=== PATIENT | male | born 1950 | race Caucasian/White ===

== ENCOUNTER 2016-12-11 10:20 | Emergency (ER) | payer OTHER ==
[~2016-12-11 10:20] MED LIST: CYMB30CA PO; HYDR-2768 PO; LORTA5 PO; NEUR100C PO; SIMV5TAB32 PO; WAL-10TA2 PO
[2016-12-11 10:32] VITALS: BP 146/88; PULSE 75; RESP 18; TEMP 97.4; O2SAT 97
[2016-12-11] MEDS ORDERED: PROPARACAINE HCL 0.5% OPHT SOLN 15 ML BTL EACH EYE ONE (11:30)
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
[2016-12-11] MEDS ORDERED: ERYTOIN10 RIGHT EYE (11:37)
== END 2016-12-11 12:14 | disposition home or self-care (01) ==
LOC: PHEFT 10:20
DX: H10.31 Unspecified acute conjunctivitis, right eye (principal); I10 Essential (primary) hypertension; E78.00 Pure hypercholesterolemia, unspecified; Z87.09 Personal history of other diseases of the respiratory system; Z85.6 Personal history of leukemia; Z86.79 Personal history of other diseases of the circulatory system; Z86.2 Personal history of diseases of the blood and blood-forming organs and certain disorders involving the immune mechanism
CPT/HCPCS: 99283

== ENCOUNTER 2017-09-25 09:59 | Inpatient (IN) ==
--- NOTE | 2017-09-25 10:39 | ED ---
HPI General Chief complaint: Back Pain/Injury Stated complaint: Rt Side Cramping/Headache x 4 Days Time Seen by Provider: 09/25/17 10:17 History of Present Illness HPI narrative: 67-year-old male history of CLL here for evaluation of headache and numbness/tingling on his right side. Patient states that the headache started 4 days ago, was in the left side, rated 7 out of 10, comes and goes, he thought it is going to get better on its own but this morning patient woke up with numbness and tingling on his right side that started about 5 hours ago and it subsided on its own 2 hours prior to arrival to the ER. Patient states that the numbness and tingling on his right side was associated with gait instability /slow gait. The numbness/tingling went away but the slow gait is still there, he has no blurred vision, no slurred speech, no weakness or sensory loss. Patient has a history of CLL and takes oral Ibrutinib 140 mg 2 PILLS a day, he says that it usually gives him bruises, he denies any black stool, no fever or chills, no cough or congestion. No chest pain or abdominal pain. His hematology oncology is Dr. Pink at [place] Related Data Home Medications Medication Instructions Recorded Confirmed allopurinol 300 mg PO DAILY 09/25/17 09/25/17 hydrochlorothiazide 25 mg PO DAILY 09/25/17 09/25/17 loratadine 10 mg PO DAILY 09/25/17 09/25/17 simvastatin 40 mg PO QPM 09/25/17 09/25/17 sodium chloride [Nasal [place] 1 spray INTRANASAL Q4H PRN 09/25/17 09/25/17 (sodium chloride)] Allergies Allergy/AdvReac Type Severity Reaction Status Date / Time IgA less than or equal to 50 Allergy Severe Anaphylaxis Verified 09/25/17 10:01 mcg/mL immune globulin,alpha (IgA) Allergy Severe Anaphylaxis Verified 09/25/17 10:01 greater than 50 mcg/mL immune globulin,gamma (IgG) Allergy Severe Anaphylaxis Verified 09/25/17 10:01 human Review of Systems Except as stated in HPI: all other systems reviewed are negative PMFSH Medical History Medical History Leukemia, lymphocytic (Acute) Surgical History Surgical History H/O cataract removal with insertion of prosthetic lens (Acute) H/O sinus surgery (Acute) Social History Social History Substance History: No History of Abuse Second Hand Smoke Exposure: No Smoking Status: Former smoker Packs Per Day: 2 Cigarettes Per Day: 40.0 Years Smoked: 20 Pack-Years: 40.00 Smoking End Date: 40 years ago How Often Do You Have a Drink Containing Alcohol: 4 or more times a week Recent Travel in [facility] within the Last 8 Weeks: No Recent Out of Country Travel within the Last 8 Weeks: No Immunization History Tetanus Immunization: <5 Years Hx Influenza Vaccine This Season: Yes Exam Narrative Exam Narrative: GENERAL: Alert oriented x3 no acute distress. SKIN: Focused skin assessment warm/dry. HEAD: Atraumatic. Normocephalic. EYES: Pupils equal and round. No scleral icterus. No injection or drainage. ENT: No nasal bleeding or discharge. Mucous membranes pink and moist. NECK: Trachea midline. No JVD. CARDIOVASCULAR: Regular rate and rhythm. No murmur appreciated. RESPIRATORY: No accessory muscle use. Clear to auscultation. Breath sounds equal bilaterally. GASTROINTESTINAL: Abdomen soft, non-tender, nondistended. Hepatic and splenic margins not palpable. MUSCULOSKELETAL: No obvious deformities. No clubbing. No cyanosis. No edema. NEUROLOGICAL: Awake and alert. No obvious cranial nerve deficits. Motor grossly within normal limits. Normal speech. PSYCHIATRIC: Appropriate mood and affect; insight and judgment normal. [place] Coma Scale 15 Course Initial Documented Vital Signs Temperature 97.4 F L 09/25/17 10:02 Pulse Rate 78 09/25/17 10:02 Respiratory Rate 18 09/25/17 10:02 Blood Pressure 157/75 H 09/25/17 10:02 Pulse Oximetry 96 09/25/17 10:02 Last Documented Vital Signs Temperature 99 F 09/28/17 06:00 Pulse Rate 58 L 09/28/17 06:00 Respiratory Rate 18 09/28/17 09:54 Blood Pressure 138/67 09/28/17 06:00 Pulse Oximetry 98 09/28/17 06:00 Medical Decision Making MDM Narrative Medical decision making narrative: 67-year-old male here for evaluation of headache since 5 days ago has been getting worse and associated with right- sided numbness and tingling and gait imbalance. Physical examination shows no neurological findings, labs consistent with CLL including leukocytosis, patient usually has leukocytosis and the last CBC showed WBCs of 188,000. CAT scan of the head shows subdural hematoma on the left was 9 mm midline shift, vitals are stable. [place] Coma Scale 15, pupillary reflexes intact, I spoke with , neurosurgeon who accepted the patient. Reexamination of the patient prior to transfer shows no change in the clinical picture or the physical exam findings. [place] Coma Scale prior to transfer is still 15. Lab Data Result diagrams: 09/26/17 04:10 09/26/17 04:10 Lab Results 09/25/17 09/25/17 09/25/17 Range/Units 10:43 10:43 10:43 CBC w Diff Slide review pending WBC 170.3 H (4.0-11.0) th/mm3 RBC 3.78 L (4.50-5.90) mil/mm3 Hgb 12.0 L (13.0-17.0) gm/dL Hct 35.7 L (39.0-51.0) % MCV 94.6 (80.0-100.0) fL MCH 31.7 (27.0-34.0) pg MCHC 33.5 (32.0-36.0) % RDW 16.3 (11.6-17.2) % Plt Count 163 (150-450) th/mm3 MPV 9.3 (7.0-11.0) fL Neut % (Auto) 8.6 L (16.0-70.0) % Lymph % (Auto) 89.6 H (9.0-44.0) % [place] % (Auto) 1.5 (0.0-8.0) % Eos % (Auto) 0.1 (0.0-4.0) % Baso % (Auto) 0.2 (0.0-2.0) % Neut # (Auto) 14.6 H (1.8-7.7) th/mm3 Lymph # (Auto) 152.6 H (1.0-4.8) th/mm3 [place] # (Auto) 2.6 H (0.0-0.9) th/mm3 Eos # (Auto) 0.2 (0.0-0.4) th/mm3 Baso # (Auto) 0.3 H (0.0-0.2) th/mm3 WBC Differential Manual diff final Seg Neuts % (Manual) 8 L (16-70) % Lymphocytes % (Manual) 92 H (9-44) % Abs Neuts (Manual) 13.6 H (1.8-7.7) th/mm3 Smudge Cells Present H (None) Platelet Estimate Normal (Normal) Platelet Morphology Normal (Normal) PT 9.5 L (9.8-11.6) sec INR 0.9 Ratio APTT 28.4 (24.3-30.1) sec Sodium 132 L (136-145) meq/L Potassium 3.4 L (3.5-5.1) meq/L Chloride 96 L (98-107) meq/L Carbon Dioxide 26.8 (21.0-32.0) meq/L Anion Gap 9 (5-15) meq/L BUN 12 (7-18) mg/dL Creatinine 1.00 (0.60-1.30) mg/dL Estimated GFR 74 L (>89) mL/min Random Glucose 115 H (74-106) mg/dL Lactic Acid (0.4-2.0) mmol/L Calcium 9.1 (8.5-10.1) mg/dL Total Bilirubin 0.6 (0.2-1.0) mg/dL AST 119 H (15-37) U/L ALT 249 H (12-78) U/L Alkaline Phosphatase 286 H (45-117) U/L Ammonia (11-32) mcmol/L Troponin I Less than 0.02 L (0.02-0.05) ng/mL Total Protein 7.0 (6.4-8.2) g/dL Albumin 3.2 L (3.4-5.0) g/dL TSH (0.358-3.740) uIU/mL Blood Type Blood Type Recheck Antibody Screen Bld Prod Order Comment 09/25/17 09/25/17 09/25/17 Range/Units 10:43 10:43 18:24 CBC w Diff WBC (4.0-11.0) th/mm3 RBC (4.50-5.90) mil/mm3 Hgb (13.0-17.0) gm/dL Hct (39.0-51.0) % MCV (80.0-100.0) fL MCH (27.0-34.0) pg MCHC (32.0-36.0) % RDW (11.6-17.2) % Plt Count (150-450) th/mm3 MPV (7.0-11.0) fL Neut % (Auto) (16.0-70.0) % Lymph % (Auto) (9.0-44.0) % [place] % (Auto) (0.0-8.0) % Eos % (Auto) (0.0-4.0) % Baso % (Auto) (0.0-2.0) % Neut # (Auto) (1.8-7.7) th/mm3 Lymph # (Auto) (1.0-4.8) th/mm3 [place] # (Auto) (0.0-0.9) th/mm3 Eos # (Auto) (0.0-0.4) th/mm3 Baso # (Auto) (0.0-0.2) th/mm3 WBC Differential Seg Neuts % (Manual) (16-70) % Lymphocytes % (Manual) (9-44) % Abs Neuts (Manual) (1.8-7.7) th/mm3 Smudge Cells (None) Platelet Estimate (Normal) Platelet Morphology (Normal) PT (9.8-11.6) sec INR Ratio APTT (24.3-30.1) sec Sodium (136-145) meq/L Potassium (3.5-5.1) meq/L Chloride (98-107) meq/L Carbon Dioxide (21.0-32.0) meq/L Anion Gap (5-15) meq/L BUN (7-18) mg/dL Creatinine (0.60-1.30) mg/dL Estimated GFR (>89) mL/min Random Glucose (74-106) mg/dL Lactic Acid 0.7 (0.4-2.0) mmol/L Calcium (8.5-10.1) mg/dL Total Bilirubin (0.2-1.0) mg/dL AST (15-37) U/L ALT (12-78) U/L Alkaline Phosphatase (45-117) U/L Ammonia 13 (11-32) mcmol/L Troponin I (0.02-0.05) ng/mL Total Protein (6.4-8.2) g/dL Albumin (3.4-5.0) g/dL TSH (0.358-3.740) uIU/mL Blood Type O Positive Blood Type Recheck Required Antibody Screen Negative Bld Prod Order Comment 09/26/17 09/26/17 09/26/17 Range/Units 04:10 04:10 06:00 CBC w Diff WBC 153.7 H (4.0-11.0) th/mm3 RBC 3.37 L (4.50-5.90) mil/mm3 Hgb 10.1 L (13.0-17.0) gm/dL Hct 31.1 L (39.0-51.0) % MCV 92.4 (80.0-100.0) fL MCH 30.1 (27.0-34.0) pg MCHC 32.6 (32.0-36.0) % RDW 16.4 (11.6-17.2) % Plt Count 163 (150-450) th/mm3 MPV 10.7 (7.0-11.0) fL Neut % (Auto) (16.0-70.0) % Lymph % (Auto) (9.0-44.0) % [place] % (Auto) (0.0-8.0) % Eos % (Auto) (0.0-4.0) % Baso % (Auto) (0.0-2.0) % Neut # (Auto) (1.8-7.7) th/mm3 Lymph # (Auto) (1.0-4.8) th/mm3 [place] # (Auto) (0.0-0.9) th/mm3 Eos # (Auto) (0.0-0.4) th/mm3 Baso # (Auto) (0.0-0.2) th/mm3 WBC Differential Seg Neuts % (Manual) (16-70) % Lymphocytes % (Manual) (9-44) % Abs Neuts (Manual) (1.8-7.7) th/mm3 Smudge Cells (None) Platelet Estimate (Normal) Platelet Morphology (Normal) PT (9.8-11.6) sec INR Ratio APTT (24.3-30.1) sec Sodium 136 (136-145) meq/L Potassium 3.5 (3.5-5.1) meq/L Chloride 100 (98-107) meq/L Carbon Dioxide 24.5 (21.0-32.0) meq/L Anion Gap 12 (5-15) meq/L BUN 13 (7-18) mg/dL Creatinine 0.99 (0.60-1.30) mg/dL Estimated GFR 75 L (>89) mL/min Random Glucose 94 (74-106) mg/dL Lactic Acid (0.4-2.0) mmol/L Calcium 8.5 (8.5-10.1) mg/dL Total Bilirubin 0.5 (0.2-1.0) mg/dL AST 51 H (15-37) U/L ALT 158 H (12-78) U/L Alkaline Phosphatase 269 H (45-117) U/L Ammonia (11-32) mcmol/L Troponin I (0.02-0.05) ng/mL Total Protein 6.0 L D (6.4-8.2) g/dL Albumin 2.8 L (3.4-5.0) g/dL TSH 1.840 Cancelled (0.358-3.740) uIU/mL Blood Type Blood Type Recheck Antibody Screen Bld Prod Order Comment 09/26/17 09/26/17 Range/Units 08:28 08:28 CBC w Diff WBC (4.0-11.0) th/mm3 RBC (4.50-5.90) mil/mm3 Hgb (13.0-17.0) gm/dL Hct (39.0-51.0) % MCV (80.0-100.0) fL MCH (27.0-34.0) pg MCHC (32.0-36.0) % RDW (11.6-17.2) % Plt Count (150-450) th/mm3 MPV (7.0-11.0) fL Neut % (Auto) (16.0-70.0) % Lymph % (Auto) (9.0-44.0) % [place] % (Auto) (0.0-8.0) % Eos % (Auto) (0.0-4.0) % Baso % (Auto) (0.0-2.0) % Neut # (Auto) (1.8-7.7) th/mm3 Lymph # (Auto) (1.0-4.8) th/mm3 [place] # (Auto) (0.0-0.9) th/mm3 Eos # (Auto) (0.0-0.4) th/mm3 Baso # (Auto) (0.0-0.2) th/mm3 WBC Differential Seg Neuts % (Manual) (16-70) % Lymphocytes % (Manual) (9-44) % Abs Neuts (Manual) (1.8-7.7) th/mm3 Smudge Cells (None) Platelet Estimate (Normal) Platelet Morphology (Normal) PT (9.8-11.6) sec INR Ratio APTT (24.3-30.1) sec Sodium (136-145) meq/L Potassium (3.5-5.1) meq/L Chloride (98-107) meq/L Carbon Dioxide (21.0-32.0) meq/L Anion Gap (5-15) meq/L BUN (7-18) mg/dL Creatinine (0.60-1.30) mg/dL Estimated GFR (>89) mL/min Random Glucose (74-106) mg/dL Lactic Acid (0.4-2.0) mmol/L Calcium (8.5-10.1) mg/dL Total Bilirubin (0.2-1.0) mg/dL AST (15-37) U/L ALT (12-78) U/L Alkaline Phosphatase (45-117) U/L Ammonia (11-32) mcmol/L Troponin I (0.02-0.05) ng/mL Total Protein (6.4-8.2) g/dL Albumin (3.4-5.0) g/dL TSH (0.358-3.740) uIU/mL Blood Type O Positive Blood Type Recheck Not needed Antibody Screen Bld Prod Order Comment Cancelled Imaging Data Radiologist's impression: ITS Impressions Chest X-Ray 09/25/17 00:00 CONCLUSION: Mild basilar opacity, probably atelectasis. Small right pleural effusion. Head CT 09/25/17 10:29 CONCLUSION: 1. Acute left-sided subdural hematoma with [id number] midline shift of 9 mm. Liver Ultrasound 09/26/17 00:00 CONCLUSION: 1. Hepatosplenomegaly with mild increase in hepatic echogenicity. Differential considerations include hepatitis, hepatic steatosis or medical liver disease. 2. Diffuse gallbladder wall thickening. This finding is typically seen with chronic liver disease/hypoalbuminemia. Discharge Plan Discharge Disposition Patient Disposition: 02 [place] [facility] [place] Condition: Stable Physicians Team ED Provider: Yamil Randle Attending Provider: See Rich Other Providers: Maria Isabel Hernandez ; Willie Gallagher Discharge Interventions Interventions: ED Discharge Assessment Last Done: 09/25/17 12:35 Vital Signs Last Done: 09/25/17 12:11 Status ED Status: Left Department Discharge Information Discharge Date/Time: 09/25/17 12:35
[2017-09-25 10:55] LABS: Baso # (Auto) 0.3 th/mm3 (0.0-0.2); Baso % (Auto) 0.2 % (0.0-2.0); Eos # (Auto) 0.2 th/mm3 (0.0-0.4); Eos % (Auto) 0.1 % (0.0-4.0); Hematocrit 35.7 % (39.0-51.0); Lymph # (Auto) 152.6 th/mm3 (1.0-4.8); Lymph % (Auto) 89.6 % (9.0-44.0); Mean Corpuscular HGB Conc 33.5 % (32.0-36.0); Mean Corpuscular Hemoglobin 31.7 pg (27.0-34.0); Mean Corpuscular Volume 94.6 fL (80.0-100.0); Mean Platelet Volume 9.3 fL (7.0-11.0); Mono # (Auto) 2.6 th/mm3 (0.0-0.9); Mono % (Auto) 1.5 % (0.0-8.0); Neut # (Auto) 14.6 th/mm3 (1.8-7.7); Neut % (Auto) 8.6 % (16.0-70.0); Platelet Count 163 th/mm3 (150-450); Red Blood Count 3.78 mil/mm3 (4.50-5.90); Red Cell Distribution Width 16.3 % (11.6-17.2); White Blood Count 170.3 th/mm3 (4.0-11.0)
[2017-09-25 11:02] LABS: Chloride 96 meq/L (98-107); Potassium 3.4 meq/L (3.5-5.1); Sodium 132 meq/L (136-145)
[2017-09-25 11:05] LABS: Calcium 9.1 mg/dL (8.5-10.1)
[2017-09-25 11:06] LABS: Albumin 3.2 g/dL (3.4-5.0); Anion Gap 9 meq/L (5-15); Blood Urea Nitrogen 12 mg/dL (7-18); Carbon Dioxide 26.8 meq/L (21.0-32.0); Glucose,Random 115 mg/dL (74-106)
[2017-09-25 11:08] LABS: Activated Partial Thrombo Time 28.4 sec (24.3-30.1); INR 0.9 Ratio; Prothrombin Time 9.5 sec (9.8-11.6)
[2017-09-25 11:09] LABS: Alanine Aminotransferase 249 U/L (12-78); Aspartate Aminotransferase 119 U/L (15-37); Glomerular Filtration Rate 74 mL/min (>89)
[2017-09-25 11:12] LABS: Alkaline Phosphatase 286 U/L (45-117)
[2017-09-25 11:22] LABS: Lymphocytes 92 % (9-44); Platelet Estimate Normal (Normal); Platelet Morphology Normal (Normal); Smudge Cells Present
[2017-09-25] MEDS ORDERED: Morphine Sulfate Inj 2 MG/ML Vial IV.PUSH ONE (12:07)
[2017-09-25] MEDS ORDERED: Thrombin Topical Soln 5,000 UNIT Vial TOPICAL ONE (13:19)
[2017-09-25] MEDS ORDERED: Bupivacaine/Epinephrine 0.5% Inj 50 ML Vial ONE (13:19)
[2017-09-25] MEDS ORDERED: Gelatin Size 100 Topical Foam ONE (13:19)
[2017-09-25] MEDS ORDERED: Sodium Chlor 0.9% Inj 250 ML ONE (13:24)
[2017-09-25] MEDS ORDERED: Sugammadex Inj 200 MG/2 ML Vial IV.PUSH ONE (13:28)
--- NOTE | 2017-09-25 14:13 | P.CONCC ---
History of Present Illness Consult date: 09/25/17 Requesting Physician: See Rich Reason for Consult: SDH Primary Care Provider: [facility] Family Provider: [facility] History of Present Illness: 67 yo WM with PMH of CLL (diagnosed 2007), HTN, HLD, gout who presented with 4 day history of headache. Today he had numbness and tingling on his right side and unsteady gait. CT brain demonstrates acute/subacute L subdural, 2.3 cm with 9 mm midline shift. He denies known trauma. He is not on anticoagulant however he has been treated for his CLL with ibrutinib. He states this was causing bruising so he held it for 30 days and resumed 09/12/17 at a lower dose. His last dose was the morning of 09/24. Review of medical literature indicates this drug is associated with spontaneous SDH and would place patient at risk for operative bleeding. Discussed with Dr. Gallagher and Dr. Rich regarding implications for operative timing. His oncologist is Dr. Minor at [facility] in [place]. Review of Systems All other systems reviewed negative except as stated in HPI PMFSH - History History Provided By: Patient - Medical History Medical History: Medical History (Last Updated 09/25/17 @ 10:24 by Keisha Clemente) Leukemia, lymphocytic - Surgical History Surgical History: Surgical History (Last Updated 09/25/17 @ 10:26 by Keisha Clemente) H/O cataract removal with insertion of prosthetic lens H/O sinus surgery - Tobacco History Second Hand Smoke Exposure: No Tobacco Use In Past 30 Days: No Smoking Status: Former smoker Packs Per Day: 2 Years Smoked: 20 Smoking End Date: 40 years ago - Alcohol History How Often Do You Have a Drink Containing Alcohol: 4 or more times a week - Substance Use History Substance History: No History of Abuse - Travel History Recent Travel in the [place] Within the Last 8 Weeks: No Recent Travel Out of the Country Within the Last 8 Weeks: No - Immunization History Tetanus Immunization: <5 Years Hx Influenza Vaccine This Season: Yes Medications and Allergies Allergies Allergy/AdvReac Type Severity Reaction Status Date / Time IgA less than or equal to 50 Allergy Severe Anaphylaxis Verified 09/25/17 10:01 mcg/mL immune globulin,alpha (IgA) Allergy Severe Anaphylaxis Verified 09/25/17 10:01 greater than 50 mcg/mL immune globulin,gamma (IgG) Allergy Severe Anaphylaxis Verified 09/25/17 10:01 human Home Medications Medication Instructions Recorded Confirmed Type allopurinol 300 mg PO DAILY 09/25/17 09/25/17 History hydrochlorothiazide 25 mg PO DAILY 09/25/17 09/25/17 History loratadine 10 mg PO DAILY 09/25/17 09/25/17 History simvastatin 40 mg PO QPM 09/25/17 09/25/17 History sodium chloride [Nasal [place] 1 spray INTRANASAL Q4H PRN 09/25/17 09/25/17 History (sodium chloride)] Physical Exam Vital signs: Vital Signs 09/25/17 10:02 09/25/17 11:22 09/25/17 12:11 Temperature 97.4 F L Pulse Rate 78 75 71 Respiratory Rate 18 20 16 Blood Pressure 157/75 H 148/89 H 153/86 H Pulse Oximetry 96 96 96 Intake & Output 09/24/17 09/25/17 09/25/17 18:59 06:59 18:59 Weight 91.1 kg Narrative: GENERAL: Well-nourished, well-developed patient who is alert and conversant SKIN: Warm and dry. No petechiae HEAD: Atraumatic. Normocephalic. EYES: Pupils equal and round. No scleral icterus. No injection or drainage. ENT: No nasal bleeding or discharge. Mucous membranes pink and moist. NECK: Trachea midline. No JVD. CARDIOVASCULAR: Regular rate and rhythm. No murmurs rubs or gallops. RESPIRATORY: No accessory muscle use. Clear to auscultation. Breath sounds equal bilaterally. On room air. GASTROINTESTINAL: Abdomen soft, non-tender, nondistended. Bowel sounds present. MUSCULOSKELETAL: Extremities without clubbing, cyanosis, or edema. No obvious deformities. NEUROLOGICAL: Awake and alert. Oriented 3. At times having difficulty recalling certain details of his medical history. No obvious cranial nerve deficits, no facial droop, normal tongue protrusion. Motor grossly within normal limits. Five out of 5 muscle strength in the arms and legs. Some fine motor deficits of right hand Normal speech. No pronator drift. Assessment and Plan - Problem List (1) Subdural hematoma Code(s): S06.5X9A - Traumatic subdural hemorrhage with loss of consciousness of unspecified duration, initial encounter Status: Acute (2) CLL (chronic lymphocytic leukemia) Code(s): C91.90 - Lymphoid leukemia, unspecified not having achieved remission Status: Chronic (3) Bleeding in brain due to blood coagulation disorder Code(s): I60.9 - Nontraumatic subarachnoid hemorrhage, unspecified; D68.9 - Coagulation defect, unspecified Status: Acute (4) HTN (hypertension) Code(s): I10 - Essential (primary) hypertension Status: Chronic (5) HLD (hyperlipidemia) Code(s): E78.5 - Hyperlipidemia, unspecified Status: Chronic (6) Transaminitis Code(s): R74.0 - Nonspecific elevation of levels of transaminase and lactic acid dehydrogenase [LDH] Status: Chronic (7) Hypokalemia Code(s): E87.6 - Hypokalemia Status: Acute (8) Hyponatremia Code(s): E87.1 - Hypo-osmolality and hyponatremia Status: Chronic - Assessment and Plan Plan: NEURO: Acute on subacute left subdural hematoma, 2.3 cm with 9 mm midline shift. Admission to [facility] with neuro monitoring Hold ibrutinib. Will not be a candidate for resuming this, will need alternate therapy for CLL as this likely contributed to SDH. Keppra 500 mg po bid. Plan for eventual SDH evacuation, though discussing operative timing in view of antiplatelet effect of ibrutinib. Neurosurgery admitted, Dr. Rich RESP: On room air He is currently protecting his airway. Will intubate if loss of airway protection. CV: Hypertension Hyperlipidemia Hold statin for now, LFTs elevated. Labetalol prn for SBP >170 per NSG. GI: Transaminitis. Passed swallow screen. Regular diet Elevated LFT ?2ry CLL. Trend LFTs. Right upper quadrant ultrasound. FEN/RENAL: Mild Hyponatremia Hypokalemia Trend sodium daily. Hold HCTZ which may contribute to hyponatremia. 0.9 NaCL with 20 MEq KCL/L @ 100/hr. Voiding Replace electrolytes per electrolyte protocol. ID: Monitor for signs and symptoms of infection HEME: CLL - WBC 170k (per Dr. Gallagher this is expected effect of reinitiation of ibrutinib on 09/12) Coags and platelet count normal. Ibrutinib causes bleeding, T1/2 4-6 hours.. Causes platelet dysfunction (which may be irreversible for life of platelets) but appears mechanism of bleeding risk is not entirely clear and no reversal agent. Discussed with Dr. Gallagher who would recommend holding off on surgery if possible. I contacted Dr. Rich and will hold off on OR today unless declines neurologically and it becomes unavoidable. Will transfuse with platelets preoperatively. Dr. Gallagher also indicates that alternate agent must be chosen in the future for CLL management. ENDO: Check TSH PROPH: SCDs for DVT prophylaxis. Pharmacology DVT prophylaxis contraindicated due to subdural. ACCESS: Peripheral IV providing adequate access at this time. Patient is critically ill with acute on subacute subdural hematoma which will require eventual operative evacuation. Requires close monitoring in ICU due to risk of loss of airway protection. Required literature review, urgent consultation with Dr. Gallagher and discussion with Dr. Rich due to implications of chemotherapeutic agent on bleeding risk and operative timing. CCT 60 minutes exclusive of separately billable procedures.
--- NOTE | 2017-09-25 14:21 | P.HPNS ---
History of Present Illness Primary Care Physician: [facility] History of Present Illness: 67-year-old male history of chronic lymphocytic leukemia who presented to [facility] emergency room today for evaluation of headache and numbness/tingling on his right side. Patient states that the headache started 4 days ago, was in the left side, rated 7 out of 10, comes and goes associated with nausea, he thought it is going to get better on its own but this morning patient woke up with numbness and weakness on his right side that started about 5 hours ago and subsequently did improve prior to arrival to the ER. Patient states that the numbness and tingling on his right side was associated with gait instability/ slow gait. He relates that the numbness has resolved and the weakness is gotten better but not resolved and has persistent abnormal, he has no blurred vision, no slurred speech, no weakness or sensory loss. Patient has a history of CLL and takes oral Ibrutinib 140 mg 2 PILLS a day, he says that it usually gives him bruises, he denies any black stool, no fever or chills, no cough or congestion. No chest pain or abdominal pain. His hematology oncology is Dr. Pink at [place]. CT scan of the head obtained reveals a large left sided acute on chronic subdural hemorrhage with mass-effect and midline shift. He denies any history of falls or trauma to the head any time in the last several weeks. He is transferred to [facility] intensive care unit for further management. - Diagnosis (1) Subdural hematoma (2) CLL (chronic lymphocytic leukemia) (3) Bleeding in brain due to blood coagulation disorder - Inpatient Certification If this patient has been admitted as an Inpatient: I certify that the inpatient services were ordered in accordance with Medicare regulations governing the order. This includes certification that hospital inpatient services are reasonable and necessary and in the case of services not specified as inpatient-only under 42 CFR 419.22(n), that they are appropriately provided as inpatient services in accordance to with the 2-midnight benchmark under 43 CFR 412.3(e) Review of Systems Constitutional: Reports body ache(s), Reports fatigue, Reports headache(s), Reports weakness Ears, Nose, Mouth, and Throat: Reports headache(s), Reports poor balance Gastrointestinal: Reports abdominal pain, Reports vomiting Musculoskeletal: Reports muscle cramps, Reports muscle weakness, Reports numbness, Reports tingling Skin/Breast: Reports bleeding lesions, Reports unusual bruising Neurologic: Reports headache(s), Reports lack of coordination, Reports localized weakness, Reports numbness, Reports sensory deficit, Reports tingling , Reports unsteadiness, Reports weakness Hematologic/Lymphatic: Reports easy bleeding, Reports easy bruising PMFSH - History History Provided By: Patient - Medical History Medical History: Medical History (Last Updated 09/25/17 @ 10:24 by Keisha Clemente) Leukemia, lymphocytic - Surgical History Surgical History: Surgical History (Last Updated 09/25/17 @ 10:26 by Keisha Clemente) H/O cataract removal with insertion of prosthetic lens H/O sinus surgery - Tobacco History Second Hand Smoke Exposure: No Tobacco Use In Past 30 Days: No Smoking Status: Former smoker - Alcohol History How Often Do You Have a Drink Containing Alcohol: 4 or more times a week ( Drinks of 5 beers a day) - Substance Use History Substance History: No History of Abuse - Travel History Recent Travel in the [facility] Within the Last 8 Weeks: No Recent Travel Out of the Country Within the Last 8 Weeks: No - Immunization History Tetanus Immunization: <5 Years Hx Influenza Vaccine This Season: Yes Medications and Allergies Allergies Allergy/AdvReac Type Severity Reaction Status Date / Time IgA less than or equal to 50 Allergy Severe Anaphylaxis Verified 09/25/17 10:01 mcg/mL immune globulin,alpha (IgA) Allergy Severe Anaphylaxis Verified 09/25/17 10:01 greater than 50 mcg/mL immune globulin,gamma (IgG) Allergy Severe Anaphylaxis Verified 09/25/17 10:01 human Home Medications Medication Instructions Recorded Confirmed Type allopurinol 300 mg PO DAILY 09/25/17 09/25/17 History hydrochlorothiazide 25 mg PO DAILY 09/25/17 09/25/17 History ibrutinib 280 mg PO DAILY 09/25/17 09/25/17 History loratadine 10 mg PO DAILY 09/25/17 09/25/17 History simvastatin 40 mg PO QPM 09/25/17 09/25/17 History sodium chloride [Nasal [place] 1 spray INTRANASAL Q4H PRN 09/25/17 09/25/17 History (sodium chloride)] Exam Vital signs: Vital Signs 09/25/17 10:02 09/25/17 11:22 09/25/17 12:11 Temperature 97.4 F L Pulse Rate 78 75 71 Respiratory Rate 18 20 16 Blood Pressure 157/75 H 148/89 H 153/86 H Pulse Oximetry 96 96 96 Intake & Output 09/24/17 09/25/17 09/25/17 18:59 06:59 18:59 Weight 91.1 kg - Constitutional no acute distress, obese - Routine HEENT Exam Head: Present: normocephalic, atraumatic Eye: Present: EOMI, PERRL ENT: Present: mucous membranes moist, oropharynx clear, dentition normal (Wears partial dentures), external ear normal - Routine Neck Exam Present: supple, full ROM, trachea midline - Routine Respiratory Exam Present: CTA bilaterally - Routine Cardiovascular Exam Present: RRR, S1 - Routine Abdominal Exam Present: soft, normoactive bowel sounds, tenderness (Right upper quadrant) - Routine Extremities Exam Present: full ROM, normal capillary refill - Routine Skin Exam Present: intact, petechiae - Routine Neurological Exam Present: alert, oriented X3, CN II-XII intact, motor deficit (Mild right-sided weakness especially the right leg 4/5), plantar reflex, abnormal gait, moving all extremities, normal speech Results - Laboratory Findings CBC and BMP: 09/25/17 10:43 09/25/17 10:43 Abnormal lab findings: Abnormal Labs 09/25/17 09/25/17 09/25/17 10:43 10:43 10:43 WBC 170.3 H RBC 3.78 L Hgb 12.0 L Hct 35.7 L Neut % (Auto) 8.6 L Lymph % (Auto) 89.6 H Neut # (Auto) 14.6 H Lymph # (Auto) 152.6 H Payne # (Auto) 2.6 H Baso # (Auto) 0.3 H Seg Neuts % (Manual) 8 L Lymphocytes % (Manual) 92 H Abs Neuts (Manual) 13.6 H Smudge Cells Present H PT 9.5 L Sodium 132 L Potassium 3.4 L Chloride 96 L Estimated GFR 74 L Random Glucose 115 H AST 119 H ALT 249 H Alkaline Phosphatase 286 H Troponin I Less than 0.02 L Albumin 3.2 L - Diagnostic Findings Additional findings: CT scan of the head shows large left frontotemporoparietal 2.3 cm thick subdural hemorrhage acute on chronic components with mass-effect and midline shift about 10 mm left to right Caprini VTE Risk Assessment Caprini VTE Risk Assessment: Moderate/High Risk (score >= 2) VTE Pharmacological Exception Reason: Hemorrhage Caprini Risk Assessment Model: Point Value = 1 Point Value = 2 Point Value = 3 Point Value = 5 Age 41-60 Minor surgery BMI > 25 kg/m2 Swollen legs Varicose veins or History of unexplained or recurrent spontaneous Oral contraceptives or hormone replacement Sepsis (< 1 month) Serious lung disease, including pneumonia (< 1 month) Abnormal pulmonary function Acute myocardial infarction Congestive heart failure (< 1 month) History of inflammatory bowel disease Medical patient at bed rest Age 61-74 Arthroscopic surgery Major open surgery (> 45 min) Laparoscopic surgery (> 45 min) Malignancy Confined to bed (> 72 hours) Immobilizing plaster cast Central venous access Age >= 75 History of VTE Family history of VTE Factor V Leiden Prothrombin [id number] Lupus anticoagulant Anticardiolipin antibodies Elevated serum homocysteine Heparin-induced thrombocytopenia Other congenital or acquired thrombophilia Stroke (< 1 month) Elective arthroplasty Hip, pelvis, or leg fracture Acute spinal cord injury (< 1 month) Prophylaxis Regimen: Total Risk Factor Score Risk Level Prophylaxis Regimen 0-1 Low Early ambulation 2 Moderate Order ONE of the following: *Sequential Compression Device (SCD) *Heparin 5000 units SQ BID 3-4 Higher Order ONE of the following medications: *Heparin 5000 units SQ TID *Enoxaparin/Lovenox 40 mg SQ daily (WT < 150 kg, CrCl > 30 mL/min) *Enoxaparin/Lovenox 30 mg SQ daily (WT < 150 kg, CrCl > 10-29 mL/min) *Enoxaparin/Lovenox 30 mg SQ BID (WT < 150 kg, CrCl > 30 mL/min) AND/OR *Sequential Compression Device (SCD) 5 or more Highest Order ONE of the following medications: *Heparin 5000 units SQ TID (Preferred with Epidurals) *Enoxaparin/Lovenox 40 mg SQ daily (WT < 150 kg, CrCl > 30 mL/min) *Enoxaparin/Lovenox 30 mg SQ daily (WT < 150 kg, CrCl > 10-29 mL/min) *Enoxaparin/Lovenox 30 mg SQ BID (WT < 150 kg, CrCl > 30 mL/min) AND *Sequential Compression Device (SCD) Assessment and Plan - Assessment (1) Subdural hematoma Code(s): S06.5X9A - Traumatic subdural hemorrhage with loss of consciousness of unspecified duration, initial encounter Status: Acute (2) CLL (chronic lymphocytic leukemia) Code(s): C91.90 - Lymphoid leukemia, unspecified not having achieved remission Status: Acute (3) Bleeding in brain due to blood coagulation disorder Code(s): I60.9 - Nontraumatic subarachnoid hemorrhage, unspecified; D68.9 - Coagulation defect, unspecified Status: Acute - Plan The plan was for an emergent left craniotomy for subdural hemorrhage evacuation. Dr. Hernandez the merchandise execution leader discussed the side effects of the chemotherapy medication Ibrutinib with proj mgr Dr. Gallagher and was informed that this can affect platelet function and he would prefer that we will hold off on surgery until 48 hours from the last dose which will be tomorrow and also transfuse him with platelets prior to surgery to decrease risk of further bleeding complications. Accordingly at this point he will be admitted to the intensive care unit for close observation and monitoring. We will keep his head of bed elevated at 30, Keppra for seizure prophylaxis and mechanical DVT prophylaxis. Craniotomy will be scheduled for tomorrow with platelet transfusion prior to surgery unless his neurologic condition deteriorates overnight.
[2017-09-25] MEDS ORDERED: Sodium Chloride 0.65% Nasal Spray 45 ML Bottle EACH NARE PRN (14:26)
[2017-09-25] MEDS ORDERED: Calcium Gluconate Inj 1 GM in Sodium Chlor 0.9% Inj 100 ML IV.SIG PRN (14:27)
[2017-09-25] MEDS ORDERED: Bisacodyl 10 MG Supp RECTAL PRN (14:27)
[2017-09-25] MEDS ORDERED: Acetaminophen 325 MG Tablet PO PRN (14:27)
[2017-09-25] MEDS ORDERED: Magnesium Sulfate Inj 2 GM in Sodium Chlor 0.9% Inj 96 ML IV.SIG PRN (14:27)
[2017-09-25] MEDS ORDERED: Potassium Chlor 20 mEq Premix 20 MEQ/100 ML PIGGYBACK IV.SIG PRN (14:27)
[2017-09-25] MEDS ORDERED: Menthol 5.8 MG Lozenge BUCCAL PRN (14:27)
[2017-09-25] MEDS ORDERED: Aluminum/Magnesium/Simethacone Susp 30 ML UDC PO PRN (14:27)
[2017-09-25] MEDS ORDERED: levETIRAcetam 1000mg/100mL Inj 100 ML IV.SIG ONE (14:30)
--- NOTE | 2017-09-25 16:18 | XR ---
EXAM DATE: 09/25/2017 3:46 PM EDT AGE/SEX: 67 years / Male INDICATIONS: Shortness of breath. CLINICAL DATA: This is the patient's initial encounter. Patient reports that signs and symptoms have been present for 1 day and indicates a pain score of 0/10. MEDICAL/SURGICAL HISTORY: Asthma. None. COMPARISON: [facility], CHEST SINGLE AP, 11/30/2014. . FINDINGS: Mild basilar airspace disease. Probable trace right pleural fluid. Heart size within normal limits. T ortuous aorta. No pneumothorax. CONCLUSION: Mild basilar opacity, probably atelectasis. Small right pleural effusion. Electronically signed by: Stan Zayas MD 09/25/2017 4:17 PM EDT
[2017-09-25] MEDS: Morphine Inj 4 MG/ML Vial IV.PUSH PRN (18:32)
[2017-09-25] MEDS: levETIRAcetam 500 MG Tablet PO SCH (20:02)
[2017-09-25] MEDS: Senna/Docusate Sodium 8.6/50 MG Tablet PO SCH (20:02)
--- NOTE | 2017-09-25 21:23 | MB ---
cc: Willie Gallagher MD, Richard MD DATE: 09/25/2017 REASON FOR CONSULTATION: patient with chronic lymphocytic leukemia on ibrutinib with a subdural hematoma, which will require surgical evacuation. PATIENT PROFILE: The patient is a 67-year-old white male. He has been twice. He has 2 children, both sons. He was born in [place], [place]. He is retired and was a richards. He stopped smoking 40 years ago and had smoked less than a pack of cigarettes per day for 20 years. He has exposure to Agent [place] when he was in [place]. He has 5-6 beers per day. HISTORY OF PRESENT ILLNESS: The patient is a 67-year-old male who was diagnosed with chronic lymphocytic leukemia in 2007. He has had multiple treatments. His medical oncologist is Dr. Minor in [place], [place]. In 04/2017 the patient had a white count of 400,000 and had significant enlargement of lymph nodes. He was started on ibrutinib 3 tablets a day in 04/2017. The ibrutinib was successful with a marked decrease in the adenopathy, although, as expected the white count has remained elevated. He had significant ecchymoses and the ibrutinib was stopped for about a month. The ecchymoses resolved within about a week of stopping the ibrutinib. Approximately 6 weeks ago, the ibrutinib was started again at a dose of 2 pills per day. Four or 5 days ago, he developed headache and then clumsiness of gait. He also had some vague numbness or tingling on the right side. He denies any weakness involving either right or left side. He had a CT scan of the head on 09/25/2017. I have reviewed the images. He has an acute left subdural hematoma measuring 2-3 cm. There is mass effect and a left to right midline shift of 9 mm. Since his hospitalization, he indicates that there has been no deterioration. The last time he took ibrutinib was 09/24 at 2 p.m. Current CBC and platelet count from 09/25/2017: Hemoglobin 12, white count 170,000, platelets 163,000 with 89% lymphocytes and 8% neutrophils. PT is 9.5, PTT is 28. Electrolytes, BUN and creatinine notable for a bilirubin of 0.6, AST 119, ALT 249 and alkaline phosphatase is 286. Chest x-ray dated 09/25/2017 shows mild basilar opacity, probably atelectasis with a small right pleural effusion. PAST SURGICAL HISTORY: 1. Sinus surgery on 3 occasions. 2. Cataract surgery. PAST MEDICAL HISTORY: 1. Chronic lymphocytic leukemia, dating back to 2007. 2. Obesity. 3. Alcohol abuse. 4. Elevated cholesterol. 5. History of high blood pressure. MEDICATIONS PRIOR TO ADMISSION: 1. Ibrutinib 2 tablets a day, last tablet 2 p.m. 09/24. 2. Simvastatin 40 mg a day. 3. Hydrochlorothiazide 25 mg a day. 4. Allopurinol 300 mg a day. ALLERGIES: THE PATIENT MAY HAVE HAD A REACTION TO RITUXAN. FAMILY HISTORY: Noncontributory. REVIEW OF SYSTEMS: No change in vision or hearing. No chest pain, palpitations. No shortness of breath, cough. No abdominal or pelvic pain. No skin problems. No psychiatric problems. The only complaint is recent headaches, gait problem and slight numbness. PHYSICAL EXAMINATION: GENERAL: Reveals a well-appearing male. He is obese. VITAL SIGNS: Blood pressure 120/70, respiratory rate 18, pulse 80, afebrile, O2 saturation 93%. HEENT: Head is normocephalic. Sclerae and conjunctivae are normal. Oropharynx unremarkable. NECK: There is no cervical, supraclavicular, axillary or inguinal adenopathy. HEART: Regular rhythm. LUNGS: Clear. ABDOMEN: Mildly obese. No hepatosplenomegaly or masses. EXTREMITIES: Trace edema. MUSCULOSKELETAL: No bone pain. NEUROLOGIC: Some mild generalized weakness, but no lateralizing weakness on examination. ASSESSMENT AND PLAN: 1. The patient has a subdural hematoma. I suspect this is due to the ibrutinib. He had significant ecchymoses in the past and ibrutinib can cause bleeding. The mechanism is poorly understood, but it appears to be due to platelet function. The half life of ibrutinib is approximately 4-6 hours. Current recommendations are that an operation, especially a serious one should be avoided for at least 3 days and optimally 7 days. This gentleman may have a life threatening condition and therefore, under the present circumstances, I would try to wait at least 72 hours before operating. If he does require an operation before this time, I would recommend giving him platelets as ibrutinib appears to interfere with platelet function. I cannot state that administering platelets will resolve the bleeding risk. What is interesting is when this man had bruising before it resolved within 7 days of stopping the ibrutinib. 2. Chronic lymphocytic leukemia. The ibrutinib is certainly successful and, if he continues to take it, I believe it will effectively treat his cll, but the risks of further bleeding make the medication unacceptable. There are numerous other medications that he can avail himself of in the future. One of these medications is ventaclax. He has an oncologist in [place] whose name is Dr. Minor. He will followup with Dr. Minor unless he desires and can receive care locally. I have spoken with his critical care physician, Dr. Hernandez, and reviewed the case. I spoke with Dr. Rich and asked him to make every effort to wait 72 hours before,doing surgery and if he did have to do surgery before this to give him a platelet transfusion before the procedure. MD NICO Wilks/ , 08:50 PM , 09:21 PM MTDOpal
[2017-09-26 05:15] LABS: Hematocrit 31.1 % (39.0-51.0); Hemoglobin 10.1 gm/dL (13.0-17.0); Mean Corpuscular HGB Conc 32.6 % (32.0-36.0); Mean Corpuscular Hemoglobin 30.1 pg (27.0-34.0); Mean Corpuscular Volume 92.4 fL (80.0-100.0); Mean Platelet Volume 10.7 fL (7.0-11.0); Platelet Count 163 th/mm3 (150-450); Red Blood Count 3.37 mil/mm3 (4.50-5.90); Red Cell Distribution Width 16.4 % (11.6-17.2); White Blood Count 153.7 th/mm3 (4.0-11.0)
[2017-09-26 05:22] LABS: Alanine Aminotransferase 158 U/L (12-78); Albumin 2.8 g/dL (3.4-5.0); Anion Gap 12 meq/L (5-15); Aspartate Aminotransferase 51 U/L (15-37); Blood Urea Nitrogen 13 mg/dL (7-18); Calcium 8.5 mg/dL (8.5-10.1); Carbon Dioxide 24.5 meq/L (21.0-32.0); Chloride 100 meq/L (98-107); Glomerular Filtration Rate 75 mL/min (>89); Glucose,Random 94 mg/dL (74-106); Potassium 3.5 meq/L (3.5-5.1); Sodium 136 meq/L (136-145)
[2017-09-26 05:32] LABS: Alkaline Phosphatase 269 U/L (45-117)
[2017-09-26] MEDS ORDERED: Gelatin Size 100 Topical Foam ONE (07:12)
[2017-09-26] MEDS ORDERED: Bupivacaine/Epinephrine 0.5% Inj 50 ML Vial ONE (07:12)
--- NOTE | 2017-09-26 08:19 | P.PNCC ---
Subjective Subjective Remarks/Hospital Course: 09/25: 67 yo WM with PMH of CLL (diagnosed 2007), HTN, HLD, gout who presented with 4 day history of headache. Today he had numbness and tingling on his right side and unsteady gait. CT brain demonstrates acute/subacute L subdural, 2.3 cm with 9 mm midline shift. He denies known trauma. He is not on anticoagulant however he has been treated for his CLL with ibrutinib. He states this was causing bruising so he held it for 30 days and resumed 09/12/17 at a lower dose. His last dose was the morning of 09/24. Review of medical literature indicates this drug is associated with spontaneous SDH and would place patient at risk for operative bleeding. Discussed with Dr. Gallagher and Dr. Rich regarding implications for operative timing. His oncologist is Dr. Minor at [facility] in [place]. 09/26: Awake, disoriented. Not in any acute distress. Having some headache. Following commands. Objective Vital Signs / I&O: Vital Signs 09/25/17 10:02 09/25/17 11:22 09/25/17 12:11 Temperature 97.4 F L Pulse Rate 78 75 71 Respiratory Rate 18 20 16 Blood Pressure 157/75 H 148/89 H 153/86 H Pulse Oximetry 96 96 96 09/25/17 19:27 09/25/17 20:00 09/25/17 21:00 Temperature 98.4 F 98.4 F Pulse Rate 89 87 71 Respiratory Rate 18 18 21 Blood Pressure 128/69 128/69 135/70 Pulse Oximetry 93 L 93 L 93 L 09/25/17 22:00 09/25/17 23:00 09/26/17 00:00 Temperature 98.9 F Pulse Rate 72 Respiratory Rate 18 17 20 Blood Pressure 141/80 H 130/71 137/76 Pulse Oximetry 94 L 96 96 09/26/17 01:00 09/26/17 02:00 09/26/17 03:00 Temperature Pulse Rate 68 69 66 Respiratory Rate 17 16 17 Blood Pressure 137/69 135/63 133/71 Pulse Oximetry 92 L 95 91 L 09/26/17 04:00 09/26/17 06:00 Temperature 98.4 F Pulse Rate 67 79 Respiratory Rate 21 21 Blood Pressure 129/70 149/83 H Pulse Oximetry 95 Intake & Output 09/25/17 09/26/17 09/26/17 18:59 06:59 18:59 Intake Total 1475 / 1475 Output Total 520 / 520 Balance 955 / 955 Weight 91.1 kg 91.3 kg Intake: IV 995 / 995 NS + KCl 20 mEq Inj 1,000 ML @ 995 / 995 100 mls/hr IV.CONT .Q10H [facility] Rx #:[id number] Oral 480 / 480 Output: Urine 520 / 520 Other: Date of Last Bowel Movement 09/24/17 Weight On Admission 90.9 kg Result Diagrams: 09/26/17 04:10 09/26/17 04:10 Other Results: Laboratory Results - last 24 hr 09/25/17 09/25/17 09/25/17 10:43 10:43 10:43 CBC w Diff Slide review pending WBC 170.3 H RBC 3.78 L Hgb 12.0 L Hct 35.7 L MCV 94.6 MCH 31.7 MCHC 33.5 RDW 16.3 Plt Count 163 MPV 9.3 Neut % (Auto) 8.6 L Lymph % (Auto) 89.6 H [place] % (Auto) 1.5 Eos % (Auto) 0.1 Baso % (Auto) 0.2 Neut # (Auto) 14.6 H Lymph # (Auto) 152.6 H [place] # (Auto) 2.6 H Eos # (Auto) 0.2 Baso # (Auto) 0.3 H WBC Differential Manual diff final Seg Neuts % (Manual) 8 L Lymphocytes % (Manual) 92 H Abs Neuts (Manual) 13.6 H Smudge Cells Present H Platelet Estimate Normal Platelet Morphology Normal PT 9.5 L INR 0.9 APTT 28.4 Sodium 132 L Potassium 3.4 L Chloride 96 L Carbon Dioxide 26.8 Anion Gap 9 BUN 12 Creatinine 1.00 Estimated GFR 74 L Random Glucose 115 H Lactic Acid Calcium 9.1 Total Bilirubin 0.6 AST 119 H ALT 249 H Alkaline Phosphatase 286 H Ammonia Troponin I Less than 0.02 L Total Protein 7.0 Albumin 3.2 L TSH Blood Type Blood Type Recheck Antibody Screen 09/25/17 09/25/17 09/25/17 10:43 10:43 18:24 CBC w Diff WBC RBC Hgb Hct MCV MCH MCHC RDW Plt Count MPV Neut % (Auto) Lymph % (Auto) [place] % (Auto) Eos % (Auto) Baso % (Auto) Neut # (Auto) Lymph # (Auto) [place] # (Auto) Eos # (Auto) Baso # (Auto) WBC Differential Seg Neuts % (Manual) Lymphocytes % (Manual) Abs Neuts (Manual) Smudge Cells Platelet Estimate Platelet Morphology PT INR APTT Sodium Potassium Chloride Carbon Dioxide Anion Gap BUN Creatinine Estimated GFR Random Glucose Lactic Acid 0.7 Calcium Total Bilirubin AST ALT Alkaline Phosphatase Ammonia 13 Troponin I Total Protein Albumin TSH Blood Type O Positive Blood Type Recheck Required Antibody Screen Negative 09/26/17 09/26/17 09/26/17 04:10 04:10 06:00 CBC w Diff WBC 153.7 H RBC 3.37 L Hgb 10.1 L Hct 31.1 L MCV 92.4 MCH 30.1 MCHC 32.6 RDW 16.4 Plt Count 163 MPV 10.7 Neut % (Auto) Lymph % (Auto) [place] % (Auto) Eos % (Auto) Baso % (Auto) Neut # (Auto) Lymph # (Auto) [place] # (Auto) Eos # (Auto) Baso # (Auto) WBC Differential Seg Neuts % (Manual) Lymphocytes % (Manual) Abs Neuts (Manual) Smudge Cells Platelet Estimate Platelet Morphology PT INR APTT Sodium 136 Potassium 3.5 Chloride 100 Carbon Dioxide 24.5 Anion Gap 12 BUN 13 Creatinine 0.99 Estimated GFR 75 L Random Glucose 94 Lactic Acid Calcium 8.5 Total Bilirubin 0.5 AST 51 H ALT 158 H Alkaline Phosphatase 269 H Ammonia Troponin I Total Protein 6.0 L D Albumin 2.8 L TSH 1.840 Cancelled Blood Type Blood Type Recheck Antibody Screen Imaging: ITS Impressions Chest X-Ray 09/25/17 00:00 CONCLUSION: Mild basilar opacity, probably atelectasis. Small right pleural effusion. Head CT 09/25/17 10:29 CONCLUSION: 1. Acute left-sided subdural hematoma with [id number] midline shift of 9 mm. Objective Remarks: GENERAL: Well-nourished, well-developed patient who is alert and conversant SKIN: Warm and dry. No petechiae HEAD: Atraumatic. Normocephalic. EYES: Pupils equal and round. No scleral icterus. No injection or drainage. ENT: No nasal bleeding or discharge. Mucous membranes pink and moist. NECK: Trachea midline. No JVD. CARDIOVASCULAR: Regular rate and rhythm. No murmurs rubs or gallops. RESPIRATORY: No accessory muscle use. Clear to auscultation. Breath sounds equal bilaterally. On room air. GASTROINTESTINAL: Abdomen soft, non-tender, nondistended. Bowel sounds present. MUSCULOSKELETAL: Extremities without clubbing, cyanosis, or edema. No obvious deformities. NEUROLOGICAL: Awake and alert. Knows he lives in [place]. Knows it is 2017 however could not give me the correct month and date. At times having difficulty recalling certain details of his medical history. No obvious cranial nerve deficits, no facial droop, normal tongue protrusion. Motor grossly within normal limits. Five out of 5 muscle strength in the arms and legs. Some fine motor deficits of right hand Normal speech. No pronator drift. Assessment and Plan - Assessment and Plan Plan: NEURO: Acute on subacute left subdural hematoma, 2.3 cm with 9 mm midline shift. Admission to [facility] with neuro monitoring Hold ibrutinib. Will not be a candidate for resuming this, will need alternate therapy for CLL as this likely contributed to SDH. Keppra 500 mg po bid. Plan for eventual SDH evacuation, though discussing operative timing in view of antiplatelet effect of ibrutinib. Oncology recommends platelet transfusion prior to surgery and to hold off surgery for possible for at least 72 hours after last dose of ibrutinib. Neurosurgery admitted, Dr. Rich RESP: On room air He is currently protecting his airway. Will intubate if loss of airway protection. CV: Hypertension Hyperlipidemia Hold statin for now, LFTs elevated. Labetalol prn for SBP >170 per NSG. GI: Transaminitis. Passed swallow screen. Regular diet Elevated LFT ?2ry CLL. Trend LFTs. Right upper quadrant ultrasound. FEN/RENAL: Mild Hyponatremia Hypokalemia Trend sodium daily. Hold HCTZ which may contribute to hyponatremia. 0.9 NaCL with 20 MEq KCL/L @ 100/hr. Voiding Replace electrolytes per electrolyte protocol. ID: Monitor for signs and symptoms of infection HEME: CLL - WBC 170k (per Dr. Gallagher this is expected effect of reinitiation of ibrutinib on 09/12) Coags and platelet count normal. Ibrutinib causes bleeding, T1/2 4-6 hours.. Causes platelet dysfunction (which may be irreversible for life of platelets) but appears mechanism of bleeding risk is not entirely clear and no reversal agent. Discussed with Dr. Gallagher who would recommend holding off on surgery if possible. I contacted Dr. Rich and will hold off on OR unless declines neurologically and it becomes unavoidable. Will transfuse with platelets preoperatively. Dr. Gallagher also indicates that alternate agent must be chosen in the future for CLL management. ENDO: Check TSH PROPH: SCDs for DVT prophylaxis. Pharmacology DVT prophylaxis contraindicated due to subdural. ACCESS: Peripheral IV providing adequate access at this time. Patient is critically ill with acute on subacute subdural hematoma which will require eventual operative evacuation. Requires close monitoring in ICU due to risk of loss of airway protection. CCT 30 minutes exclusive of separately billable procedures.
[2017-09-26] MEDS ORDERED: hydroCHLOROthiazide 25 MG Tablet PO SCH (09:00)
[2017-09-26] MEDS: Loratadine 10 MG Tablet PO SCH (09:33)
[2017-09-26] MEDS: levETIRAcetam 500 MG Tablet PO SCH ×2 (09:33→20:29)
[2017-09-26] MEDS: Allopurinol 300 MG Tablet PO SCH (09:34)
[2017-09-26] MEDS: Morphine Inj 4 MG/ML Vial IV.PUSH PRN ×2 (09:56→15:08)
--- NOTE | 2017-09-26 10:42 | US ---
EXAM DATE: 09/26/2017 10:08 AM EDT AGE/SEX: 67 years / Male INDICATIONS: Elevated lab values. CLINICAL DATA: This is the patient's initial encounter. Patient reports that signs and symptoms have been present for 2 days and indicates a pain score of 10/10. MEDICAL/SURGICAL HISTORY: Hypertension. Hypercholesterolemia. Leukemia. Gout. . Sinus surge ry. Cataract removal with prosthetic lens insertion. COMPARISON: No prior exams available for comparison. MEASUREMENTS: Liver:__ 22.5 cm. Common Bile Duct:__ 4mm. Right Kidney:__ cm. FINDINGS: Liver: Liver is enlarged with mild diffuse increase in echogenicity. Portal Vein: Hepatopedal flow seen in portal vein. Common Duct: No intraluminal mass or stone visualized. Gallbladder: There is bilateral thickening without gallstones or pericholecystic fluid. Pancreas: Not well visualized. Right Kidney: Normal echotexture and cortical thickness. No mass or hydronephrosis. Other: Spleen is enlarged measuring up to 17 cm. CONCLUSION: 1. Hepatosplenomegaly with mild increase in hepatic echogenicity. Differential considerations includ e hepatitis, hepatic steatosis or medical liver disease. 2. Diffuse gallbladder wall thickening. This finding is typically seen with chronic liver disease/hy poalbuminemia. Electronically signed by: Vasyl Griffiths MD 09/26/2017 10:41 AM EDT
[2017-09-26] MEDS: Senna/Docusate Sodium 8.6/50 MG Tablet PO SCH ×2 (12:10→20:29)
--- NOTE | 2017-09-26 12:40 | P.PNNS ---
Subjective Interval history: 09/26/17: Surgery placed on hold given his recent chemotherapy use that may affect platelet function. Pt has received platelet transfusion today. He complains of intermittent headaches. Had nausea earlier today. <Ibrahima Porras - Last Filed: 09/26/17 12:41> Physical Exam Vital signs: Vital Signs 09/25/17 19:27 09/25/17 20:00 09/25/17 21:00 Temperature 98.4 F 98.4 F Pulse Rate 89 87 71 Respiratory Rate 18 18 21 Blood Pressure 128/69 128/69 135/70 Pulse Oximetry 93 L 93 L 93 L 09/25/17 22:00 09/25/17 23:00 09/26/17 00:00 Temperature 98.9 F Pulse Rate 72 Respiratory Rate 18 17 20 Blood Pressure 141/80 H 130/71 137/76 Pulse Oximetry 94 L 96 96 09/26/17 01:00 09/26/17 02:00 09/26/17 03:00 Temperature Pulse Rate 68 69 66 Respiratory Rate 17 16 17 Blood Pressure 137/69 135/63 133/71 Pulse Oximetry 92 L 95 91 L 09/26/17 04:00 09/26/17 06:00 09/26/17 07:00 Temperature 98.4 F 98 F Pulse Rate 67 79 Respiratory Rate 21 21 20 Blood Pressure 129/70 149/83 H 134/76 Pulse Oximetry 95 09/26/17 08:00 09/26/17 09:00 09/26/17 09:26 Temperature 98 F Pulse Rate 72 Respiratory Rate 18 18 20 Blood Pressure 136/76 147/71 H 147/71 H Pulse Oximetry 09/26/17 09:29 Temperature 98 F Pulse Rate 71 Respiratory Rate 20 Blood Pressure 145/82 H Pulse Oximetry 98 Intake & Output 09/25/17 09/26/17 09/26/17 18:59 06:59 18:59 Intake Total 1480 / 1480 0 / 0 Output Total 520 / 520 520 / 520 Balance 960 / 960 -520 / -520 Weight 91.1 kg 91.3 kg Intake: IV 1000 / 1000 NS + KCl 20 mEq Inj 1,000 ML @ 1000 / 1000 100 mls/hr IV.CONT .Q10H [facility] Rx #:[id number] Oral 480 / 480 0 / 0 Intake (Blood Product) Amt 0 / 0 Plt Pheresis B Leukoreduced 0 / 0 Unit [id number] Plt Pheresis B Leukoreduced 0 / 0 Unit [id number] Output: Urine 520 / 520 520 / 520 Other: Date of Last Bowel Movement 09/24/17 09/24/17 Weight On Admission 90.9 kg - Constitutional no acute distress, cooperative, agitated (at times mild agitation.) - Routine HEENT Exam Head: Present: normocephalic Eye: Present: PERRL (pupils 3mm bilaterally reactive bilaterally.). Absent: conjunctival icterus - Routine Respiratory Exam Present: CTA bilaterally. Absent: respiratory distress, rhonchi, wheezes - Routine Cardiovascular Exam Present: RRR, S1, S2. Absent: murmur - Routine Abdominal Exam Present: soft, normoactive bowel sounds. Absent: tenderness, distended - Routine Extremities Exam Absent: cyanosis - Routine Skin Exam Present: intact, dry. Absent: cyanosis, erythema - Routine Neurological Exam Present: alert, oriented X3, motor deficit (mild right sided weakness.), moving all extremities, normal speech (mild expressive aphasia as well as some confusion.) - Detailed Neurological Exam: Coma Scale Eye Opening: Spontaneous Verbal Response: Oriented Motor Response: Obey commands Herb Coma Scale Total: 15 - Routine Psychiatric Exam Present: cooperative, agitated (at times mildly agitated.) <Ibrahima Porras - Last Filed: 09/26/17 12:41> Vital signs: Vital Signs 09/25/17 19:27 09/25/17 20:00 09/25/17 21:00 Temperature 98.4 F 98.4 F Pulse Rate 89 87 71 Respiratory Rate 18 18 21 Blood Pressure 128/69 128/69 135/70 Pulse Oximetry 93 L 93 L 93 L 09/25/17 22:00 09/25/17 23:00 09/26/17 00:00 Temperature 98.9 F Pulse Rate 72 Respiratory Rate 18 17 20 Blood Pressure 141/80 H 130/71 137/76 Pulse Oximetry 94 L 96 96 09/26/17 01:00 09/26/17 02:00 09/26/17 03:00 Temperature Pulse Rate 68 69 66 Respiratory Rate 17 16 17 Blood Pressure 137/69 135/63 133/71 Pulse Oximetry 92 L 95 91 L 09/26/17 04:00 09/26/17 06:00 09/26/17 07:00 Temperature 98.4 F 98 F Pulse Rate 67 79 Respiratory Rate 21 21 20 Blood Pressure 129/70 149/83 H 134/76 Pulse Oximetry 95 09/26/17 08:00 09/26/17 09:00 09/26/17 09:26 Temperature 98 F Pulse Rate 72 Respiratory Rate 18 18 20 Blood Pressure 136/76 147/71 H 147/71 H Pulse Oximetry 09/26/17 09:29 Temperature 98 F Pulse Rate 71 Respiratory Rate 20 Blood Pressure 145/82 H Pulse Oximetry 98 Intake & Output 09/25/17 09/26/17 09/26/17 18:59 06:59 18:59 Intake Total 1480 / 1480 0 / 0 Output Total 520 / 520 520 / 520 Balance 960 / 960 -520 / -520 Weight 91.1 kg 91.3 kg Intake: IV 1000 / 1000 NS + KCl 20 mEq Inj 1,000 ML @ 1000 / 1000 100 mls/hr IV.CONT .Q10H [facility] Rx #:[id number] Oral 480 / 480 0 / 0 Intake (Blood Product) Amt 0 / 0 Plt Pheresis B Leukoreduced 0 / 0 Unit [id number] Plt Pheresis B Leukoreduced 0 / 0 Unit [id number] Output: Urine 520 / 520 520 / 520 Other: Date of Last Bowel Movement 09/24/17 09/24/17 Weight On Admission 90.9 kg <See Rich - Last Filed: 09/26/17 13:37> Assessment and Plan - Assessment (1) Subdural hematoma Code(s): S06.5X9A - Traumatic subdural hemorrhage with loss of consciousness of unspecified duration, initial encounter Status: Acute (2) CLL (chronic lymphocytic leukemia) Code(s): C91.90 - Lymphoid leukemia, unspecified not having achieved remission Status: Acute (3) Bleeding in brain due to blood coagulation disorder Code(s): I60.9 - Nontraumatic subarachnoid hemorrhage, unspecified; D68.9 - Coagulation defect, unspecified Status: Acute - Plan The plan was for an emergent left craniotomy for subdural hemorrhage evacuation. Dr. Hernandez the telecasting engineer discussed the side effects of the chemotherapy medication Ibrutinib with rerecording mixer Dr. Gallagher and was informed that this can affect platelet function and he would prefer that we will hold off on surgery for now and his surgery was placed on hold. He got platelet transfusion this morning. We will continue to monitor his neurologic condition closely. Continue with current medical care. SCDs for DVT prophylaxis. GI prophylaxis. <Ibrahima Porras - Last Filed: 09/26/17 12:41> - Assessment (1) Subdural hematoma Code(s): S06.5X9A - Traumatic subdural hemorrhage with loss of consciousness of unspecified duration, initial encounter Status: Acute (2) CLL (chronic lymphocytic leukemia) Code(s): C91.90 - Lymphoid leukemia, unspecified not having achieved remission Status: Acute (3) Bleeding in brain due to blood coagulation disorder Code(s): I60.9 - Nontraumatic subarachnoid hemorrhage, unspecified; D68.9 - Coagulation defect, unspecified Status: Acute - Attending Attestation The exam, history, and the medical decision-making described in the above note were completed with the assistance of the mid-level provider. I reviewed and agree with the findings presented. I attest that I had a [id number] encounter with the patient on the same day, and personally performed and documented my assessment and findings in the medical record. <See Rich - Last Filed: 09/26/17 13:37>
--- NOTE | 2017-09-26 17:46 | ECG ---
Date Performed: 09/25/2017 Time Performed: 16:17:51 PTAGE: 67 years EKG: Sinus rhythm NONSPECIFIC ST & T-WAVE ABNORMALITY BORDERLINE ECG PREVIOUS TRACING : 06/27/2013 11.11 Since the previous tracing, no significant change noted DOCTOR: Nguyen Ly Interpretating Date/Time 09/26/2017 17:45:21
[2017-09-27] MEDS: Allopurinol 300 MG Tablet PO SCH (08:06)
[2017-09-27] MEDS: levETIRAcetam 500 MG Tablet PO SCH ×2 (08:06→20:12)
[2017-09-27] MEDS: Loratadine 10 MG Tablet PO SCH (08:06)
[2017-09-27] MEDS: Morphine Inj 4 MG/ML Vial IV.PUSH PRN ×2 (08:07→12:23)
[2017-09-27] MEDS: Senna/Docusate Sodium 8.6/50 MG Tablet PO SCH ×2 (08:12→20:12)
--- NOTE | 2017-09-27 09:59 | P.PNCC ---
Subjective Subjective Remarks/Hospital Course: 09/25: 67 yo WM with PMH of CLL (diagnosed 2007), HTN, HLD, gout who presented with 4 day history of headache. Today he had numbness and tingling on his right side and unsteady gait. CT brain demonstrates acute/subacute L subdural, 2.3 cm with 9 mm midline shift. He denies known trauma. He is not on anticoagulant however he has been treated for his CLL with ibrutinib. He states this was causing bruising so he held it for 30 days and resumed 09/12/17 at a lower dose. His last dose was the morning of 09/24. Review of medical literature indicates this drug is associated with spontaneous SDH and would place patient at risk for operative bleeding. Discussed with Dr. Gallagher and Dr. Rich regarding implications for operative timing. His oncologist is Dr. Minor at [facility] in [place]. 09/26: Awake, disoriented. Not in any acute distress. Having some headache. Following commands. Objective Vital Signs / I&O: Vital Signs 09/26/17 09:26 09/26/17 09:29 09/26/17 10:00 Temperature 98 F 98 F Pulse Rate 72 71 67 Respiratory Rate 20 20 18 Blood Pressure 147/71 H 145/82 H 144/71 H Pulse Oximetry 98 98 09/26/17 11:00 09/26/17 12:00 09/26/17 13:00 Temperature Pulse Rate 67 68 67 Respiratory Rate 20 18 20 Blood Pressure 151/70 H 162/74 H 159/77 H Pulse Oximetry 99 99 09/26/17 14:00 09/26/17 15:00 09/26/17 16:00 Temperature Pulse Rate 65 65 61 Respiratory Rate 18 20 18 Blood Pressure 149/80 H 163/80 H 149/73 H Pulse Oximetry 98 99 98 09/26/17 18:00 09/26/17 19:00 09/26/17 20:00 Temperature 98.5 F 98.6 F Pulse Rate 63 70 70 Respiratory Rate 20 17 17 Blood Pressure 151/84 H 151/74 H 142/74 H Pulse Oximetry 99 96 96 09/26/17 21:00 09/26/17 22:00 09/26/17 23:00 Temperature Pulse Rate 59 L 62 62 Respiratory Rate 15 16 19 Blood Pressure 141/73 H 149/80 H 138/65 Pulse Oximetry 100 98 97 09/27/17 00:00 09/27/17 00:01 09/27/17 01:00 Temperature 98.1 F Pulse Rate 62 67 Respiratory Rate 18 17 23 Blood Pressure 176/81 H 154/74 H Pulse Oximetry 99 97 09/27/17 02:00 09/27/17 03:00 09/27/17 04:00 Temperature 99.0 F Pulse Rate 56 L 58 L 61 Respiratory Rate 21 16 16 Blood Pressure 141/69 H 135/70 129/66 Pulse Oximetry 98 96 90 L 09/27/17 05:00 09/27/17 06:00 09/27/17 07:00 Temperature Pulse Rate 56 L 61 57 L Respiratory Rate 19 17 20 Blood Pressure 146/69 H 145/71 H 138/71 Pulse Oximetry 94 L 98 98 09/27/17 08:00 09/27/17 08:22 Temperature Pulse Rate 65 Respiratory Rate 20 21 Blood Pressure 143/73 H Pulse Oximetry 100 Intake & Output 09/26/17 09/27/17 09/27/17 18:59 06:59 18:59 Intake Total 0 / 0 2235 / 2235 1240 / 1240 Output Total 520 / 520 450 / 450 Balance -520 / -520 1785 / 1785 1240 / 1240 Weight 91.3 kg Intake: IV 1994 1000 / 1000 NS + KCl 20 mEq Inj 1,000 ML @ 1994 1000 / 1000 100 mls/hr IV.CONT .Q10H [facility] Rx #:[id number] Oral 0 / 0 240 / 240 240 / 240 Intake (Blood Product) Amt 0 / 0 Plt Pheresis B Leukoreduced 0 / 0 Unit [id number] Plt Pheresis B Leukoreduced 0 / 0 Unit [id number] Output: Urine 520 / 520 450 / 450 Other: Date of Last Bowel Movement 09/24/17 09/24/17 09/24/17 Result Diagrams: 09/26/17 04:10 09/26/17 04:10 Objective Remarks: GENERAL: Well-nourished, well-developed patient who is alert and conversant SKIN: Warm and dry. No petechiae HEAD: Atraumatic. Normocephalic. EYES: Pupils equal and round. No scleral icterus. No injection or drainage. ENT: No nasal bleeding or discharge. Mucous membranes pink and moist. NECK: Trachea midline. No JVD. CARDIOVASCULAR: Regular rate and rhythm. No murmurs rubs or gallops. RESPIRATORY: No accessory muscle use. Clear to auscultation. Breath sounds equal bilaterally. On room air. GASTROINTESTINAL: Abdomen soft, non-tender, nondistended. Bowel sounds present. MUSCULOSKELETAL: Extremities without clubbing, cyanosis, or edema. No obvious deformities. NEUROLOGICAL: Awake and alert. Knows he lives in [place]. Knows it is 2017 however could not give me the correct month and date. At times having difficulty recalling certain details of his medical history. No obvious cranial nerve deficits, no facial droop, normal tongue protrusion. Motor grossly within normal limits. Five out of 5 muscle strength in the arms and legs. Some fine motor deficits of right hand Normal speech. No pronator drift. Assessment and Plan - Assessment and Plan Plan: NEURO: Acute on subacute left subdural hematoma, 2.3 cm with 9 mm midline shift. Admission to [facility] with neuro monitoring Hold ibrutinib. Will not be a candidate for resuming this, will need alternate therapy for CLL as this likely contributed to SDH. Keppra 500 mg po bid. Plan for eventual SDH evacuation, though discussing operative timing in view of antiplatelet effect of ibrutinib. Oncology recommends platelet transfusion prior to surgery and to hold off surgery for possible for at least 72 hours after last dose of ibrutinib. Neurosurgery admitted, Dr. Rich RESP: On room air He is currently protecting his airway. Will intubate if loss of airway protection. CV: Hypertension Hyperlipidemia Hold statin for now, LFTs elevated. Labetalol prn for SBP >170 per NSG. GI: Transaminitis. Passed swallow screen. Regular diet Elevated LFT ?2ry CLL. Trend LFTs. Right upper quadrant ultrasound. FEN/RENAL: Mild Hyponatremia Hypokalemia Trend sodium daily. Hold HCTZ which may contribute to hyponatremia. 0.9 NaCL with 20 MEq KCL/L @ 100/hr. Voiding Replace electrolytes per electrolyte protocol. ID: Monitor for signs and symptoms of infection HEME: CLL - WBC 170k (per Dr. Gallagher this is expected effect of reinitiation of ibrutinib on 09/12) Coags and platelet count normal. Ibrutinib causes bleeding, T1/2 4-6 hours.. Causes platelet dysfunction (which may be irreversible for life of platelets) but appears mechanism of bleeding risk is not entirely clear and no reversal agent. Discussed with Dr. Gallagher who would recommend holding off on surgery if possible. I contacted Dr. Rich and will hold off on OR unless declines neurologically and it becomes unavoidable. Will transfuse with platelets preoperatively. Dr. Gallagher also indicates that alternate agent must be chosen in the future for CLL management. ENDO: Check TSH PROPH: SCDs for DVT prophylaxis. Pharmacology DVT prophylaxis contraindicated due to subdural. ACCESS: Peripheral IV providing adequate access at this time. Patient is critically ill with acute on subacute subdural hematoma which will require eventual operative evacuation. Requires close monitoring in ICU due to risk of loss of airway protection. CCT 30 minutes exclusive of separately billable procedures.
--- NOTE | 2017-09-27 10:55 | P.PNCC ---
Subjective Subjective Remarks/Hospital Course: 09/25: 67 yo WM with PMH of CLL (diagnosed 2007), HTN, HLD, gout who presented with 4 day history of headache. Today he had numbness and tingling on his right side and unsteady gait. CT brain demonstrates acute/subacute L subdural, 2.3 cm with 9 mm midline shift. He denies known trauma. He is not on anticoagulant however he has been treated for his CLL with ibrutinib. He states this was causing bruising so he held it for 30 days and resumed 09/12/17 at a lower dose. His last dose was the morning of 09/24. Review of medical literature indicates this drug is associated with spontaneous SDH and would place patient at risk for operative bleeding. Discussed with Dr. Gallagher and Dr. Rich regarding implications for operative timing. His oncologist is Dr. Minor at [facility] in [place]. 09/26: Awake, disoriented. Not in any acute distress. Having some headache. Following commands. 09/27: Awake and alert. Does not know month and date. Otherwise following commands. Not in any acute distress Objective Vital Signs / I&O: Vital Signs 09/26/17 11:00 09/26/17 12:00 09/26/17 13:00 Temperature Pulse Rate 67 68 67 Respiratory Rate 20 18 20 Blood Pressure 151/70 H 162/74 H 159/77 H Pulse Oximetry 99 99 09/26/17 14:00 09/26/17 15:00 09/26/17 16:00 Temperature Pulse Rate 65 65 61 Respiratory Rate 18 20 18 Blood Pressure 149/80 H 163/80 H 149/73 H Pulse Oximetry 98 99 98 09/26/17 18:00 09/26/17 19:00 09/26/17 20:00 Temperature 98.5 F 98.6 F Pulse Rate 63 70 70 Respiratory Rate 20 17 17 Blood Pressure 151/84 H 151/74 H 142/74 H Pulse Oximetry 99 96 96 09/26/17 21:00 09/26/17 22:00 09/26/17 23:00 Temperature Pulse Rate 59 L 62 62 Respiratory Rate 15 16 19 Blood Pressure 141/73 H 149/80 H 138/65 Pulse Oximetry 100 98 97 09/27/17 00:00 09/27/17 00:01 09/27/17 01:00 Temperature 98.1 F Pulse Rate 62 67 Respiratory Rate 18 17 23 Blood Pressure 176/81 H 154/74 H Pulse Oximetry 99 97 09/27/17 02:00 09/27/17 03:00 09/27/17 04:00 Temperature 99.0 F Pulse Rate 56 L 58 L 61 Respiratory Rate 21 16 16 Blood Pressure 141/69 H 135/70 129/66 Pulse Oximetry 98 96 90 L 09/27/17 05:00 09/27/17 06:00 09/27/17 07:00 Temperature Pulse Rate 56 L 61 57 L Respiratory Rate 19 17 20 Blood Pressure 146/69 H 145/71 H 138/71 Pulse Oximetry 94 L 98 98 09/27/17 08:00 09/27/17 08:22 09/27/17 10:13 Temperature Pulse Rate 65 Respiratory Rate 20 21 20 Blood Pressure 143/73 H Pulse Oximetry 100 Intake & Output 09/26/17 09/27/17 09/27/17 18:59 06:59 18:59 Intake Total 0 / 0 2235 / 2235 1240 / 1240 Output Total 520 / 520 450 / 450 Balance -520 / -520 1785 / 1785 1240 / 1240 Weight 91.3 kg Intake: IV 1994 1000 / 1000 NS + KCl 20 mEq Inj 1,000 ML @ 1994 1000 / 1000 100 mls/hr IV.CONT .Q10H [facility] Rx #:[id number] Oral 0 / 0 240 / 240 240 / 240 Intake (Blood Product) Amt 0 / 0 Plt Pheresis B Leukoreduced 0 / 0 Unit [id number] Plt Pheresis B Leukoreduced 0 / 0 Unit [id number] Output: Urine 520 / 520 450 / 450 Other: Date of Last Bowel Movement 09/24/17 09/24/17 09/24/17 Result Diagrams: 09/26/17 04:10 09/26/17 04:10 Objective Remarks: GENERAL: Well-nourished, well-developed patient who is alert and conversant SKIN: Warm and dry. No petechiae HEAD: Atraumatic. Normocephalic. EYES: Pupils equal and round. No scleral icterus. No injection or drainage. ENT: No nasal bleeding or discharge. Mucous membranes pink and moist. NECK: Trachea midline. No JVD. CARDIOVASCULAR: Regular rate and rhythm. No murmurs rubs or gallops. RESPIRATORY: No accessory muscle use. Clear to auscultation. Breath sounds equal bilaterally. On room air. GASTROINTESTINAL: Abdomen soft, non-tender, nondistended. Bowel sounds present. MUSCULOSKELETAL: Extremities without clubbing, cyanosis, or edema. No obvious deformities. NEUROLOGICAL: Awake and alert. Knows he lives in [place]. Knows it is 2018 however could not give me the correct month and date. At times having difficulty recalling certain details of his medical history. No obvious cranial nerve deficits, no facial droop, normal tongue protrusion. Motor grossly within normal limits. Five out of 5 muscle strength in the arms and legs. Some fine motor deficits of right hand Normal speech. No pronator drift. Assessment and Plan - Assessment and Plan Plan: NEURO: Acute on subacute left subdural hematoma, 2.3 cm with 9 mm midline shift. Admission to [facility] with neuro monitoring Hold ibrutinib. Will not be a candidate for resuming this, will need alternate therapy for CLL as this likely contributed to SDH. Keppra 500 mg po bid. Plan for eventual SDH evacuation, though discussing operative timing in view of antiplatelet effect of ibrutinib. Oncology recommends platelet transfusion prior to surgery and to hold off surgery for possible for at least 72 hours after last dose of ibrutinib. Neurosurgery admitted, Dr. Rich RESP: On room air He is currently protecting his airway. Will intubate if loss of airway protection. CV: Hypertension Hyperlipidemia Hold statin for now, LFTs elevated. Labetalol prn for SBP >170 per NSG. GI: Transaminitis. Passed swallow screen. Regular diet Elevated LFT ?2ry CLL. Trend LFTs. Right upper quadrant ultrasound. FEN/RENAL: Mild Hyponatremia Hypokalemia Trend sodium daily. Hold HCTZ which may contribute to hyponatremia. 0.9 NaCL with 20 MEq KCL/L @ 100/hr. Voiding Replace electrolytes per electrolyte protocol. ID: Monitor for signs and symptoms of infection HEME: CLL - WBC 170k (per Dr. Gallagher this is expected effect of reinitiation of ibrutinib on 09/12) Coags and platelet count normal. Ibrutinib causes bleeding, T1/2 4-6 hours.. Causes platelet dysfunction (which may be irreversible for life of platelets) but appears mechanism of bleeding risk is not entirely clear and no reversal agent. Discussed with Dr. Gallagher who would recommend holding off on surgery if possible. I contacted Dr. Rich and will hold off on OR unless declines neurologically and it becomes unavoidable. Will transfuse with platelets preoperatively. Dr. Gallagher also indicates that alternate agent must be chosen in the future for CLL management. ENDO: Check TSH PROPH: SCDs for DVT prophylaxis. Pharmacology DVT prophylaxis contraindicated due to subdural. ACCESS: Peripheral IV providing adequate access at this time. Patient is critically ill with acute on subacute subdural hematoma which will require eventual operative evacuation. Requires close monitoring in ICU due to risk of loss of airway protection.
--- NOTE | 2017-09-27 11:07 | P.PNNS ---
Subjective Interval history: Patient reports mild headache. Denies any other problems Physical Exam Vital signs: Vital Signs 09/26/17 12:00 09/26/17 13:00 09/26/17 14:00 Temperature Pulse Rate 68 67 65 Respiratory Rate 18 20 18 Blood Pressure 162/74 H 159/77 H 149/80 H Pulse Oximetry 99 99 98 09/26/17 15:00 09/26/17 16:00 09/26/17 18:00 Temperature Pulse Rate 65 61 63 Respiratory Rate 20 18 20 Blood Pressure 163/80 H 149/73 H 151/84 H Pulse Oximetry 99 98 99 09/26/17 19:00 09/26/17 20:00 09/26/17 21:00 Temperature 98.5 F 98.6 F Pulse Rate 70 70 59 L Respiratory Rate 17 17 15 Blood Pressure 151/74 H 142/74 H 141/73 H Pulse Oximetry 96 96 100 09/26/17 22:00 09/26/17 23:00 09/27/17 00:00 Temperature 98.1 F Pulse Rate 62 62 62 Respiratory Rate 16 19 18 Blood Pressure 149/80 H 138/65 176/81 H Pulse Oximetry 98 97 99 09/27/17 00:01 09/27/17 01:00 09/27/17 02:00 Temperature Pulse Rate 67 56 L Respiratory Rate 17 23 21 Blood Pressure 154/74 H 141/69 H Pulse Oximetry 97 98 09/27/17 03:00 09/27/17 04:00 09/27/17 05:00 Temperature 99.0 F Pulse Rate 58 L 61 56 L Respiratory Rate 16 16 19 Blood Pressure 135/70 129/66 146/69 H Pulse Oximetry 96 90 L 94 L 09/27/17 06:00 09/27/17 07:00 09/27/17 08:00 Temperature Pulse Rate 61 57 L 65 Respiratory Rate 17 20 20 Blood Pressure 145/71 H 138/71 143/73 H Pulse Oximetry 98 98 100 09/27/17 08:22 09/27/17 09:00 09/27/17 10:00 Temperature Pulse Rate 60 68 Respiratory Rate 21 20 18 Blood Pressure 124/60 120/57 L Pulse Oximetry 96 97 09/27/17 10:13 Temperature Pulse Rate Respiratory Rate 20 Blood Pressure Pulse Oximetry Intake & Output 09/26/17 09/27/17 09/27/17 18:59 06:59 18:59 Intake Total 0 / 0 2235 / 2235 1240 / 1240 Output Total 520 / 520 450 / 450 Balance -520 / -520 1785 / 1785 1240 / 1240 Weight 91.3 kg Intake: IV 1994 1000 / 1000 NS + KCl 20 mEq Inj 1,000 ML @ 1994 1000 / 1000 100 mls/hr IV.CONT .Q10H [facility] Rx #:[id number] Oral 0 / 0 240 / 240 240 / 240 Intake (Blood Product) Amt 0 / 0 Plt Pheresis B Leukoreduced 0 / 0 Unit [id number] Plt Pheresis B Leukoreduced 0 / 0 Unit [id number] Output: Urine 520 / 520 450 / 450 Other: Date of Last Bowel Movement 09/24/17 09/24/17 09/24/17 Narrative: Patient alert and awake. Follows commands well. Moves all extremities well. Previous CT reviewed Assessment and Plan - Assessment (1) Subdural hematoma Code(s): S06.5X9A - Traumatic subdural hemorrhage with loss of consciousness of unspecified duration, initial encounter Status: Acute (2) CLL (chronic lymphocytic leukemia) Code(s): C91.90 - Lymphoid leukemia, unspecified not having achieved remission Status: Acute (3) Bleeding in brain due to blood coagulation disorder Code(s): I60.9 - Nontraumatic subarachnoid hemorrhage, unspecified; D68.9 - Coagulation defect, unspecified Status: Acute - Plan Patient appears stable clinically. Is on neurological observation in intensive care unit due to acute and chronic subdural hematoma. Surgery not possible at the present time due to possible surgical bleeding due to chemotherapeutic agent. We will continue to observe the patient in intensive care unit and make decision concerning surgery in the next few days.
[2017-09-28] MEDS: Allopurinol 300 MG Tablet PO SCH (08:32)
[2017-09-28] MEDS: Senna/Docusate Sodium 8.6/50 MG Tablet PO SCH ×2 (08:32→21:38)
[2017-09-28] MEDS: levETIRAcetam 500 MG Tablet PO SCH ×2 (08:32→21:38)
[2017-09-28] MEDS: Loratadine 10 MG Tablet PO SCH (08:32)
--- NOTE | 2017-09-28 12:28 | P.PNNS ---
Subjective Interval history: No new complaints other than mild headache Physical Exam Vital signs: Vital Signs 09/27/17 14:00 09/27/17 15:00 09/27/17 16:00 Temperature Pulse Rate 70 63 66 Respiratory Rate 20 18 20 Blood Pressure 119/70 120/88 127/89 Pulse Oximetry 98 99 98 09/27/17 17:20 09/27/17 18:00 09/27/17 19:00 Temperature 98.1 F Pulse Rate 67 59 L 70 Respiratory Rate 20 23 Blood Pressure 155/74 H 142/79 H 163/77 H Pulse Oximetry 99 99 97 09/27/17 20:00 09/27/17 21:00 09/27/17 22:00 Temperature 98.1 F Pulse Rate 70 65 63 Respiratory Rate 23 20 18 Blood Pressure 163/77 H 156/74 H 175/78 H Pulse Oximetry 98 94 L 09/27/17 23:00 09/28/17 00:00 09/28/17 01:00 Temperature 98.4 F Pulse Rate 71 55 L Respiratory Rate 17 15 Blood Pressure 157/76 H 134/64 130/75 Pulse Oximetry 98 96 97 09/28/17 02:00 09/28/17 03:00 09/28/17 04:00 Temperature 98.5 F Pulse Rate 62 66 60 Respiratory Rate 24 19 20 Blood Pressure 147/74 H 168/74 H 154/71 H Pulse Oximetry 96 98 09/28/17 05:00 09/28/17 06:00 09/28/17 09:54 Temperature 99 F Pulse Rate 66 58 L Respiratory Rate 23 20 18 Blood Pressure 165/76 H 138/67 Pulse Oximetry 96 98 Intake & Output 09/27/17 09/28/17 09/28/17 18:59 06:59 18:59 Intake Total 2240 / 2240 1240 / 1240 Output Total 220 / 220 Balance 2240 / 2240 1020 / 1020 Weight 91.3 kg Intake: IV 1999 1000 / 1000 NS + KCl 20 mEq Inj 1,000 ML @ 1999 1000 / 1000 100 mls/hr IV.CONT .Q10H [facility] Rx #:[id number] Oral 240 / 240 240 / 240 Output: Urine 220 / 220 Other: Date of Last Bowel Movement 09/24/17 09/24/17 Narrative: Alert and awake follows commands Moves all extremities well Wound is clean Assessment and Plan - Assessment (1) Subdural hematoma Code(s): S06.5X9A - Traumatic subdural hemorrhage with loss of consciousness of unspecified duration, initial encounter Status: Acute (2) CLL (chronic lymphocytic leukemia) Code(s): C91.90 - Lymphoid leukemia, unspecified not having achieved remission Status: Acute (3) Bleeding in brain due to blood coagulation disorder Code(s): I60.9 - Nontraumatic subarachnoid hemorrhage, unspecified; D68.9 - Coagulation defect, unspecified Status: Acute - Plan Patient appears stable clinically. Is on neurological observation in intensive care unit due to acute and chronic subdural hematoma. Surgery not possible at the present time due to possible surgical bleeding due to chemotherapeutic agent. We will continue to observe the patient in intensive care unit and make decision concerning surgery in the next few days.
--- NOTE | 2017-09-28 15:20 | P.PNCC ---
Subjective Subjective Remarks/Hospital Course: 67 yo WM with PMH of CLL (diagnosed 2007), HTN, HLD, gout who presented with 4 day history of headache. Today he had numbness and tingling on his right side and unsteady gait. CT brain demonstrates acute/subacute L subdural, 2.3 cm with 9 mm midline shift. He denies known trauma. He is not on anticoagulant however he has been treated for his CLL with ibrutinib. He states this was causing bruising so he held it for 30 days and resumed 09/12/17 at a lower dose. His last dose was the morning of 09/24. Review of medical literature indicates this drug is associated with spontaneous SDH and would place patient at risk for operative bleeding. Discussed with Dr. Gallagher and Dr. Rich regarding implications for operative timing. His oncologist is Dr. Minor at [facility] in [place]. 09/26: Awake, disoriented. Not in any acute distress. Having some headache. Following commands. 09/27: Awake and alert. Does not know month and date. Otherwise following commands. Not in any acute distress SUBJECTIVE: 09/28: Afebrile. Complaining of mild headache. No focal neurological deficits. Remains somewhat confused but follows general commands. Objective Vital Signs / I&O: Vital Signs 09/27/17 16:00 09/27/17 17:20 09/27/17 18:00 Temperature Pulse Rate 66 67 59 L Respiratory Rate 20 20 Blood Pressure 127/89 155/74 H 142/79 H Pulse Oximetry 98 99 99 09/27/17 19:00 09/27/17 20:00 09/27/17 21:00 Temperature 98.1 F 98.1 F Pulse Rate 70 70 65 Respiratory Rate 23 23 20 Blood Pressure 163/77 H 163/77 H 156/74 H Pulse Oximetry 97 98 09/27/17 22:00 09/27/17 23:00 09/28/17 00:00 Temperature 98.4 F Pulse Rate 63 71 55 L Respiratory Rate 18 17 Blood Pressure 175/78 H 157/76 H 134/64 Pulse Oximetry 94 L 98 96 09/28/17 01:00 09/28/17 02:00 09/28/17 03:00 Temperature Pulse Rate 62 66 Respiratory Rate 15 24 19 Blood Pressure 130/75 147/74 H 168/74 H Pulse Oximetry 97 96 98 09/28/17 04:00 09/28/17 05:00 09/28/17 06:00 Temperature 98.5 F 99 F Pulse Rate 60 66 58 L Respiratory Rate 20 23 20 Blood Pressure 154/71 H 165/76 H 138/67 Pulse Oximetry 96 98 09/28/17 09:54 Temperature Pulse Rate Respiratory Rate 18 Blood Pressure Pulse Oximetry Intake & Output 09/27/17 09/28/17 09/28/17 18:59 06:59 18:59 Intake Total 2240 / 2240 1240 / 1240 Output Total 220 / 220 Balance 2240 / 2240 1020 / 1020 Weight 91.3 kg Intake: IV 1999 / 1999 1000 / 1000 NS + KCl 20 mEq Inj 1,000 ML @ 1999 / 1999 1000 / 1000 100 mls/hr IV.CONT .Q10H [facility] Rx #:[id number] Oral 240 / 240 240 / 240 Output: Urine 220 / 220 Other: Date of Last Bowel Movement 09/24/17 09/24/17 Result Diagrams: 09/26/17 04:10 09/26/17 04:10 Imaging: ITS Impressions Chest X-Ray 09/25/17 00:00 CONCLUSION: Mild basilar opacity, probably atelectasis. Small right pleural effusion. Head CT 09/25/17 10:29 CONCLUSION: 1. Acute left-sided subdural hematoma with [id number] midline shift of 9 mm. Liver Ultrasound 09/26/17 00:00 CONCLUSION: 1. Hepatosplenomegaly with mild increase in hepatic echogenicity. Differential considerations include hepatitis, hepatic steatosis or medical liver disease. 2. Diffuse gallbladder wall thickening. This finding is typically seen with chronic liver disease/hypoalbuminemia. Objective Remarks: GENERAL: 67-year-old well-developed patient who is alert and conversant and in no acute distress SKIN: Warm and dry. No petechiae HEAD: Atraumatic. Normocephalic. EYES: Pupils equal and round about 3 mm bilaterally. No scleral icterus. No injection or drainage. ENT: No nasal bleeding or discharge. Mucous membranes pink and moist. NECK: Trachea midline. No JVD. CARDIOVASCULAR: Regular rate and rhythm. S1, S2 predose for without murmur RESPIRATORY: No accessory muscle use. Clear to auscultation. Breath sounds equal bilaterally. On room air. GASTROINTESTINAL: Abdomen soft, non-tender, nondistended. Bowel sounds present. MUSCULOSKELETAL: Extremities without significant peripheral edema. No obvious deformities. NEUROLOGICAL: Awake and alert. Weaned to person place and year. At times having difficulty recalling certain details of his medical history. No obvious cranial nerve deficits, no facial droop, normal tongue protrusion. Motor grossly within normal limits. Five out of 5 muscle strength in the arms and legs. Normal speech. No pronator drift. Assessment and Plan - Assessment and Plan Plan: NEURO/PSYCH: Acute on subacute left subdural hematoma, 2.3 cm with 9 mm midline shift. Allergic rhinitis Admission to [facility] with neuro monitoring Hold ibrutinib. Will not be a candidate for resuming this, will need alternate therapy for CLL as this likely contributed to SDH. Levetiracetam 500 mg po bid. Acetaminophen 650 mg every 4 hours. Fever Hydrocodone/acetaminophen 12/25 5 with acute flares. Pain 1 through 5 Morphine sulfate 2 milligrams every 2 hours as needed pain 6 - 10 Neurosurgery admitted, Dr. Rich Continue loratadine 10 mg daily for rhinitis Plan CT brain in a.m. 09/29 RESP: On room air Nasal cannula to maintain saturations greater or equal to 92% Incentive spirometry while awake Portable chest x-ray in a.m. CV: Hypertension Hyperlipidemia Hold simvastatin 40 mg daily for now, LFTs elevated. Labetalol prn for SBP >170 per NSG. Currently normal saline with 20 mEq KCl 100 cc an hour Check EKG GI: Elevated transaminases Hepatomegaly Splenomegaly Hypoalbuminemia Decreased total protein Regular diet Elevated LFT ?2ry CLL. Trend LFTs. Right upper quadrant ultrasound revealed gallbladder wall thickening. Hepatosplenic megaly. Hepatitis panel and CPK ordered. Docusate sodium/senna 1 tablet twice daily for bowel regimen Pantoprazole 40 mg daily for bowel regimen FEN/RENAL: Mild Hyponatremia Hypokalemia Trend sodium daily. Hold hydrochlorothiazide which may contribute to hyponatremia. Normal saline with 20 mEq KCL/Litre @ 100cc/hr. Replace electrolytes as clinically indicated. ID: Monitor for signs and symptoms of infection HEME: CLL - WBC 170k (per Dr. Gallagher this is expected effect of reinitiation of ibrutinib on 09/12) Normocytic anemia Coags and platelet count normal. Dr. Gallagher also indicates that alternate agent must be chosen in the future for CLL management. Holding ibrutinib Continue allopurinol 300 mg daily for TLS ENDO: Sliding scale insulin to maintain euglycemia if indicated TSH - 1.84 PROPH: SCDs for DVT prophylaxis. Pharmacology DVT prophylaxis contraindicated due to subdural. ACCESS: Peripheral IV providing adequate access at this time. Level 2 follow-up
[2017-09-29] MEDS: Labetalol HCl Inj 100 MG/20 ML Vial IV.PUSH PRN (02:58)
--- NOTE | 2017-09-29 05:12 | CT ---
EXAM DATE: 09/29/2017 4:48 AM EDT AGE/SEX: 67 years / Male INDICATIONS: Follow up subdural. CLINICAL DATA: This is the patient's subsequent encounter. Patient reports that signs and symptoms h ave been present for 3 days and indicates a pain score of 5/10. MEDICAL/SURGICAL HISTORY: None. None. RADIATION DOSE: 66.34 CTDI (mGy) COMPARISON: [facility], CT HEAD W/O CONTRAST, 09/25/2017. . TECHNIQUE: CT of the head without contrast. Using automated exposure control and adjustment of the mA and/or kV according to patient size, radiation dose was kept as low as reasonably achievable to ob tain optimal diagnostic quality images. DICOM format image data is available electronically for revi ew and comparison. FINDINGS: Left-sided subdural hematoma with mixed density is again identified. It measures 2.5 cm in thickness on image #26 compared to 2.3 cm on a similar image on the prior study. Left to right midline shift me asures 11 mm compared to 9 mm on the prior study. No new hemorrhage identified. Partial opacification of the ethmoid and maxillary sinuses again seen. CONCLUSION: Left-sided mixed density subdural hematoma measures slightly larger than on the comparison study. Lef t to right midline shift also measures slightly greater than on the comparison study. Electronically signed by: Armin Simmons MD 09/29/2017 5:10 AM EDT
[2017-09-29 06:04] LABS: Baso # (Auto) 0.1 th/mm3 (0.0-0.2); Baso % (Auto) 0.3 % (0.0-2.0); Eos # (Auto) 0.2 th/mm3 (0.0-0.4); Eos % (Auto) 0.4 % (0.0-4.0); Hematocrit 31.9 % (39.0-51.0); Hemoglobin 10.4 gm/dL (13.0-17.0); Lymph % (Auto) 86.8 % (9.0-44.0); Mean Corpuscular HGB Conc 32.6 % (32.0-36.0); Mean Corpuscular Hemoglobin 30.3 pg (27.0-34.0); Mean Corpuscular Volume 92.8 fL (80.0-100.0); Mean Platelet Volume 9.5 fL (7.0-11.0); Mono # (Auto) 1.3 th/mm3 (0.0-0.9); Mono % (Auto) 2.4 % (0.0-8.0); Neut # (Auto) 5.7 th/mm3 (1.8-7.7); Neut % (Auto) 10.1 % (16.0-70.0); Platelet Count 189 th/mm3 (150-450); Red Blood Count 3.44 mil/mm3 (4.50-5.90); Red Cell Distribution Width 16.1 % (11.6-17.2); White Blood Count 56.4 th/mm3 (4.0-11.0)
[2017-09-29 06:20] LABS: Activated Partial Thrombo Time 29.6 sec (24.3-30.1); Prothrombin Time 10.6 sec (9.8-11.6)
[2017-09-29 06:22] LABS: Alanine Aminotransferase 57 U/L (12-78); Albumin 2.8 g/dL (3.4-5.0); Anion Gap 11 meq/L (5-15); Aspartate Aminotransferase 11 U/L (15-37); Blood Urea Nitrogen 14 mg/dL (7-18); Calcium 8.8 mg/dL (8.5-10.1); Carbon Dioxide 22.3 meq/L (21.0-32.0); Chloride 105 meq/L (98-107); Glomerular Filtration Rate 69 mL/min (>89); Glucose,Random 78 mg/dL (74-106); Magnesium 1.7 mg/dL (1.5-2.5); Potassium 3.7 meq/L (3.5-5.1); Sodium 138 meq/L (136-145); Uric Acid 4.1 mg/dl (2.6-7.2)
[2017-09-29 06:24] LABS: Phosphorus 3.4 mg/dL (2.5-4.9)
[2017-09-29 06:26] LABS: Alkaline Phosphatase 261 U/L (45-117); Lactate Dehydrogenase 120 U/L (87-241)
[2017-09-29 06:33] LABS: Creatine Kinase 20 U/L (39-308)
[2017-09-29 07:11] LABS: Hepatitis A IgM Antibody Nonreactive (Nonreactive); Hepatitits B Surface Antigen Nonreactive (Nonreactive)
[2017-09-29 09:07] LABS: Monocytes 1 % (0-8)
[2017-09-29 09:08] LABS: Lymphocytes 84 % (9-44)
[2017-09-29 09:09] LABS: Platelet Estimate Normal (Normal); Platelet Morphology Normal (Normal); Smudge Cells Present
--- NOTE | 2017-09-29 09:49 | P.PNCC ---
Subjective Subjective Remarks/Hospital Course: 67 yo WM with PMH of CLL (diagnosed 2007), HTN, HLD, gout who presented with 4 day history of headache. Today he had numbness and tingling on his right side and unsteady gait. CT brain demonstrates acute/subacute L subdural, 2.3 cm with 9 mm midline shift. He denies known trauma. He is not on anticoagulant however he has been treated for his CLL with ibrutinib. He states this was causing bruising so he held it for 30 days and resumed 09/12/17 at a lower dose. His last dose was the morning of 09/24. Review of medical literature indicates this drug is associated with spontaneous SDH and would place patient at risk for operative bleeding. Discussed with Dr. Gallagher and Dr. Rich regarding implications for operative timing. His oncologist is Dr. Minor at [facility] in [place]. 09/26: Awake, disoriented. Not in any acute distress. Having some headache. Following commands. 09/27: Awake and alert. Does not know month and date. Otherwise following commands. Not in any acute distress 09/28: Afebrile. Complaining of mild headache. No focal neurological deficits. Remains somewhat confused but follows general commands. SUBJECTIVE: 09/29: Afebrile. Complains of mild headache and requesting for pain medication. Remains somewhat confused but follows all commands. CT brain is slightly worse today, however patient's appears stable from a neurological standpoint. Objective Vital Signs / I&O: Vital Signs 09/28/17 09:54 09/28/17 10:00 09/28/17 12:00 Temperature 98.6 F 98.4 F Pulse Rate 66 59 L Respiratory Rate 18 20 19 Blood Pressure 168/79 H 151/73 H Pulse Oximetry 99 97 09/28/17 14:00 09/28/17 16:00 09/28/17 18:00 Temperature 98.4 F 98.4 F 98.4 F Pulse Rate 71 59 L 74 Respiratory Rate 21 19 27 H Blood Pressure 151/73 H 151/73 H 158/74 H Pulse Oximetry 98 97 99 09/28/17 20:00 09/28/17 22:00 09/28/17 22:48 Temperature 98.5 F Pulse Rate 59 L 61 Respiratory Rate 20 24 18 Blood Pressure 157/86 H 146/68 H Pulse Oximetry 99 95 09/29/17 00:00 09/29/17 01:23 09/29/17 02:00 Temperature 98.4 F Pulse Rate 59 L 58 L Respiratory Rate 17 18 Blood Pressure 158/79 H 180/81 H Pulse Oximetry 97 98 98 09/29/17 04:00 09/29/17 06:00 Temperature 98.3 F 98.5 F Pulse Rate 61 62 Respiratory Rate 16 21 Blood Pressure 156/78 H 177/79 H Pulse Oximetry 97 Intake & Output 09/28/17 09/29/17 09/29/17 18:59 06:59 18:59 Intake Total 1000 / 1000 1240 / 1240 Output Total 350 / 350 Balance 1000 / 1000 890 / 890 Weight 93 kg Intake: IV 1000 / 1000 1000 / 1000 NS + KCl 20 mEq Inj 1,000 ML @ 1000 / 1000 1000 / 1000 100 mls/hr IV.CONT .Q10H Y[facility]O Rx #:[id number] Oral 240 / 240 Output: Urine 350 / 350 Other: Date of Last Bowel Movement 09/24/17 09/24/17 Result Diagrams: 09/29/17 05:05 09/29/17 05:05 Imaging: ITS Impressions Chest X-Ray 09/25/17 00:00 CONCLUSION: Mild basilar opacity, probably atelectasis. Small right pleural effusion. Head CT 09/25/17 10:29 CONCLUSION: 1. Acute left-sided subdural hematoma with [id number] midline shift of 9 mm. Liver Ultrasound 09/26/17 00:00 CONCLUSION: 1. Hepatosplenomegaly with mild increase in hepatic echogenicity. Differential considerations include hepatitis, hepatic steatosis or medical liver disease. 2. Diffuse gallbladder wall thickening. This finding is typically seen with chronic liver disease/hypoalbuminemia. Head CT 09/29/17 00:01 CONCLUSION: Left-sided mixed density subdural hematoma measures slightly larger than on the comparison study. Left to right midline shift also measures slightly greater than on the comparison study. Objective Remarks: GENERAL: 67-year-old well-developed patient who is alert and conversant and in no acute distress SKIN: Warm and dry. No petechiae HEAD: Atraumatic. Normocephalic. EYES: Pupils equal and round about 3 mm bilaterally. No scleral icterus. No injection or drainage. ENT: No nasal bleeding or discharge. Mucous membranes pink and moist. NECK: Trachea midline. No JVD. CARDIOVASCULAR: Regular rate and rhythm. S1, S2 predose for without murmur RESPIRATORY: No accessory muscle use. Clear to auscultation. Breath sounds equal bilaterally. On room air. GASTROINTESTINAL: Abdomen soft, non-tender, nondistended. Bowel sounds present. MUSCULOSKELETAL: Extremities without significant peripheral edema. No obvious deformities. NEUROLOGICAL: Awake and alert. Weaned to person place and year. At times having difficulty recalling certain details of his medical history. No obvious cranial nerve deficits, no facial droop, normal tongue protrusion. Motor grossly within normal limits. Five out of 5 muscle strength in the arms and legs. Normal speech. No pronator drift. Assessment and Plan - Assessment and Plan Plan: NEURO/PSYCH: Acute on subacute left subdural hematoma, 2.5 cm with 11 mm midline shift. Allergic rhinitis Continue with neurochecks Hold ibrutinib. Will not be a candidate for resuming this, will need alternate therapy for CLL as this likely contributed to acute left subdural hematoma. Levetiracetam 500 mg po bid seizure prophylaxis. Acetaminophen 650 mg every 4 hours. Fever Hydrocodone/acetaminophen 10/ 5 with acute flares. Pain 1 through 5 Morphine sulfate 2 milligrams every 2 hours as needed pain 6 - 10 Neurosurgery admitted, Dr. Rich Continue loratadine 10 mg daily for rhinitis CT brain in a.m. 09/29 revealed increase of left subdural hematoma 2.3-2.5 cm. Increase 9-11 mm midline shift. RESP: On room air Albuterol/ipratropium aerosols every 6 hours while awake with albuterol aerosols every 2 hours as needed for dyspnea Nasal cannula to maintain saturations greater or equal to 92% Incentive spirometry while awake Portable chest x-ray in a.m. 09/30 CV: Hypertension Hyperlipidemia Hold simvastatin 40 mg daily for now, LFTs elevated. Labetalol prn for SBP >170 per NSG. Currently normal saline with 20 mEq KCl 100 cc an hour discontinued due to wheezing and will give 1 dose of furosemide 20 mg IV 1 GI: Elevated transaminases -resolving Hepatomegaly Splenomegaly Hypoalbuminemia Decreased total protein Regular diet Elevated LFT ? CLL. Trend LFTs. Right upper quadrant ultrasound revealed gallbladder wall thickening. Hepatosplenic megaly. Hepatitis panel pending. CPK 20 Docusate sodium/senna 1 tablet twice daily for bowel regimen Pantoprazole 40 mg daily for bowel regimen FEN/RENAL: Mild Hyponatremia Hypokalemia Trend sodium daily. Hold hydrochlorothiazide which may contribute to hyponatremia. Normal saline with 20 mEq KCL/Litre @ 100cc/hr will be discontinued today. Replace electrolytes as clinically indicated. ID: Monitor for signs and symptoms of infection HEME: CLL - WBC 56k (per Dr. Gallagher this is expected effect of reinitiation of ibrutinib on 09/12). Leukocyte predominant Normocytic anemia Coags and platelet count normal. Epinephrine platelet function within normal limits. Dr. Gallagher also indicates that alternate agent must be chosen in the future for CLL management. Holding ibrutinib Continue allopurinol 300 mg daily for TLS Uric acid pending. LDH normal. Peripheral smear ordered with results pending ENDO: Sliding scale insulin to maintain euglycemia if indicated TSH - 1.84 PROPH: SCDs for DVT prophylaxis. Pharmacology DVT prophylaxis contraindicated due to subdural. ACCESS: Peripheral IV providing adequate access at this time. Level 2 follow-up
[2017-09-29] MEDS ORDERED: Magnesium Sulfate Inj 2 GM in Sodium Chlor 0.9% Inj 96 ML IV.SIG ONE (09:50)
[2017-09-29] MEDS: Loratadine 10 MG Tablet PO SCH (10:20)
[2017-09-29] MEDS: levETIRAcetam 500 MG Tablet PO SCH ×2 (10:20→20:40)
[2017-09-29] MEDS: Senna/Docusate Sodium 8.6/50 MG Tablet PO SCH ×2 (10:21→20:40)
[2017-09-29] MEDS: Allopurinol 300 MG Tablet PO SCH (10:21)
[2017-09-29] MEDS: Mag Sulf 1 gm/100 ml Premix 100 ML IV.SIG SCH ×2 (10:21→12:59)
--- NOTE | 2017-09-29 17:04 | P.PNNS ---
Subjective Interval history: Offers no new complaints Physical Exam Vital signs: Vital Signs 09/28/17 18:00 09/28/17 20:00 09/28/17 22:00 Temperature 98.4 F 98.5 F Pulse Rate 74 59 L 61 Respiratory Rate 27 H 20 24 Blood Pressure 158/74 H 157/86 H 146/68 H Pulse Oximetry 99 99 95 09/28/17 22:48 09/29/17 00:00 09/29/17 01:23 Temperature 98.4 F Pulse Rate 59 L Respiratory Rate 18 17 Blood Pressure 158/79 H Pulse Oximetry 97 98 09/29/17 02:00 09/29/17 04:00 09/29/17 06:00 Temperature 98.3 F 98.5 F Pulse Rate 58 L 61 62 Respiratory Rate 18 16 21 Blood Pressure 180/81 H 156/78 H 177/79 H Pulse Oximetry 98 97 09/29/17 08:00 09/29/17 12:00 09/29/17 12:27 Temperature 98.4 F 98.4 F Pulse Rate 64 72 Respiratory Rate 26 H 21 Blood Pressure 159/74 H 138/71 Pulse Oximetry 64 L 95 09/29/17 12:28 Temperature Pulse Rate 71 Respiratory Rate 20 Blood Pressure Pulse Oximetry Intake & Output 09/28/17 09/29/17 09/29/17 18:59 06:59 18:59 Intake Total 1000 / 1000 1240 / 1240 100 / 100 Output Total 350 / 350 Balance 1000 / 1000 890 / 890 100 / 100 Weight 93 kg Intake: IV 1000 / 1000 1000 / 1000 100 / 100 NS + KCl 20 mEq Inj 1,000 ML @ 1000 / 1000 1000 / 1000 100 mls/hr IV.CONT .Q10H [facility] Rx #:[id number] Magnesium Sulfate 1 gm/D5W 100 100 / 100 ml Premix 100 ML @ 100 mls/hr IV.SIG Q1H YAYO Rx#:[id number] Oral 240 / 240 Output: Urine 350 / 350 Other: Date of Last Bowel Movement 09/24/17 09/24/17 09/29/17 Narrative: Alert and awake follows commands Moves all extremities Assessment and Plan - Assessment (1) Subdural hematoma Code(s): S06.5X9A - Traumatic subdural hemorrhage with loss of consciousness of unspecified duration, initial encounter Status: Acute (2) CLL (chronic lymphocytic leukemia) Code(s): C91.90 - Lymphoid leukemia, unspecified not having achieved remission Status: Acute (3) Bleeding in brain due to blood coagulation disorder Code(s): I60.9 - Nontraumatic subarachnoid hemorrhage, unspecified; D68.9 - Coagulation defect, unspecified Status: Acute - Plan Patient appears stable clinically. Is on neurological observation in intensive care unit due to acute and chronic subdural hematoma. Surgery not possible at the present time due to possible surgical bleeding due to chemotherapeutic agent. We will continue to observe the patient in intensive care unit and make decision concerning surgery in the next few days.
[2017-09-30 04:18] LABS: Hematocrit 32.1 % (39.0-51.0); Hemoglobin 10.6 gm/dL (13.0-17.0); Mean Corpuscular Hemoglobin 30.4 pg (27.0-34.0); Mean Corpuscular Volume 92.1 fL (80.0-100.0); Platelet Count 216 th/mm3 (150-450); Red Blood Count 3.48 mil/mm3 (4.50-5.90); Red Cell Distribution Width 16.5 % (11.6-17.2); White Blood Count 61.6 th/mm3 (4.0-11.0)
[2017-09-30 04:35] LABS: Calcium 8.5 mg/dL (8.5-10.1); Carbon Dioxide 23.1 meq/L (21.0-32.0); Magnesium 1.9 mg/dL (1.5-2.5); Phosphorus 4.3 mg/dL (2.5-4.9); Potassium 3.6 meq/L (3.5-5.1); Uric Acid 4.6 mg/dl (2.6-7.2)
--- NOTE | 2017-09-30 04:47 | XR ---
EXAM DATE: 09/30/2017 4:18 AM EDT AGE/SEX: 67 years / Male INDICATIONS: Shortness of breath. CLINICAL DATA: This is the patient's subsequent encounter. Patient reports that signs and symptoms h ave been present for 4 - 6 days and indicates a pain score of Nonresponsive. MEDICAL/SURGICAL HISTORY: None. None. COMPARISON: C, CHEST 1V SINGLE AP, 09/25/2017. . FINDINGS: Improved aeration at the lung bases. Cardiomediastinal contours are within normal limits. Bony thorax is intact. CONCLUSION: 1. Improved aeration at the lung bases. Electronically signed by: Vasyl Griffiths MD 09/30/2017 4:46 AM EDT
[2017-09-30 05:28] LABS: Blast Cells 10 % (0-0); Lymphocytes 81 % (9-44)
[2017-09-30 05:34] LABS: Smudge Cells Present
--- NOTE | 2017-09-30 08:40 | P.PNCC ---
Subjective Subjective Remarks/Hospital Course: 67 yo WM with PMH of CLL (diagnosed 2007), HTN, HLD, gout who presented with 4 day history of headache. Today he had numbness and tingling on his right side and unsteady gait. CT brain demonstrates acute/subacute L subdural, 2.3 cm with 9 mm midline shift. He denies known trauma. He is not on anticoagulant however he has been treated for his CLL with ibrutinib. He states this was causing bruising so he held it for 30 days and resumed 09/12/17 at a lower dose. His last dose was the morning of 09/24. Review of medical literature indicates this drug is associated with spontaneous SDH and would place patient at risk for operative bleeding. Discussed with Dr. Gallagher and Dr. Rich regarding implications for operative timing. His oncologist is Dr. Minor at [facility] in [place]. 09/26: Awake, disoriented. Not in any acute distress. Having some headache. Following commands. 09/27: Awake and alert. Does not know month and date. Otherwise following commands. Not in any acute distress 09/28: Afebrile. Complaining of mild headache. No focal neurological deficits. Remains somewhat confused but follows general commands. SUBJECTIVE: 09/29: Afebrile. Complains of mild headache and requesting for pain medication. Remains somewhat confused but follows all commands. CT brain is slightly worse today, however patient's appears stable from a neurological standpoint. 09/30: Chronic lymphocytic leukemia and predictable underline coagulopathy. Large left subdural hematoma of varying age. Remains symptomatic by headache and confusion. Increased risk of reaccumulation if surgically drained. Objective Vital Signs / I&O: Vital Signs 09/29/17 12:00 09/29/17 12:27 09/29/17 12:28 Temperature 98.4 F Pulse Rate 72 71 Respiratory Rate 21 20 Blood Pressure 138/71 Pulse Oximetry 95 09/29/17 16:00 09/29/17 18:09 09/29/17 20:00 Temperature 98.2 F 98.2 F Pulse Rate 78 78 Respiratory Rate 21 20 24 Blood Pressure 168/80 H 134/63 Pulse Oximetry 98 99 09/29/17 20:17 09/29/17 22:00 09/30/17 00:00 Temperature 98.4 F Pulse Rate 72 75 74 Respiratory Rate 16 21 24 Blood Pressure 150/72 H 149/70 H Pulse Oximetry 96 97 09/30/17 02:00 09/30/17 04:00 09/30/17 06:00 Temperature 98.7 F Pulse Rate 64 73 66 Respiratory Rate 28 H 22 17 Blood Pressure 139/67 155/94 H 151/72 H Pulse Oximetry 97 98 98 Intake & Output 09/29/17 09/30/17 09/30/17 18:59 06:59 18:59 Intake Total 1979 / 1979 340 / 340 Output Total 1200 / 1200 Balance 780 / 780 340 / 340 Weight 91 kg Intake: IV 1100 / 1100 100 / 100 NS + KCl 20 mEq Inj 1,000 ML @ 1000 / 1000 100 mls/hr IV.CONT .Q10H [facility]O Rx #:[id number] Magnesium Sulfate 1 gm/D5W 100 100 / 100 100 / 100 ml Premix 100 ML @ 100 mls/hr IV.SIG Q1H YAYO Rx#:[id number] Oral 880 / 880 240 / 240 Output: Urine 1200 / 1200 Other: Date of Last Bowel Movement 09/29/17 09/29/17 Result Diagrams: 09/30/17 03:20 09/30/17 03:20 Objective Remarks: GENERAL: 67-year-old well-developed patient who is alert and confused. SKIN: Warm and dry. No petechiae or rash. HEAD: Atraumatic. Normocephalic. EYES: Pupils equal and round about 2 mm bilaterally, reactive to light.. No scleral icterus. No injection or drainage. ENT: No nasal bleeding or discharge. Mucous membranes pink and moist. NECK: Trachea midline. Airway widely patent and no obstructive noises. CARDIOVASCULAR: Regular rate and rhythm. S1, S2 predose for without murmur. No JVD. RESPIRATORY: No accessory muscle use. Clear to auscultation. Breath sounds equal bilaterally. Comfortable respiratory pattern. GASTROINTESTINAL: Abdomen soft, non-tender, nondistended. Bowel sounds present. No guarding. MUSCULOSKELETAL: Extremities without significant peripheral edema. No obvious deformities. Warm, well-perfused. NEUROLOGICAL: Awake and alert, intermittently confused. Oriented to person place and year. At times having difficulty recalling certain details of his medical history. No obvious cranial nerve deficits, no facial droop, normal tongue protrusion. Motor grossly within normal limits. Five out of 5 muscle strength in the arms and legs. Normal speech. No pronator drift. Assessment and Plan - Problem List (1) Subdural hematoma Code(s): S06.5X9A - Traumatic subdural hemorrhage with loss of consciousness of unspecified duration, initial encounter Status: Acute (2) CLL (chronic lymphocytic leukemia) Code(s): C91.90 - Lymphoid leukemia, unspecified not having achieved remission Status: Chronic (3) Bleeding in brain due to blood coagulation disorder Code(s): I60.9 - Nontraumatic subarachnoid hemorrhage, unspecified; D68.9 - Coagulation defect, unspecified Status: Acute (4) HTN (hypertension) Code(s): I10 - Essential (primary) hypertension Status: Chronic (5) HLD (hyperlipidemia) Code(s): E78.5 - Hyperlipidemia, unspecified Status: Chronic (6) Transaminitis Code(s): R74.0 - Nonspecific elevation of levels of transaminase and lactic acid dehydrogenase [LDH] Status: Chronic (7) Hypokalemia Code(s): E87.6 - Hypokalemia Status: Acute (8) Hyponatremia Code(s): E87.1 - Hypo-osmolality and hyponatremia Status: Chronic - Assessment and Plan Plan: NEURO: Acute on subacute left subdural hematoma, 2.3 cm with 9 mm midline shift. Admission to [facility] with neuro monitoring Hold ibrutinib. Will not be a candidate for resuming this, will need alternate therapy for CLL as this likely contributed to SDH. Keppra 500 mg po bid. Plan for eventual SDH evacuation, though discussing operative timing in view of antiplatelet effect of ibrutinib. Neurosurgery admitted, Dr. Rich Midline shift is increased by about 2 mm. RESP: On room air He is currently protecting his airway. Will intubate if loss of airway protection. CV: Hypertension Hyperlipidemia Hold statin for now, LFTs elevated. Labetalol prn for SBP >170 per NSG. GI: Transaminitis. Passed swallow screen. Regular diet Elevated LFT ?2ry CLL. Trend LFTs. Right upper quadrant ultrasound. FEN/RENAL: Mild Hyponatremia Hypokalemia Trend sodium daily. Hold HCTZ which may contribute to hyponatremia. 0.9 NaCL with 20 MEq KCL/L @ 100/hr. Voiding Replace electrolytes per electrolyte protocol. ID: Monitor for signs and symptoms of infection HEME: CLL - WBC 170k (per Dr. Gallagher this is expected effect of reinitiation of ibrutinib on 09/12) Coags and platelet count normal. Ibrutinib causes bleeding, T1/2 4-6 hours.. Causes platelet dysfunction (which may be irreversible for life of platelets) but appears mechanism of bleeding risk is not entirely clear and no reversal agent. Discussed with Dr. Gallagher who would recommend holding off on surgery if possible. I contacted Dr. Rich and will hold off on OR today unless declines neurologically and it becomes unavoidable. Will transfuse with platelets preoperatively. Dr. Gallagher also indicates that alternate agent must be chosen in the future for CLL management. ENDO: Check TSH PROPH: SCDs for DVT prophylaxis. Pharmacology DVT prophylaxis contraindicated due to subdural. ACCESS: Peripheral IV providing adequate access at this time. Overall impression: Patient is critically ill with symptomatic acute on subacute subdural hematoma which will require eventual operative evacuation. Requires close monitoring in ICU due to risk of loss of airway protection. He remains at increased risk for problematic intraoperative bleeding and reaccumulation after surgery.
[2017-09-30] MEDS: Senna/Docusate Sodium 8.6/50 MG Tablet PO SCH ×2 (08:56→20:35)
[2017-09-30] MEDS: Loratadine 10 MG Tablet PO SCH (08:56)
[2017-09-30] MEDS: Allopurinol 300 MG Tablet PO SCH (08:56)
[2017-09-30] MEDS: levETIRAcetam 500 MG Tablet PO SCH ×2 (08:56→20:36)
--- NOTE | 2017-09-30 16:07 | P.PNNS ---
Subjective Interval history: 09/30: patient seen this morning during rounds. Sitting up in chair, awake, following, appearing mildly confused but oriented to name, place, and year. <Carlee Freeman - Last Filed: 09/30/17 16:39> Physical Exam Vital signs: Vital Signs 09/29/17 18:09 09/29/17 20:00 09/29/17 20:17 Temperature 98.2 F Pulse Rate 78 72 Respiratory Rate 20 24 16 Blood Pressure 134/63 Pulse Oximetry 99 96 09/29/17 22:00 09/30/17 00:00 09/30/17 02:00 Temperature 98.4 F Pulse Rate 75 74 64 Respiratory Rate 21 24 28 H Blood Pressure 150/72 H 149/70 H 139/67 Pulse Oximetry 97 97 09/30/17 04:00 09/30/17 06:00 09/30/17 08:00 Temperature 98.7 F 98 F Pulse Rate 73 66 58 L Respiratory Rate 22 17 19 Blood Pressure 155/94 H 151/72 H 142/65 H Pulse Oximetry 98 98 98 09/30/17 08:46 09/30/17 11:15 09/30/17 12:00 Temperature 97.6 F 97.6 F Pulse Rate 58 L 72 72 Respiratory Rate 17 19 19 Blood Pressure 143/67 H 143/67 H Pulse Oximetry 98 96 09/30/17 12:38 Temperature Pulse Rate 77 Respiratory Rate 21 Blood Pressure Pulse Oximetry Intake & Output 09/29/17 09/30/17 09/30/17 18:59 06:59 18:59 Intake Total 1979 / 1979 340 / 340 Output Total 1200 / 1200 Balance 780 / 780 340 / 340 Weight 91 kg Intake: IV 1100 / 1100 100 / 100 NS + KCl 20 mEq Inj 1,000 ML @ 1000 / 1000 100 mls/hr IV.CONT .Q10H [facility] Rx #:[id number] Magnesium Sulfate 1 gm/D5W 100 100 / 100 100 / 100 ml Premix 100 ML @ 100 mls/hr IV.SIG Q1H [facility] Rx#:[id number] Oral 880 / 880 240 / 240 Output: Urine 1200 / 1200 Other: Date of Last Bowel Movement 09/29/17 09/29/17 Narrative: General: Mr. Horn appearing comfortable sitting up in chair, in no obvious distress during examination. Neuro: Awake, alert and oriented to person, place, and time. Followed simple commands. Cranial nerve examination: pupils to be equal, round, and reactive to light. Extra-ocular movements are intact with normal convergence. Facial motor are normal and symmetrical. HEENT: Normocephalic, atraumatic. Gross hearing intact bilaterally. Nonicteric sclera. Neck: No massess, no JVD. Trachea midline. Soft, supple, no meningismus or nuchal rigidity. Musculoskeletal: No peripheral edema. No obvious deformities to extremities. No clubbing. Moves all four extremities with right side weakness. Lungs: clear to auscultate bilaterally, nonlabored breathing on room air, no wheezing, no accessory muscle use. Heart: regular rate and rhythm Skin: warm and dry, no cyanosis or erythema. <Darshan Koo - Last Filed: 09/30/17 16:17> Vital signs: Vital Signs 09/29/17 18:09 09/29/17 20:00 09/29/17 20:17 Temperature 98.2 F Pulse Rate 78 72 Respiratory Rate 20 24 16 Blood Pressure 134/63 Pulse Oximetry 99 96 09/29/17 22:00 09/30/17 00:00 09/30/17 02:00 Temperature 98.4 F Pulse Rate 75 74 64 Respiratory Rate 21 24 28 H Blood Pressure 150/72 H 149/70 H 139/67 Pulse Oximetry 97 97 09/30/17 04:00 09/30/17 06:00 09/30/17 08:00 Temperature 98.7 F 98 F Pulse Rate 73 66 58 L Respiratory Rate 22 17 19 Blood Pressure 155/94 H 151/72 H 142/65 H Pulse Oximetry 98 98 98 09/30/17 08:46 09/30/17 11:15 09/30/17 12:00 Temperature 97.6 F 97.6 F Pulse Rate 58 L 72 72 Respiratory Rate 17 19 19 Blood Pressure 143/67 H 143/67 H Pulse Oximetry 98 96 09/30/17 12:38 Temperature Pulse Rate 77 Respiratory Rate 21 Blood Pressure Pulse Oximetry Intake & Output 09/29/17 09/30/17 09/30/17 18:59 06:59 18:59 Intake Total 1979 / 1979 340 / 340 Output Total 1200 / 1200 Balance 780 / 780 340 / 340 Weight 91 kg Intake: IV 1100 / 1100 100 / 100 NS + KCl 20 mEq Inj 1,000 ML @ 1000 / 1000 100 mls/hr IV.CONT .Q10H Y[facility]O Rx #:[id number] Magnesium Sulfate 1 gm/D5W 100 100 / 100 100 / 100 ml Premix 100 ML @ 100 mls/hr IV.SIG Q1H Y[facility]O Rx#:[id number] Oral 880 / 880 240 / 240 Output: Urine 1200 / 1200 Other: Date of Last Bowel Movement 09/29/17 09/29/17 Narrative: General: Mr. Horn appearing comfortable sitting up in chair, in no obvious distress during examination. Neuro: Awake, alert and oriented to person, place, and time. Followed simple commands. Cranial nerve examination: pupils to be equal, round, and reactive to light. Extra-ocular movements are intact with normal convergence. Facial motor are normal and symmetrical. HEENT: Normocephalic, atraumatic. Gross hearing intact bilaterally. Nonicteric sclera. Neck: No massess, no JVD. Trachea midline. Soft, supple, no meningismus or nuchal rigidity. Musculoskeletal: No peripheral edema. No obvious deformities to extremities. No clubbing. Moves all four extremities with right side weakness. Lungs: clear to auscultate bilaterally, nonlabored breathing on room air, no wheezing, no accessory muscle use. Heart: regular rate and rhythm Skin: warm and dry, no cyanosis or erythema. <Carlee Freeman - Last Filed: 09/30/17 16:39> Assessment and Plan - Assessment (1) Subdural hematoma Code(s): S06.5X9A - Traumatic subdural hemorrhage with loss of consciousness of unspecified duration, initial encounter Status: Acute (2) CLL (chronic lymphocytic leukemia) Code(s): C91.90 - Lymphoid leukemia, unspecified not having achieved remission Status: Chronic (3) Bleeding in brain due to blood coagulation disorder Code(s): I60.9 - Nontraumatic subarachnoid hemorrhage, unspecified; D68.9 - Coagulation defect, unspecified Status: Acute - Attending Attestation The exam, history, and the medical decision-making described in the above note were completed with the assistance of the mid-level provider. I reviewed and agree with the findings presented. I attest that I had a [id number] encounter with the patient on the same day, and personally performed and documented my assessment and findings in the medical record. <Darshan Koo - Last Filed: 09/30/17 16:17> - Plan cont neuro checks in ISC awaiting surgical clearance from med oncology critical care following SCDs and TEDs for dvt prophylaxis, chem proph CI due to ICH Protonix for stress ulcer prophylaxis discussed with family <Carlee Freeman - Last Filed: 09/30/17 16:39>
--- NOTE | 2017-09-30 20:54 | P.PNONC ---
Subjective Interval history: Resting in bed. Objective Vital Signs/Intake & Output: Vital Signs 09/29/17 22:00 09/30/17 00:00 09/30/17 02:00 Temperature 98.4 F Pulse Rate 75 74 64 Respiratory Rate 21 24 28 H Blood Pressure 150/72 H 149/70 H 139/67 Pulse Oximetry 97 97 09/30/17 04:00 09/30/17 06:00 09/30/17 08:00 Temperature 98.7 F 98 F Pulse Rate 73 66 58 L Respiratory Rate 22 17 19 Blood Pressure 155/94 H 151/72 H 142/65 H Pulse Oximetry 98 98 98 09/30/17 08:46 09/30/17 11:15 09/30/17 12:00 Temperature 97.6 F 97.6 F Pulse Rate 58 L 72 72 Respiratory Rate 17 19 19 Blood Pressure 143/67 H 143/67 H Pulse Oximetry 98 96 09/30/17 12:38 09/30/17 14:00 09/30/17 16:00 Temperature 97.6 F 97.6 F Pulse Rate 77 76 72 Respiratory Rate 21 23 19 Blood Pressure 143/67 H 143/67 H Pulse Oximetry 94 L Intake & Output 09/30/17 09/30/17 10/01/17 06:59 18:59 06:59 Intake Total 340 / 340 Balance 340 / 340 Weight 91 kg Intake: IV 100 / 100 Magnesium Sulfate 1 gm/D5W 100 100 / 100 ml Premix 100 ML @ 100 mls/hr IV.SIG Q1H HAL Rx#:[id number] Oral 240 / 240 Other: Date of Last Bowel Movement 09/29/17 09/29/17 Result Diagrams: 09/30/17 03:20 09/30/17 03:20 Laboratory Results: Laboratory Results - last 24 hr 09/29/17 09/30/17 09/30/17 05:05 03:20 03:20 WBC 61.6 H RBC 3.48 L Hgb 10.6 L Hct 32.1 L MCV 92.1 MCH 30.4 MCHC 33.0 RDW 16.5 Plt Count 216 MPV 9.0 Prelim Diff (Auto) Slide review pending WBC Differential Manual diff final Seg Neuts % (Manual) 9 L Lymphocytes % (Manual) 81 H Blast Cells % (Manual) 10 H Abs Neuts (Manual) 5.5 Differential Comment . Smudge Cells Present H Sodium 140 Potassium 3.6 Chloride 106 Carbon Dioxide 23.1 Anion Gap 11 BUN 13 Creatinine 1.06 Estimated GFR 69 L Random Glucose 85 Uric Acid 4.6 Calcium 8.5 Phosphorus 4.3 Magnesium 1.9 Misc Test Result Cancelled Misc Test Comment Cancelled Imaging Studies: Impressions Chest X-Ray 09/30/17 06:00 CONCLUSION: 1. Improved aeration at the lung bases. Medications: Active Medications Generic Name Dose Route Start Last Admin Trade Name Freq PRN Reason Stop Dose Admin Hydrocodone Bitart/Acetaminophen 1 tab 09/25/17 14:27 09/30/17 20:35 [place] 10/325 PO 1 tab Q4H PRN Administration Pain Scale 1 To 5 Albuterol 1 ampul 09/29/17 14:00 09/30/17 12:37 Duoneb Neb (Hal) NEB 1 ampul Q6HR WHILE AWAKE NEB HAL Administration Allopurinol 300 mg 09/26/17 09:00 09/30/17 08:56 Zyloprim PO 300 mg DAILY HAL Administration Labetalol HCl 10 mg 09/25/17 14:27 09/29/17 02:58 Trandate Inj IV.PUSH 10 mg Q1H PRN Administration SYS BP GREATER THAN 170 MMHG Levetiracetam 500 mg 09/25/17 21:00 09/30/17 20:36 Keppra PO 500 mg BID HAL Administration Loratadine 10 mg 09/26/17 09:00 09/30/17 08:56 Claritin PO 10 mg DAILY HAL Administration Morphine Sulfate 2 mg 09/25/17 14:27 09/27/17 12:23 Morphine Inj IV.PUSH 2 mg Q2H PRN Administration PAIN SCALE 6 TO 10 Pantoprazole Sodium 40 mg 09/26/17 09:00 09/30/17 08:56 Protonix PO 40 mg DAILY HAL Administration Senna/Docusate Sodium 1 tab 09/25/17 21:00 09/30/17 20:35 Kiya-Colace PO 1 tab BID HAL Administration Objective Remarks: GENERAL: Well-nourished, well-developed patient. SKIN: Warm and dry. HEAD: Normocephalic. EYES: No scleral icterus. No injection or drainage. NECK: Supple, trachea midline. No JVD or lymphadenopathy. LYMPHATIC: No adenopathy. CARDIOVASCULAR: Regular rate and rhythm without murmurs. RESPIRATORY: No accessory muscle use. GASTROINTESTINAL: Abdomen soft, non-tender, nondistended. EXTREMITIES: No cyanosis, or edema. MUSCULOSKELETAL: Adequate muscle tone. NEUROLOGICAL: No obvious focal deficit. Awake, alert Assessment/Plan - Plan 1. CLL: previously treated with ibrutinib. He follows with Dr. Minor at the [facility]. He sees Dr. Minor monthly. Per records last dose of medication taken on 09/24/2017 at 2 AM. Due to bleed he would not be a further candidate for this therapy. 2. Subdural hematoma: due to ibrutinib. On recent imaging concern for growth of subdural. NSGY team planning for surgery. per current recommendations ibrutinib should be held for 3-7 days prior to invasive procedure due to risk of periprocedural bleeding. (reference vielka, "how i treat CLL patients with ibrutinib, blood 2018, Hoda et al major bleeding with ibrutininb, blood 2016.) If NSGY team feels that he would need to have surgical evacuation of hematoma he would be cleared from oncology standpoint to proceed.
[2017-10-01] MEDS: Morphine Inj 4 MG/ML Vial IV.PUSH PRN (00:16)
[2017-10-01] MEDS ORDERED: Amiodarone Inj 150 MG in Dextrose 5% in Water Inj 97 ML IV.SIG ONE ×2 (03:30)
[2017-10-01] MEDS: Potassium Chlor 10 mEq Premix 10 MEQ/100 ML PIGGYBACK IV.SIG SCH ×2 (03:43→08:11)
[2017-10-01] MEDS ORDERED: SODIUM CHLOR 0.9% IV.SIG ONE (04:00)
[2017-10-01] MEDS ORDERED: SODIUM CHLOR 0.9% IV.SIG SCH (04:00)
[2017-10-01] MEDS ORDERED: MAGNESIUM SULFATE IV.SIG SCH (04:00)
[2017-10-01] MEDS ORDERED: AMIODARONE IV.SIG ONE (04:00)
[2017-10-01] MEDS: Mag Sulf 1 gm/100 ml Premix 100 ML IV.SIG SCH ×2 (04:03→08:11)
[2017-10-01] MEDS ORDERED: Metoprolol Inj 5 MG/5 ML Vial IV.PUSH ONE (04:34)
[2017-10-01] MEDS ORDERED: Digoxin Inj 500 MCG/2 ML Ampul IV.PUSH ONE (04:52)
[2017-10-01] MEDS: Amiodarone Inj 450 MG in Sodium Chlor 0.9% Inj 241 ML IV.CONT SCH ×2 (05:37→11:59)
[2017-10-01 05:40] LABS: Baso # (Auto) 0.3 th/mm3 (0.0-0.2); Baso % (Auto) 0.4 % (0.0-2.0); Eos # (Auto) 0.3 th/mm3 (0.0-0.4); Eos % (Auto) 0.4 % (0.0-4.0); Hematocrit 36.9 % (39.0-51.0); Lymph # (Auto) 62.8 th/mm3 (1.0-4.8); Lymph % (Auto) 85.1 % (9.0-44.0); Mean Corpuscular HGB Conc 32.4 % (32.0-36.0); Mean Corpuscular Hemoglobin 30.2 pg (27.0-34.0); Mean Corpuscular Volume 93.1 fL (80.0-100.0); Mean Platelet Volume 8.8 fL (7.0-11.0); Mono # (Auto) 0.8 th/mm3 (0.0-0.9); Mono % (Auto) 1.1 % (0.0-8.0); Neut # (Auto) 9.5 th/mm3 (1.8-7.7); Platelet Count 241 th/mm3 (150-450); Red Blood Count 3.96 mil/mm3 (4.50-5.90); Red Cell Distribution Width 16.1 % (11.6-17.2); White Blood Count 73.6 th/mm3 (4.0-11.0)
[2017-10-01 06:04] LABS: Anion Gap 13 meq/L (5-15); Blood Urea Nitrogen 15 mg/dL (7-18); Calcium 9.2 mg/dL (8.5-10.1); Carbon Dioxide 20.6 meq/L (21.0-32.0); Chloride 104 meq/L (98-107); Glomerular Filtration Rate 77 mL/min (>89); Glucose,Random 83 mg/dL (74-106); Potassium 3.9 meq/L (3.5-5.1); Sodium 138 meq/L (136-145)
[2017-10-01 06:14] LABS: Creatine Kinase 27 U/L (39-308)
[2017-10-01] MEDS: Metoprolol Tartrate 25 MG Tablet PO SCH ×4 (08:30→23:30)
[2017-10-01] MEDS: Allopurinol 300 MG Tablet PO SCH (08:30)
[2017-10-01] MEDS: Loratadine 10 MG Tablet PO SCH (08:30)
[2017-10-01] MEDS: levETIRAcetam 500 MG Tablet PO SCH ×2 (08:30→22:10)
[2017-10-01] MEDS: Senna/Docusate Sodium 8.6/50 MG Tablet PO SCH ×2 (08:30→22:10)
[2017-10-01 08:50] LABS: Blast Cells 5 % (0-0); Lymphocytes 85 % (9-44); Monocytes 1 % (0-8)
[2017-10-01 08:52] LABS: Acanthocytes 1+; Platelet Morphology Normal (Normal); Smudge Cells Present
--- NOTE | 2017-10-01 10:29 | P.PNCC ---
Subjective Subjective Remarks/Hospital Course: 67 yo WM with PMH of CLL (diagnosed 2007), HTN, HLD, gout who presented with 4 day history of headache. Today he had numbness and tingling on his right side and unsteady gait. CT brain demonstrates acute/subacute L subdural, 2.3 cm with 9 mm midline shift. He denies known trauma. He is not on anticoagulant however he has been treated for his CLL with ibrutinib. He states this was causing bruising so he held it for 30 days and resumed 09/12/17 at a lower dose. His last dose was the morning of 09/24. Review of medical literature indicates this drug is associated with spontaneous SDH and would place patient at risk for operative bleeding. Discussed with Dr. Gallagher and Dr. Rich regarding implications for operative timing. His oncologist is Dr. Minor at [facility] in [place]. 09/26: Awake, disoriented. Not in any acute distress. Having some headache. Following commands. 09/27: Awake and alert. Does not know month and date. Otherwise following commands. Not in any acute distress 09/28: Afebrile. Complaining of mild headache. No focal neurological deficits. Remains somewhat confused but follows general commands. SUBJECTIVE: 09/29: Afebrile. Complains of mild headache and requesting for pain medication. Remains somewhat confused but follows all commands. CT brain is slightly worse today, however patient's appears stable from a neurological standpoint. 09/30: Chronic lymphocytic leukemia and predictable underlying coagulopathy. Large left subdural hematoma of varying age. Remains symptomatic by headache and confusion. Increased risk of reaccumulation if surgically drained. 10/01: Patient is a little more lethargic this morning. He moves 4 extremities and he responds to questions but his general alertness is reduced. Additionally he went into new onset atrial fibrillation last night with a rapid ventricular response. He is now converted on an amiodarone drip and p.o. Lopressor. Cardiac enzymes have ruled out a myocardial injury. Objective Vital Signs / I&O: Vital Signs 09/30/17 11:15 09/30/17 12:00 09/30/17 12:38 Temperature 97.6 F 97.6 F Pulse Rate 72 72 77 Respiratory Rate 19 19 21 Blood Pressure 143/67 H 143/67 H Pulse Oximetry 96 09/30/17 14:00 09/30/17 16:00 09/30/17 20:00 Temperature 97.6 F 97.6 F 98.3 F Pulse Rate 76 72 75 Respiratory Rate 23 19 12 Blood Pressure 143/67 H 143/67 H 153/74 H Pulse Oximetry 94 L 95 09/30/17 21:15 09/30/17 21:37 10/01/17 00:00 Temperature 98.3 F 98.1 F Pulse Rate 88 81 75 Respiratory Rate 21 18 22 Blood Pressure 138/65 158/79 H Pulse Oximetry 94 L 96 98 10/01/17 01:15 10/01/17 04:00 10/01/17 05:15 Temperature 98.1 F 98.1 F 98.2 F Pulse Rate 73 160 H 128 H Respiratory Rate 22 20 20 Blood Pressure 167/80 H 99/67 L 124/68 Pulse Oximetry 98 97 10/01/17 08:00 10/01/17 09:10 Temperature 97.7 F Pulse Rate 73 65 Respiratory Rate 22 17 Blood Pressure 136/73 Pulse Oximetry 96 95 Intake & Output 09/30/17 10/01/17 10/01/17 18:59 06:59 18:59 Intake Total 962 / 962 Output Total 1900 / 1900 Balance -938 / -938 Weight 88.7 kg Intake: IV 302 / 302 Cordarone Inj 150 MG In NS Inj 100 / 100 97 ML @ 100 mls/hr IV.SIG ONCE ONE Rx#:[id number] Magnesium Sulfate Inj 1 GM In 102 / 102 NS Inj 100 ML @ 100 mls/hr IV. SIG NOW YAYO Rx#:[id number] KCl 10 mEq Premix Inj 10 meq In 100 / 100 100 ml @ 100 mls/hr IV.SIG Q1H YAYO Rx#:[id number] Oral 660 / 660 Output: Urine 1900 / 1900 Other: # Voids 1 Date of Last Bowel Movement 09/29/17 09/29/17 Result Diagrams: 10/01/17 05:00 10/01/17 05:00 Objective Remarks: GENERAL: 67-year-old well-developed patient who is more confused. SKIN: Warm and dry. No petechiae or rash. HEAD: Atraumatic. Normocephalic. EYES: Pupils equal and round about 2 mm bilaterally, reactive to light. No scleral icterus. No injection or drainage. ENT: No nasal bleeding or discharge. Mucous membranes pink and moist. NECK: Trachea midline. Airway widely patent and no obstructive noises. Swallows his own secretions without difficulty. CARDIOVASCULAR: Regular rate and rhythm. S1, S2 predose for without murmur. No JVD. RESPIRATORY: No accessory muscle use. Clear to auscultation. Breath sounds equal bilaterally. Comfortable respiratory pattern. GASTROINTESTINAL: Abdomen soft, non-tender, nondistended. Bowel sounds present. No guarding. MUSCULOSKELETAL: Extremities without significant peripheral edema. No obvious deformities. Warm, well-perfused. NEUROLOGICAL: Speech is slower and he is more confused confused. No obvious cranial nerve deficits, no facial droop, normal tongue protrusion, normal extraocular movements, normal shoulder shrug.. Motor grossly within normal limits. Five out of 5 muscle strength in the arms and legs. Normal speech. Assessment and Plan - Problem List (1) Subdural hematoma Code(s): S06.5X9A - Traumatic subdural hemorrhage with loss of consciousness of unspecified duration, initial encounter Status: Acute (2) CLL (chronic lymphocytic leukemia) Code(s): C91.90 - Lymphoid leukemia, unspecified not having achieved remission Status: Chronic (3) Bleeding in brain due to blood coagulation disorder Code(s): I60.9 - Nontraumatic subarachnoid hemorrhage, unspecified; D68.9 - Coagulation defect, unspecified Status: Acute (4) HTN (hypertension) Code(s): I10 - Essential (primary) hypertension Status: Chronic (5) HLD (hyperlipidemia) Code(s): E78.5 - Hyperlipidemia, unspecified Status: Chronic (6) Transaminitis Code(s): R74.0 - Nonspecific elevation of levels of transaminase and lactic acid dehydrogenase [LDH] Status: Chronic (7) Hypokalemia Code(s): E87.6 - Hypokalemia Status: Acute (8) Hyponatremia Code(s): E87.1 - Hypo-osmolality and hyponatremia Status: Chronic - Assessment and Plan Plan: NEURO: Acute on subacute left subdural hematoma, 2.3 cm with 9 mm midline shift. Admission to [facility] with neuro monitoring Hold ibrutinib. Will not be a candidate for resuming this, will need alternate therapy for CLL as this likely contributed to SDH. Keppra 500 mg po bid. Plan for eventual SDH evacuation, though discussing operative timing in view of antiplatelet effect of ibrutinib. Neurosurgery admitted, Dr. Rich Midline shift is increased by about 2 mm. RESP: On room air He is currently protecting his airway. Will intubate if loss of airway protection. CV: Hypertension Hyperlipidemia Hold statin for now, LFTs elevated. Labetalol prn for SBP >170 per NSG. GI: Transaminitis. Passed swallow screen. Regular diet Elevated LFT ?2ry CLL. Trend LFTs. Right upper quadrant ultrasound. FEN/RENAL: Mild Hyponatremia Hypokalemia Trend sodium daily. Hold HCTZ which may contribute to hyponatremia. 0.9 NaCL with 20 MEq KCL/L @ 100/hr. Voiding Replace electrolytes per electrolyte protocol. ID: Monitor for signs and symptoms of infection HEME: CLL - WBC 170k (per Dr. Gallagher this is expected effect of reinitiation of ibrutinib on 09/12) Coags and platelet count normal. Ibrutinib causes bleeding, T1/2 4-6 hours.. Causes platelet dysfunction (which may be irreversible for life of platelets) but appears mechanism of bleeding risk is not entirely clear and no reversal agent. Discussed with Dr. Gallagher who would recommend holding off on surgery if possible. I contacted Dr. Rich and will hold off on OR unless declines neurologically and it becomes unavoidable. Will transfuse with platelets preoperatively. Dr. Gallagher also indicates that alternate agent must be chosen in the future for CLL management hereafter. ENDO: Check TSH PROPH: SCDs for DVT prophylaxis. Pharmacology DVT prophylaxis contraindicated due to subdural. ACCESS: Peripheral IV providing adequate access at this time. Overall impression: Patient is critically ill with symptomatic acute on subacute subdural hematoma which will eventually require operative evacuation. He remains at increased risk for problematic intraoperative bleeding and reaccumulation after surgery. General mental status appears to have declined slightly from yesterday.
--- NOTE | 2017-10-01 11:48 | P.PNONC ---
Subjective Interval history: Afebrile Patient sitting up in bed in no obvious distress Denies headache Complains that he feels forgetful Objective Vital Signs/Intake & Output: Vital Signs 09/30/17 12:00 09/30/17 12:38 09/30/17 14:00 Temperature 97.6 F 97.6 F Pulse Rate 72 77 76 Respiratory Rate 19 21 23 Blood Pressure 143/67 H 143/67 H Pulse Oximetry 96 94 L 09/30/17 16:00 09/30/17 20:00 09/30/17 21:15 Temperature 97.6 F 98.3 F 98.3 F Pulse Rate 72 75 88 Respiratory Rate 19 12 21 Blood Pressure 143/67 H 153/74 H 138/65 Pulse Oximetry 95 94 L 09/30/17 21:37 10/01/17 00:00 10/01/17 01:15 Temperature 98.1 F 98.1 F Pulse Rate 81 75 73 Respiratory Rate 18 22 22 Blood Pressure 158/79 H 167/80 H Pulse Oximetry 96 98 98 10/01/17 04:00 10/01/17 05:15 10/01/17 08:00 Temperature 98.1 F 98.2 F 97.7 F Pulse Rate 160 H 128 H 73 Respiratory Rate 20 20 22 Blood Pressure 99/67 L 124/68 136/73 Pulse Oximetry 97 96 10/01/17 09:10 10/01/17 09:15 10/01/17 10:50 Temperature 97.7 F Pulse Rate 65 73 Respiratory Rate 17 22 22 Blood Pressure 136/73 Pulse Oximetry 95 10/01/17 11:29 Temperature Pulse Rate Respiratory Rate 20 Blood Pressure Pulse Oximetry Intake & Output 09/30/17 10/01/17 10/01/17 18:59 06:59 18:59 Intake Total 962 / 962 Output Total 1900 / 1900 Balance -938 / -938 Weight 195 lb 8.8 oz Intake: IV 302 / 302 Cordarone Inj 150 MG In NS Inj 100 / 100 97 ML @ 100 mls/hr IV.SIG ONCE ONE Rx#:[id number] Magnesium Sulfate Inj 1 GM In 102 / 102 NS Inj 100 ML @ 100 mls/hr IV. SIG NOW HAL Rx#:[id number] KCl 10 mEq Premix Inj 10 meq In 100 / 100 100 ml @ 100 mls/hr IV.SIG Q1H HAL Rx#:[id number] Oral 660 / 660 Output: Urine 1900 / 1900 Other: # Voids 1 Date of Last Bowel Movement 09/29/17 09/29/17 Result Diagrams: 10/01/17 05:00 10/01/17 05:00 Laboratory Results: Laboratory Results - last 24 hr 10/01/17 10/01/17 05:00 05:00 WBC 73.6 H RBC 3.96 L Hgb 12.0 L Hct 36.9 L MCV 93.1 MCH 30.2 MCHC 32.4 RDW 16.1 Plt Count 241 MPV 8.8 Prelim Diff (Auto) Slide review pending Neut % (Auto) 13.0 L Lymph % (Auto) 85.1 H [place] % (Auto) 1.1 Eos % (Auto) 0.4 Baso % (Auto) 0.4 Neut # (Auto) 9.5 H Lymph # (Auto) 62.8 H [place] # (Auto) 0.8 Eos # (Auto) 0.3 Baso # (Auto) 0.3 H WBC Differential Manual diff final Seg Neuts % (Manual) 8 L Lymphocytes % (Manual) 85 H Monocytes % (Manual) 1 Basophils % (Manual) 1 Blast Cells % (Manual) 5 H Abs Neuts (Manual) 5.9 Differential Comment . Smudge Cells Present H Platelet Estimate Low L Platelet Morphology Normal Acanthocytes (Spur) 1+ H Sodium 138 Potassium 3.9 Chloride 104 Carbon Dioxide 20.6 L Anion Gap 13 BUN 15 Creatinine 0.97 Estimated GFR 77 L Random Glucose 83 Calcium 9.2 Total Creatine Kinase 27 L Troponin I Less than 0.02 L Medications: Active Medications Generic Name Dose Route Start Last Admin Trade Name Freq PRN Reason Stop Dose Admin Hydrocodone Bitart/Acetaminophen 1 tab 09/25/17 14:27 10/01/17 10:50 [place] 10/325 PO 1 tab Q4H PRN Administration Pain Scale 1 To 5 Albuterol 1 ampul 09/29/17 14:00 10/01/17 09:09 Duoneb Neb (Hal) NEB 1 ampul Q6HR WHILE AWAKE NEB HAL Administration Allopurinol 300 mg 09/26/17 09:00 10/01/17 08:30 Zyloprim PO 300 mg DAILY HAL Administration Amiodarone HCl 450 mg/ Sodium 250 mls @ 33.33 mls/hr 10/01/17 04:00 10/01/17 05:37 Chloride IV.CONT 1 mg/min .Q7H31M HAL 33.33 mls/hr Administration Protocol 1 MG/MIN Labetalol HCl 10 mg 09/25/17 14:27 09/29/17 02:58 Trandate Inj IV.PUSH 10 mg Q1H PRN Administration SYS BP GREATER THAN 170 MMHG Levetiracetam 500 mg 09/25/17 21:00 10/01/17 08:30 Keppra PO 500 mg BID HAL Administration Loratadine 10 mg 09/26/17 09:00 10/01/17 08:30 Claritin PO 10 mg DAILY HAL Administration Metoprolol Tartrate 12.5 mg 10/01/17 06:30 10/01/17 08:30 Lopressor PO 12.5 mg Q6H HAL Administration Morphine Sulfate 2 mg 09/25/17 14:27 10/01/17 00:16 Morphine Inj IV.PUSH 2 mg Q2H PRN Administration PAIN SCALE 6 TO 10 Pantoprazole Sodium 40 mg 09/26/17 09:00 10/01/17 08:30 Protonix PO 40 mg DAILY HAL Administration Senna/Docusate Sodium 1 tab 09/25/17 21:00 10/01/17 08:30 Kiya-Colace PO 1 tab BID HAL Administration Sodium Chloride 2 ml 10/01/17 09:00 10/01/17 08:30 Ns Flush IV.FLUSH 2 ml BID HAL Administration Objective Remarks: GENERAL: Elderly male resting in bed in no obvious distress SKIN: Warm and dry. HEAD: Normocephalic. EYES: No scleral icterus. No injection or drainage. NECK: Supple, trachea midline. No JVD or lymphadenopathy. CARDIOVASCULAR: Irregular rhythm. On amiodarone drip. RESPIRATORY: Breath sounds equal bilaterally. No accessory muscle use. GASTROINTESTINAL: Abdomen soft, non-tender, nondistended. EXTREMITIES: No cyanosis, or edema. MUSCULOSKELETAL: Generalized weakness. NEUROLOGICAL: Follows commands. Has expressive aphasia. Overall weak. Assessment/Plan - Plan 1. The patient was previously on treatment with ibrutinib for his CLL. As he has had a intracranial bleed he will no longer be a candidate for this medication as there is a very low risk of this happening on ibrutinib. No current therapy necessary while inpatient. 2. Subdural hematoma: due to ibrutinib. On recent imaging concern for growth of subdural. NSGY team planning for surgery. per current recommendations ibrutinib should be held for 3-7 days prior to invasive procedure due to risk of periprocedural bleeding. (reference vielka, "how i treat CLL patients with ibrutinib, blood 2018, Hoda et al major bleeding with ibrutininb, blood 2016.) If NSGY team feels that he would need to have surgical evacuation of hematoma he would be cleared from oncology standpoint to proceed. - Attending Statement The exam, history, and the medical decision-making described in the above note were completed with the assistance of the mid-level provider. I reviewed and agree with the findings presented. I attest that I had a [id number] encounter with the patient on the same day, and personally performed and documented my assessment and findings in the medical record. 67 yoM with CLL on ibrutinib admitted with subdural hematoma. Called to discuss with . Last dose was 09/24/2017. Should he need operation for drainage, he would be cleared from oncology standpoint to proceed with surgery. --current recommendations to hold ibrutinib 3-7 days prior to procedure to reduce the risk of periprocedural bleeding.
--- NOTE | 2017-10-01 19:09 | ECG ---
Date Performed: 10/01/2017 Time Performed: 03:16:46 PTAGE: 67 years EKG: Atrial fibrillation with rapid ventricular response Extensive ST-T changes may be due to my ocardial ischemia Abnormal ECG PREVIOUS TRACING :09/25/2017 @ 16.17 When compared to prior ekg,patient is now in atrial fibrilla tion with a rapid ventricular response. DOCTOR: Alex Bartholomew Interpretating Date/Time 10/01/2017 19:08:31
[2017-10-02] MEDS: Amiodarone Inj 450 MG in Sodium Chlor 0.9% Inj 241 ML IV.CONT SCH ×2 (04:18)
[2017-10-02] MEDS: Metoprolol Tartrate 25 MG Tablet PO SCH ×3 (06:13→22:05)
[2017-10-02 07:28] LABS: Baso # (Auto) 0.2 th/mm3 (0.0-0.2); Baso % (Auto) 0.3 % (0.0-2.0); Eos # (Auto) 0.2 th/mm3 (0.0-0.4); Eos % (Auto) 0.4 % (0.0-4.0); Hematocrit 32.3 % (39.0-51.0); Hemoglobin 10.5 gm/dL (13.0-17.0); Lymph # (Auto) 57.5 th/mm3 (1.0-4.8); Lymph % (Auto) 87.3 % (9.0-44.0); Mean Corpuscular HGB Conc 32.6 % (32.0-36.0); Mean Corpuscular Hemoglobin 30.1 pg (27.0-34.0); Mean Corpuscular Volume 92.5 fL (80.0-100.0); Mean Platelet Volume 8.8 fL (7.0-11.0); Mono # (Auto) 1.1 th/mm3 (0.0-0.9); Mono % (Auto) 1.6 % (0.0-8.0); Neut # (Auto) 6.9 th/mm3 (1.8-7.7); Neut % (Auto) 10.4 % (16.0-70.0); Platelet Count 235 th/mm3 (150-450); Red Cell Distribution Width 16.6 % (11.6-17.2); White Blood Count 65.8 th/mm3 (4.0-11.0)
[2017-10-02 07:49] LABS: Calcium 8.7 mg/dL (8.5-10.1); Carbon Dioxide 22.2 meq/L (21.0-32.0); Potassium 3.6 meq/L (3.5-5.1)
[2017-10-02 08:36] LABS: Monocytes 4 % (0-8)
[2017-10-02 08:37] LABS: Lymphocytes 81 % (9-44)
[2017-10-02 08:38] LABS: Ovalocytes 1+; Platelet Estimate Normal (Normal); Platelet Morphology Normal (Normal); Smudge Cells Present
--- NOTE | 2017-10-02 09:35 | P.PNCC ---
Subjective Subjective Remarks/Hospital Course: 67 yo WM with PMH of CLL (diagnosed 2007), HTN, HLD, gout who presented with 4 day history of headache. Today he had numbness and tingling on his right side and unsteady gait. CT brain demonstrates acute/subacute L subdural, 2.3 cm with 9 mm midline shift. He denies known trauma. He is not on anticoagulant however he has been treated for his CLL with ibrutinib. He states this was causing bruising so he held it for 30 days and resumed 09/12/17 at a lower dose. His last dose was the morning of 09/24. Review of medical literature indicates this drug is associated with spontaneous SDH and would place patient at risk for operative bleeding. Discussed with Dr. Gallagher and Dr. Rich regarding implications for operative timing. His oncologist is Dr. Minor at [facility] in [place]. 09/26: Awake, disoriented. Not in any acute distress. Having some headache. Following commands. 09/27: Awake and alert. Does not know month and date. Otherwise following commands. Not in any acute distress 09/28: Afebrile. Complaining of mild headache. No focal neurological deficits. Remains somewhat confused but follows general commands. SUBJECTIVE: 09/29: Afebrile. Complains of mild headache and requesting for pain medication. Remains somewhat confused but follows all commands. CT brain is slightly worse today, however patient's appears stable from a neurological standpoint. 09/30: Chronic lymphocytic leukemia and predictable underlying coagulopathy. Large left subdural hematoma of varying age. Remains symptomatic by headache and confusion. Increased risk of reaccumulation if surgically drained. 10/01: Patient is a little more lethargic this morning. He moves 4 extremities and he responds to questions but his general alertness is reduced. Additionally he went into new onset atrial fibrillation last night with a rapid ventricular response. He is now converted on an amiodarone drip and p.o. Lopressor. Cardiac enzymes have ruled out a myocardial injury. 10/02: Remains tachycardic but NSR now. We will convert Lopressor dose to 75 mg twice daily. He is much more alert today than yesterday. Repeat head CT ordered for today to assess mass-effect of subdural hematoma. Objective Vital Signs / I&O: Vital Signs 10/01/17 10:50 10/01/17 11:29 10/01/17 12:00 Temperature 97.8 F Pulse Rate 65 Respiratory Rate 22 20 22 Blood Pressure 117/63 Pulse Oximetry 94 L 10/01/17 13:15 10/01/17 14:43 10/01/17 16:00 Temperature 97.8 F 98.0 F Pulse Rate 65 65 63 Respiratory Rate 22 17 20 Blood Pressure 117/63 125/63 Pulse Oximetry 94 L 10/01/17 17:15 10/01/17 20:00 10/01/17 20:50 Temperature 98.0 F 97.7 F Pulse Rate 79 64 71 Respiratory Rate 24 21 20 Blood Pressure 154/70 H 128/62 Pulse Oximetry 98 98 10/01/17 20:53 10/02/17 00:00 10/02/17 04:00 Temperature 98.5 F 97.9 F Pulse Rate 60 66 Respiratory Rate 18 20 Blood Pressure 137/66 140/71 Pulse Oximetry 98 10/02/17 09:12 Temperature Pulse Rate 73 Respiratory Rate 17 Blood Pressure Pulse Oximetry 100 Intake & Output 10/01/17 10/02/17 10/02/17 18:59 06:59 18:59 Intake Total 250 / 250 250 / 250 Output Total 675 / 675 350 / 350 Balance -425 / -425 -100 / -100 Intake: IV 250 / 250 250 / 250 Cordarone Inj 450 MG In NS Inj 250 / 250 250 / 250 241 ML @ 1 MG/MIN 33.33 mls/hr IV.CONT .Q7H31M [facility] Rx#: [id number] Output: Urine 675 / 675 350 / 350 Other: # Bowel Movements 0 Result Diagrams: 10/02/17 05:48 10/02/17 05:48 Objective Remarks: GENERAL: 67-year-old well-developed patient who is more confused. SKIN: Warm and dry. No petechiae or rash. HEAD: Atraumatic. Normocephalic. EYES: Pupils equal and round about 2 mm bilaterally, reactive to light. No scleral icterus. No injection or drainage. ENT: No nasal bleeding or discharge. Mucous membranes pink and moist. NECK: Trachea midline. Airway widely patent and no obstructive noises. Swallows his own secretions without difficulty. CARDIOVASCULAR: Regular rate and rhythm. S1, S2, without murmur. No JVD. RESPIRATORY: No accessory muscle use. Clear to auscultation. Breath sounds equal bilaterally. Comfortable respiratory pattern. GASTROINTESTINAL: Abdomen soft, non-tender, nondistended. Bowel sounds present. No guarding. MUSCULOSKELETAL: Extremities without significant peripheral edema. No obvious deformities. Warm, well-perfused. NEUROLOGICAL: Speech is faster today but he remains confused. No obvious cranial nerve deficits, no facial droop, normal tongue protrusion, normal extraocular movements, normal shoulder shrug.. Motor grossly within normal limits. Five out of 5 muscle strength in the arms and legs. Normal speech. Assessment and Plan - Problem List (1) Subdural hematoma Code(s): S06.5X9A - Traumatic subdural hemorrhage with loss of consciousness of unspecified duration, initial encounter Status: Acute (2) CLL (chronic lymphocytic leukemia) Code(s): C91.90 - Lymphoid leukemia, unspecified not having achieved remission Status: Chronic (3) Bleeding in brain due to blood coagulation disorder Code(s): I60.9 - Nontraumatic subarachnoid hemorrhage, unspecified; D68.9 - Coagulation defect, unspecified Status: Acute (4) HTN (hypertension) Code(s): I10 - Essential (primary) hypertension Status: Chronic (5) HLD (hyperlipidemia) Code(s): E78.5 - Hyperlipidemia, unspecified Status: Chronic (6) Transaminitis Code(s): R74.0 - Nonspecific elevation of levels of transaminase and lactic acid dehydrogenase [LDH] Status: Chronic (7) Hypokalemia Code(s): E87.6 - Hypokalemia Status: Acute (8) Hyponatremia Code(s): E87.1 - Hypo-osmolality and hyponatremia Status: Chronic (9) Atrial fibrillation with rapid ventricular response Code(s): I48.91 - Unspecified atrial fibrillation Status: Acute - Assessment and Plan Plan: NEURO: Acute on subacute left subdural hematoma, 2.3 cm with 9 mm midline shift. Admission to [facility] with neuro monitoring Hold ibrutinib. Will not be a candidate for resuming this, will need alternate therapy for CLL as this likely contributed to SDH. Keppra 500 mg po bid. Plan for eventual SDH evacuation, though discussing operative timing in view of antiplatelet effect of ibrutinib. Neurosurgery admitted, Dr. Rich Midline shift is increased by about 2 mm. RESP: On room air Protects airway well. CV: Hypertension Hyperlipidemia Paroxysmal atrial fibrillation with rapid ventricular response Hold statin for now, LFTs elevated. Labetalol prn for SBP >170 per NSG. Started on Lopressor 2 days ago, now 75 mg p.o. twice daily. GI: Transaminitis. Passed swallow screen. Regular diet Elevated LFT ?2ry CLL. Trend LFTs. Right upper quadrant ultrasound. FEN/RENAL: Mild Hyponatremia Hypokalemia Trend sodium daily. Hold HCTZ which may contribute to hyponatremia. 0.9 NaCL with 20 MEq KCL/L @ 100/hr. Voiding Replace electrolytes per electrolyte protocol. ID: Monitor for signs and symptoms of infection HEME: CLL - WBC 170k (per Dr. Gallagher this is expected effect of reinitiation of ibrutinib on 09/12) Coags and platelet count normal. Ibrutinib causes bleeding, T1/2 4-6 hours.. Causes platelet dysfunction (which may be irreversible for life of platelets) but appears mechanism of bleeding risk is not entirely clear and no reversal agent. Discussed with Dr. Gallagher who would recommend holding off on surgery if possible. I contacted Dr. Rcih and will hold off on OR unless declines neurologically and it becomes unavoidable. Will transfuse with platelets preoperatively. Dr. Gallagher also indicates that alternate agent must be chosen in the future for CLL management hereafter. ENDO: Check TSH PROPH: SCDs for DVT prophylaxis. Pharmacology DVT prophylaxis contraindicated due to subdural. ACCESS: Peripheral IV providing adequate access at this time. Overall impression: Patient is critically ill with symptomatic acute on subacute subdural hematoma which may eventually require operative evacuation. He remains at increased risk for problematic intraoperative bleeding and reaccumulation after surgery. General mental status appears to have improved slightly from yesterday.
[2017-10-02] MEDS: Loratadine 10 MG Tablet PO SCH (09:39)
[2017-10-02] MEDS: levETIRAcetam 500 MG Tablet PO SCH ×2 (09:39→22:05)
[2017-10-02] MEDS: Allopurinol 300 MG Tablet PO SCH (09:39)
[2017-10-02] MEDS: Senna/Docusate Sodium 8.6/50 MG Tablet PO SCH ×2 (09:39→22:05)
--- NOTE | 2017-10-02 12:13 | CT ---
EXAM DATE: 10/02/2017 11:53 AM EDT AGE/SEX: 67 years / Male INDICATIONS: SUBDURAL HEMATOMA CLINICAL DATA: This is the patient's subsequent encounter. Patient reports that signs and symptoms h ave been present for 2 days and indicates a pain score of 0/10. MEDICAL/SURGICAL HISTORY: Leukemia. Hypertension. SUBDURAL None. RADIATION DOSE: 48.24 CTDI (mGy) COMPARISON: [facility] [place], CT HEAD W/O CONTRAST, 09/29/2017. . TECHNIQUE: CT of the head without contrast. Using automated exposure control and adjustment of the mA and/or kV according to patient size, radiation dose was kept as low as reasonably achievable to ob tain optimal diagnostic quality images. DICOM format image data is available electronically for revi ew and comparison. FINDINGS: There is a subacute left-sided subdural hematoma with mixed acute and chronic hemorrhage. This measur es up to about 2.4 cm in thickness and is associated with mass effect about 11 mm in midline shift wh ich is similar to the prior study from September 29. Ventricular size is relatively stable considering diff erences in technique. No acute bony abnormalities. Mucosal thickening in the paranasal sinuses. CONCLUSION: 1. Mixed left-sided subdural hematoma with acute and chronic hemorrhage measuring up to 2.4 cm in th ickness with about 11 mm of [id number] midline shift. Mass effect is similar to September 29. Electronically signed by: Stan Zayas MD 10/02/2017 12:12 PM EDT
[2017-10-03 07:28] LABS: Baso # (Auto) 1.9 th/mm3 (0.0-0.2); Baso % (Auto) 2.6 % (0.0-2.0); Eos # (Auto) 0.3 th/mm3 (0.0-0.4); Eos % (Auto) 0.5 % (0.0-4.0); Hematocrit 33.9 % (39.0-51.0); Hemoglobin 10.9 gm/dL (13.0-17.0); Lymph # (Auto) 61.8 th/mm3 (1.0-4.8); Lymph % (Auto) 86.9 % (9.0-44.0); Mean Corpuscular HGB Conc 32.2 % (32.0-36.0); Mean Corpuscular Hemoglobin 29.9 pg (27.0-34.0); Mean Platelet Volume 8.4 fL (7.0-11.0); Mono # (Auto) 0.8 th/mm3 (0.0-0.9); Mono % (Auto) 1.1 % (0.0-8.0); Neut # (Auto) 6.4 th/mm3 (1.8-7.7); Neut % (Auto) 8.9 % (16.0-70.0); Platelet Count 220 th/mm3 (150-450); Red Blood Count 3.64 mil/mm3 (4.50-5.90); Red Cell Distribution Width 16.5 % (11.6-17.2); White Blood Count 71.2 th/mm3 (4.0-11.0)
[2017-10-03 07:53] LABS: Calcium 8.9 mg/dL (8.5-10.1); Carbon Dioxide 21.3 meq/L (21.0-32.0); Potassium 3.7 meq/L (3.5-5.1)
[2017-10-03 09:22] LABS: Blast Cells 3 % (0-0); Lymphocytes 90 % (9-44); Monocytes 2 % (0-8); Smudge Cells Present
[2017-10-03 09:23] LABS: Platelet Estimate Normal (Normal); Platelet Morphology Normal (Normal)
[2017-10-03] MEDS: levETIRAcetam 500 MG Tablet PO SCH ×2 (10:55→20:10)
[2017-10-03] MEDS: Loratadine 10 MG Tablet PO SCH (10:55)
[2017-10-03] MEDS: Metoprolol Tartrate 25 MG Tablet PO SCH ×2 (10:55→20:10)
[2017-10-03] MEDS: Senna/Docusate Sodium 8.6/50 MG Tablet PO SCH ×2 (10:55→20:10)
[2017-10-03] MEDS: Allopurinol 300 MG Tablet PO SCH (10:56)
--- NOTE | 2017-10-03 11:33 | P.PNCC ---
Subjective Subjective Remarks/Hospital Course: 67 yo WM with PMH of CLL (diagnosed 2007), HTN, HLD, gout who presented with 4 day history of headache. Today he had numbness and tingling on his right side and unsteady gait. CT brain demonstrates acute/subacute L subdural, 2.3 cm with 9 mm midline shift. He denies known trauma. He is not on anticoagulant however he has been treated for his CLL with ibrutinib. He states this was causing bruising so he held it for 30 days and resumed 09/12/17 at a lower dose. His last dose was the morning of 09/24. Review of medical literature indicates this drug is associated with spontaneous SDH and would place patient at risk for operative bleeding. Discussed with Dr. Gallagher and Dr. Rich regarding implications for operative timing. His oncologist is Dr. Minor at [facility] in [place]. 09/26: Awake, disoriented. Not in any acute distress. Having some headache. Following commands. 09/27: Awake and alert. Does not know month and date. Otherwise following commands. Not in any acute distress 09/28: Afebrile. Complaining of mild headache. No focal neurological deficits. Remains somewhat confused but follows general commands. SUBJECTIVE: 09/29: Afebrile. Complains of mild headache and requesting for pain medication. Remains somewhat confused but follows all commands. CT brain is slightly worse today, however patient's appears stable from a neurological standpoint. 09/30: Chronic lymphocytic leukemia and predictable underlying coagulopathy. Large left subdural hematoma of varying age. Remains symptomatic by headache and confusion. Increased risk of reaccumulation if surgically drained. 10/01: Patient is a little more lethargic this morning. He moves 4 extremities and he responds to questions but his general alertness is reduced. Additionally he went into new onset atrial fibrillation last night with a rapid ventricular response. He is now converted on an amiodarone drip and p.o. Lopressor. Cardiac enzymes have ruled out a myocardial injury. 10/02: Remains tachycardic but NSR now. We will convert Lopressor dose to 75 mg twice daily. He is much more alert today than yesterday. Repeat head CT ordered for today to assess mass-effect of subdural hematoma. 10/03: Alert this morning and responding normally. Remains confused. Repeat head CT with considerable mass-effect from extra-axial fluid collection. Midline shift persists at 11 mm. Objective Vital Signs / I&O: Vital Signs 10/02/17 12:00 10/02/17 16:00 10/02/17 16:18 Temperature 98.8 F 98.4 F Pulse Rate 63 67 73 Respiratory Rate 23 22 17 Blood Pressure 135/65 122/60 Pulse Oximetry 95 96 10/02/17 20:00 10/02/17 20:22 10/03/17 00:00 Temperature 98.5 F Pulse Rate 72 73 Respiratory Rate 18 26 H Blood Pressure 148/79 H Pulse Oximetry 96 99 10/03/17 04:00 10/03/17 08:00 10/03/17 09:39 Temperature 98.9 F 98.4 F Pulse Rate 62 63 71 Respiratory Rate 13 21 20 Blood Pressure 136/60 147/71 H Pulse Oximetry 97 98 98 Intake & Output 10/02/17 10/03/17 10/03/17 18:59 06:59 18:59 Intake Total 875 / 875 240 / 240 Output Total 200 / 200 425 / 425 Balance 675 / 675 -185 / -185 Weight 89.8 kg Intake: IV 125 / 125 Cordarone Inj 450 MG In NS Inj 125 / 125 241 ML @ 1 MG/MIN 33.33 mls/hr IV.CONT .Q7H31M [facility] Rx#: [id number] Oral 750 / 750 240 / 240 Output: Urine 200 / 200 425 / 425 Other: # Voids 1 3 Date of Last Bowel Movement 09/29/17 09/29/17 09/29/17 # Bowel Movements 0 0 Result Diagrams: 10/03/17 06:33 10/03/17 06:33 Objective Remarks: GENERAL: 67-year-old well-developed patient who is more confused. SKIN: Warm and dry. No petechiae or rash. HEAD: Atraumatic. Normocephalic. EYES: Pupils equal and round about 2 mm bilaterally, reactive to light. No scleral icterus. No injection or drainage. ENT: No nasal bleeding or discharge. Mucous membranes pink and moist. NECK: Trachea midline. Airway widely patent and no obstructive noises. Swallows his own secretions without difficulty. CARDIOVASCULAR: Regular rate and rhythm. S1, S2, without murmur. No JVD. RESPIRATORY: No accessory muscle use. Clear to auscultation. Breath sounds equal bilaterally. Comfortable respiratory pattern. GASTROINTESTINAL: Abdomen soft, non-tender, nondistended. Bowel sounds present. No guarding. MUSCULOSKELETAL: Extremities without significant peripheral edema. No obvious deformities. Warm, well-perfused. NEUROLOGICAL: Speech is faster today but he remains confused. No obvious cranial nerve deficits, no facial droop, normal tongue protrusion, normal extraocular movements, normal shoulder shrug.. Motor grossly within normal limits. Five out of 5 muscle strength in the arms and legs. Normal speech. Assessment and Plan - Problem List (1) Subdural hematoma Code(s): S06.5X9A - Traumatic subdural hemorrhage with loss of consciousness of unspecified duration, initial encounter Status: Acute (2) CLL (chronic lymphocytic leukemia) Code(s): C91.90 - Lymphoid leukemia, unspecified not having achieved remission Status: Chronic (3) Bleeding in brain due to blood coagulation disorder Code(s): I60.9 - Nontraumatic subarachnoid hemorrhage, unspecified; D68.9 - Coagulation defect, unspecified Status: Acute (4) HTN (hypertension) Code(s): I10 - Essential (primary) hypertension Status: Chronic (5) HLD (hyperlipidemia) Code(s): E78.5 - Hyperlipidemia, unspecified Status: Chronic (6) Transaminitis Code(s): R74.0 - Nonspecific elevation of levels of transaminase and lactic acid dehydrogenase [LDH] Status: Chronic (7) Hypokalemia Code(s): E87.6 - Hypokalemia Status: Acute (8) Hyponatremia Code(s): E87.1 - Hypo-osmolality and hyponatremia Status: Chronic (9) Atrial fibrillation with rapid ventricular response Code(s): I48.91 - Unspecified atrial fibrillation Status: Acute - Assessment and Plan Plan: NEURO: Acute on subacute left subdural hematoma, 2.3 cm with 9 mm midline shift. Admission to [facility] with neuro monitoring Hold ibrutinib. Will not be a candidate for resuming this, will need alternate therapy for CLL as this likely contributed to SDH. Keppra 500 mg po bid. Plan for eventual SDH evacuation, though discussing operative timing in view of antiplatelet effect of ibrutinib. Neurosurgery admitted, Dr. Rich Midline shift is increased by about 11 mm. RESP: On room air Protects airway well. CV: Hypertension Hyperlipidemia Paroxysmal atrial fibrillation with rapid ventricular response Hold statin for now, LFTs elevated. Labetalol prn for SBP >170 per NSG. Started on Lopressor 2 days ago, now 75 mg p.o. twice daily. GI: Transaminitis. Passed swallow screen. Regular diet Elevated LFT ?2ry CLL. Trend LFTs. Right upper quadrant ultrasound. FEN/RENAL: Mild Hyponatremia Hypokalemia Trend sodium daily. Hold HCTZ which may contribute to hyponatremia. 0.9 NaCL with 20 MEq KCL/L @ 100/hr. Voiding Replace electrolytes per electrolyte protocol. ID: Monitor for signs and symptoms of infection HEME: CLL - WBC 170k (per Dr. Gallagher this is expected effect of reinitiation of ibrutinib on 09/12) Coags and platelet count normal. Ibrutinib causes bleeding, T1/2 4-6 hours.. Causes platelet dysfunction (which may be irreversible for life of platelets) but appears mechanism of bleeding risk is not entirely clear and no reversal agent. Discussed with Dr. Gallagher who would recommend holding off on surgery if possible. I contacted Dr. Rich and will hold off on OR unless declines neurologically and it becomes unavoidable. Will transfuse with platelets preoperatively. Dr. Gallagher also indicates that alternate agent must be chosen in the future for CLL management hereafter. ENDO: Check TSH PROPH: SCDs for DVT prophylaxis. Pharmacology DVT prophylaxis contraindicated due to subdural. ACCESS: Peripheral IV providing adequate access at this time. Overall impression: Patient is critically ill with symptomatic acute on subacute subdural hematoma which may eventually require operative evacuation. He remains at increased risk for problematic intraoperative bleeding and reaccumulation after surgery. General mental status appears to have improved slightly from 2 days ago. Nonetheless, mass-effect is impressive and he is clearly symptomatic..
[2017-10-03] MEDS ORDERED: Neostigmine Inj 5 MG/5 ML Syringe IV.PUSH ONE (12:00)
[2017-10-03] MEDS ORDERED: Normosol-R pH 7.4 Inj 2,000 ML IV.CONT ONE (12:00)
[2017-10-03] MEDS ORDERED: Lidocaine PF 1% Inj 5 ML Syringe INFILTRATN ONE (12:00)
[2017-10-03] MEDS ORDERED: Labetalol HCl Inj 100 MG/20 ML Vial IV.CONT ONE (12:00)
[2017-10-03] MEDS ORDERED: Glycopyrrolate Inj 1 MG/5 ML Syringe IV.PUSH ONE (12:00)
[2017-10-03] MEDS ORDERED: Phenylephrine/NS 1000 MCG/10ML Syringe IV.PUSH ONE (12:00)
[2017-10-03] MEDS: Morphine Inj 4 MG/ML Vial IV.PUSH PRN (17:33)
[2017-10-03] MEDS: Thrombin Topical Soln 5,000 UNIT Vial TOPICAL ONE (22:50)
[2017-10-03] MEDS: Gelatin Size 100 Topical Foam TOPICAL ONE (22:51)
[2017-10-03] MEDS: Lidocaine 1%/Epinephrine 1:100,000 Inj 30 ML Vial ONE (22:57)
[2017-10-03] MEDS ORDERED: fentaNYL Citrate Inj 100 MCG/2 ML Ampul ONE (23:59)
--- NOTE | 2017-10-04 00:11 | P.OP ---
Date of procedure: 10/03/17 Procedure: Left parietal aristeo hole for subdural hematoma Surgeon: Janak Church MD Pipeline Systems Operator: Blake Berumen Estimated blood loss (mL): 25 Operation and Findings: Moderate subacute subdural hematoma Procedure in detail: The patient was brought into the operating room and general endotracheal anesthesia introduced without difficulty. The patient was placed in supine position on the 3080 table with the head and neck in neutral position on the horseshoe headrest. All extremities were appropriately padded. The left side of the head was shaved with clippers and sterilely prepped and draped. Appropriate timeout procedure was performed with all personnel present and in agreement. 1% Xylocaine with epinephrine was used for local infiltration over the incision site which was made near the convexity at the posterior frontoparietal region and carried sharply down to the cranium. The self-retaining retractor was placed. The sheet metal contractor was used to place a single bur hole and the dura was incised in a cruciate fashion and the edges coagulated with the bipolar forceps. No significant underlying subdural membrane was encountered. A significant amount of subacute appearing subdural hematoma was evacuated from the subdural space with gentle suction and irrigation until clear. There appeared to be only a very thin subdural membrane. The 7 mm flat fluted drain was left in place in the subdural space and guided into place with the [place] 3 dissector. The drain was brought out through an incision in the posterior frontal parietal region and secured to the skin with nylon suture and attached to sterile suction. The incision was closed with 3-0 Vicryl for the galea and 3-0 nylon running for the scalp closure. A dressing of sterile [place] was placed. The patient was taken to recovery room in stable condition All counts were correct at the end of the case Estimated blood loss 25 cc No specimen was sent to pathology
[2017-10-04 04:58] LABS: Baso # (Auto) 0.3 th/mm3 (0.0-0.2); Baso % (Auto) 0.3 % (0.0-2.0); Eos # (Auto) 0.2 th/mm3 (0.0-0.4); Eos % (Auto) 0.3 % (0.0-4.0); Hematocrit 31.5 % (39.0-51.0); Hemoglobin 10.2 gm/dL (13.0-17.0); Lymph # (Auto) 62.5 th/mm3 (1.0-4.8); Lymph % (Auto) 82.3 % (9.0-44.0); Mean Corpuscular HGB Conc 32.3 % (32.0-36.0); Mean Corpuscular Hemoglobin 29.8 pg (27.0-34.0); Mean Corpuscular Volume 92.4 fL (80.0-100.0); Mean Platelet Volume 8.2 fL (7.0-11.0); Mono # (Auto) 2.1 th/mm3 (0.0-0.9); Mono % (Auto) 2.7 % (0.0-8.0); Neut # (Auto) 10.9 th/mm3 (1.8-7.7); Neut % (Auto) 14.4 % (16.0-70.0); Platelet Count 214 th/mm3 (150-450); Red Blood Count 3.41 mil/mm3 (4.50-5.90); Red Cell Distribution Width 16.3 % (11.6-17.2); White Blood Count 75.9 th/mm3 (4.0-11.0)
[2017-10-04 05:18] LABS: Calcium 8.1 mg/dL (8.5-10.1); Carbon Dioxide 20.2 meq/L (21.0-32.0); Potassium 4.2 meq/L (3.5-5.1)
--- NOTE | 2017-10-04 08:42 | P.PNCC ---
Subjective Subjective Remarks/Hospital Course: 67 yo WM with PMH of CLL (diagnosed 2007), HTN, HLD, gout who presented with 4 day history of headache. Today he had numbness and tingling on his right side and unsteady gait. CT brain demonstrates acute/subacute L subdural, 2.3 cm with 9 mm midline shift. He denies known trauma. He is not on anticoagulant however he has been treated for his CLL with ibrutinib. He states this was causing bruising so he held it for 30 days and resumed 09/12/17 at a lower dose. His last dose was the morning of 09/24. Review of medical literature indicates this drug is associated with spontaneous SDH and would place patient at risk for operative bleeding. Discussed with Dr. Gallagher and Dr. Rich regarding implications for operative timing. His oncologist is Dr. Minor at [facility] in [place]. 09/26: Awake, disoriented. Not in any acute distress. Having some headache. Following commands. 09/27: Awake and alert. Does not know month and date. Otherwise following commands. Not in any acute distress 09/28: Afebrile. Complaining of mild headache. No focal neurological deficits. Remains somewhat confused but follows general commands. SUBJECTIVE: 09/29: Afebrile. Complains of mild headache and requesting for pain medication. Remains somewhat confused but follows all commands. CT brain is slightly worse today, however patient's appears stable from a neurological standpoint. 09/30: Chronic lymphocytic leukemia and predictable underlying coagulopathy. Large left subdural hematoma of varying age. Remains symptomatic by headache and confusion. Increased risk of reaccumulation if surgically drained. 10/01: Patient is a little more lethargic this morning. He moves 4 extremities and he responds to questions but his general alertness is reduced. Additionally he went into new onset atrial fibrillation last night with a rapid ventricular response. He is now converted on an amiodarone drip and p.o. Lopressor. Cardiac enzymes have ruled out a myocardial injury. 10/02: Remains tachycardic but NSR now. We will convert Lopressor dose to 75 mg twice daily. He is much more alert today than yesterday. Repeat head CT ordered for today to assess mass-effect of subdural hematoma. 10/03: Alert this morning and responding normally. Remains confused. Repeat head CT with considerable mass-effect from extra-axial fluid collection. Midline shift persists at 11 mm. 10/04: Decompression and drainage large left acute and chronic subdural hematoma last evening. Easily extubated and breathing comfortably now. Protects his airway. Conversant. Remains confused but appears more alert today than preoperatively. Objective Vital Signs / I&O: Vital Signs 10/03/17 09:39 10/03/17 12:00 10/03/17 14:42 Temperature 98.0 F Pulse Rate 71 70 73 Respiratory Rate 20 18 23 Blood Pressure 128/66 129/65 Pulse Oximetry 98 94 L 10/03/17 19:01 10/03/17 20:00 10/03/17 20:27 Temperature 98.6 F Pulse Rate 79 Respiratory Rate 20 21 Blood Pressure 155/79 H Pulse Oximetry 98 97 10/03/17 23:45 10/04/17 00:15 10/04/17 00:30 Temperature 98.7 F Pulse Rate 75 71 74 Respiratory Rate 24 20 24 Blood Pressure 105/55 L 126/42 L 134/64 Pulse Oximetry 94 L 97 95 10/04/17 00:45 10/04/17 01:00 10/04/17 01:34 Temperature 98.4 F 97.8 F Pulse Rate 74 73 80 Respiratory Rate 21 20 21 Blood Pressure 134/73 132/58 L 148/64 H Pulse Oximetry 93 L 93 L 93 L 10/04/17 04:00 Temperature 99.2 F Pulse Rate 82 Respiratory Rate 20 Blood Pressure 134/62 Pulse Oximetry 94 L Intake & Output 10/03/17 10/04/17 10/04/17 18:59 06:59 18:59 Intake Total 0 / 0 Output Total 710 / 710 Balance -710 / -710 Weight 90.6 kg Intake: Oral 0 / 0 Output: Urine Amount (Catheter) 625 / 625 Indwelling Urethral Catheter 625 / 625 Wound Drainage Head SARAH Drain Other: Date of Last Bowel Movement 10/03/17 10/03/17 # Bowel Movements 1 1 Result Diagrams: 10/04/17 04:40 10/04/17 04:40 Objective Remarks: GENERAL: 67-year-old well-developed patient SKIN: Warm and dry. No petechiae or rash. HEAD: Atraumatic. Normocephalic. EYES: Pupils equal and round about 2 mm bilaterally, reactive to light. No scleral icterus. No injection or drainage. ENT: No nasal bleeding or discharge. Mucous membranes pink and moist. NECK: Trachea midline. Airway widely patent and no obstructive noises. Swallows his own secretions without difficulty. CARDIOVASCULAR: Regular rate and rhythm. S1, S2, without murmur. No JVD. RESPIRATORY: No accessory muscle use. Clear to auscultation. Breath sounds equal bilaterally. Comfortable respiratory pattern. GASTROINTESTINAL: Abdomen soft, non-tender, nondistended. Bowel sounds present. No guarding. MUSCULOSKELETAL: Extremities without significant peripheral edema. No obvious deformities. Warm, well-perfused. NEUROLOGICAL: Speech is sharper today but he remains confused. No obvious cranial nerve deficits, no facial droop, normal tongue protrusion, normal extraocular movements, normal shoulder shrug.. Motor grossly within normal limits. Five out of 5 muscle strength in the arms and legs. Normal speech. Essentially more alert and responsive than prior to drainage. Assessment and Plan - Problem List (1) Subdural hematoma Code(s): S06.5X9A - Traumatic subdural hemorrhage with loss of consciousness of unspecified duration, initial encounter Status: Acute (2) CLL (chronic lymphocytic leukemia) Code(s): C91.90 - Lymphoid leukemia, unspecified not having achieved remission Status: Chronic (3) Bleeding in brain due to blood coagulation disorder Code(s): I60.9 - Nontraumatic subarachnoid hemorrhage, unspecified; D68.9 - Coagulation defect, unspecified Status: Acute (4) HTN (hypertension) Code(s): I10 - Essential (primary) hypertension Status: Chronic (5) HLD (hyperlipidemia) Code(s): E78.5 - Hyperlipidemia, unspecified Status: Chronic (6) Transaminitis Code(s): R74.0 - Nonspecific elevation of levels of transaminase and lactic acid dehydrogenase [LDH] Status: Chronic (7) Hypokalemia Code(s): E87.6 - Hypokalemia Status: Acute (8) Hyponatremia Code(s): E87.1 - Hypo-osmolality and hyponatremia Status: Chronic (9) Atrial fibrillation with rapid ventricular response Code(s): I48.91 - Unspecified atrial fibrillation Status: Acute - Assessment and Plan Plan: NEURO: Acute on subacute left subdural hematoma, 2.3 cm with 9 mm midline shift. Admission to [facility] with neuro monitoring Hold ibrutinib. Will not be a candidate for resuming this, will need alternate therapy for CLL as this likely contributed to SDH. Keppra 500 mg po bid. Plan for eventual SDH evacuation, though discussing operative timing in view of antiplatelet effect of ibrutinib. Neurosurgery admitted, Dr. Rich Midline shift is increased by about 11 mm. Bur hole evacuation of large left acute on chronic subdural hematoma 10/03. RESP: On room air Protects airway well. CV: Hypertension Hyperlipidemia Paroxysmal atrial fibrillation with rapid ventricular response Hold statin for now, LFTs elevated. Labetalol prn for SBP >170 per NSG. Started on Lopressor 2 days ago, now 75 mg p.o. twice daily. GI: Transaminitis. Passed swallow screen. Regular diet Elevated LFT ?2ry CLL. Trend LFTs. Right upper quadrant ultrasound. FEN/RENAL: Mild Hyponatremia Hypokalemia Trend sodium daily. Hold HCTZ which may contribute to hyponatremia. 0.9 NaCL with 20 MEq KCL/L @ 50/hr. Voiding Replace electrolytes per electrolyte protocol. ID: Monitor for signs and symptoms of infection HEME: CLL - WBC 170k (per Dr. Gallagher this is expected effect of reinitiation of ibrutinib on 09/12) Coags and platelet count normal. Ibrutinib causes bleeding, T1/2 4-6 hours.. Causes platelet dysfunction (which may be irreversible for life of platelets) but appears mechanism of bleeding risk is not entirely clear and no reversal agent. Discussed with Dr. Gallagher who would recommend holding off on surgery if possible. I contacted Dr. Rich and will hold off on OR unless declines neurologically and it becomes unavoidable. Will transfuse with platelets preoperatively. Dr. Gallagher also indicates that alternate agent must be chosen in the future for CLL management hereafter. ENDO: Check TSH PROPH: SCDs for DVT prophylaxis. Pharmacology DVT prophylaxis contraindicated due to subdural. ACCESS: Peripheral IV providing adequate access at this time. Overall impression: Progressing well following decompression of large left acute on chronic subdural hematoma. Patient is clearly more alert this morning.
[2017-10-04] MEDS: Allopurinol 300 MG Tablet PO SCH (08:49)
[2017-10-04] MEDS: Metoprolol Tartrate 25 MG Tablet PO SCH ×2 (08:49→21:25)
[2017-10-04] MEDS: levETIRAcetam 500 MG Tablet PO SCH ×2 (08:49→21:25)
[2017-10-04] MEDS: Loratadine 10 MG Tablet PO SCH (08:49)
[2017-10-04 08:56] LABS: Lymphocytes 79 % (9-44); Monocytes 6 % (0-8); RBC Morphology Normal (Normal)
[2017-10-04 08:57] LABS: Platelet Estimate Normal (Normal); Platelet Morphology Normal (Normal); Smudge Cells Present
[2017-10-04] MEDS: Morphine Inj 4 MG/ML Vial IV.PUSH PRN (12:09)
--- NOTE | 2017-10-04 12:26 | CT ---
EXAM DATE: 10/04/2017 12:16 PM EDT AGE/SEX: 67 years / Male INDICATIONS: Post-operative evaluation of subdural hematoma. CLINICAL DATA: This is the patient's initial encounter. Patient reports that signs and symptoms have been present for 1 day and indicates a pain score of 5/10. MEDICAL/SURGICAL HISTORY: Leukemia. Hypertension. Craniotomy. RADIATION DOSE: 68.28 CTDI (mGy) ;Tabletop exam ; Patient motion COMPARISON: [facility], [place] HEAD W/O CONTRAST, 10/02/2017. . TECHNIQUE: CT of the head without contrast. Using automated exposure control and adjustment of the mA and/or kV according to patient size, radiation dose was kept as low as reasonably achievable to ob tain optimal diagnostic quality images. DICOM format image data is available electronically for revi ew and comparison. FINDINGS: Comparison is October 02. There is interval placement of a left-sided subdural drain with partial evacua tion of the mixed acute and chronic left subdural hematoma. Subdural hematoma now measures on average about 14 mm in thickness and midline shift has decreased from about 11 mm to 6 mm from [id number] . There is no new hemorrhage. There is some air within the left subdural space. There is partial opac ification of the ethmoid air cells. CONCLUSION: 1. Placement of left subdural drain with decrease in size LEFT subdural hematoma and decrease in mas s effect and midline shift. Electronically signed by: Stan Zayas MD 10/04/2017 12:25 PM EDT
--- NOTE | 2017-10-04 14:41 | P.PNNS ---
Subjective Interval history: 10/03: Patient went for a left parietal aristeo hole for evacuation of the subacute subdural haematoma. Post-operatively the patient was returned to [facility] for further care and monitoring. 10/04: This afternoon the patient is awake and alert in bed having lunch with assistance. He reports "not really" when asked if he has a headache, but Nursing reported that earlier he denied any but his came out and said that he had one. He is moving all extremities spontaneously and to command. He is oriented to person, place and time. Nursing reported that earlier he appeared to have pain to the knees with movement but after pain medication he was able to bend the knees without difficulty. <Liza,Christiano E - Last Filed: 10/04/17 14:49> Physical Exam Vital signs: Vital Signs 10/03/17 14:42 10/03/17 19:01 10/03/17 20:00 Temperature 98.6 F Pulse Rate 73 79 Respiratory Rate 23 20 21 Blood Pressure 129/65 155/79 H Pulse Oximetry 94 L 98 10/03/17 20:27 10/03/17 23:45 10/04/17 00:15 Temperature 98.7 F Pulse Rate 75 71 Respiratory Rate 24 20 Blood Pressure 105/55 L 126/42 L Pulse Oximetry 97 94 L 97 10/04/17 00:30 10/04/17 00:45 10/04/17 01:00 Temperature 98.4 F Pulse Rate 74 74 73 Respiratory Rate 24 21 20 Blood Pressure 134/64 134/73 132/58 L Pulse Oximetry 95 93 L 93 L 10/04/17 01:34 10/04/17 04:00 10/04/17 08:00 Temperature 97.8 F 99.2 F 98 F Pulse Rate 80 82 68 Respiratory Rate 21 20 Blood Pressure 148/64 H 134/62 134/68 Pulse Oximetry 93 L 94 L 10/04/17 09:23 10/04/17 12:00 10/04/17 13:41 Temperature 98 F Pulse Rate 68 Respiratory Rate 18 18 Blood Pressure 125/66 Pulse Oximetry 96 96 10/04/17 13:42 Temperature Pulse Rate Respiratory Rate 18 Blood Pressure Pulse Oximetry Intake & Output 10/03/17 10/04/17 10/04/17 18:59 06:59 18:59 Intake Total 0 / 0 Output Total 710 / 710 Balance -710 / -710 Weight 90.6 kg Intake: Oral 0 / 0 Output: Urine Amount (Catheter) 625 / 625 Indwelling Urethral Catheter 625 / 625 Wound Drainage 85 / 85 Head SARAH Drain 85 / 85 Other: Date of Last Bowel Movement 10/03/17 10/03/17 10/03/17 # Bowel Movements 1 1 Narrative: GENERAL: Awake & alert in bed eating lunch. Affect slightly flat. Readily interacts. No apparent distress. HEENT: Left side surgical incision well approximated w/lisandro, slight serosanguinous drainage on dressing, dressing intact. SARAH drain to bulb suction w /serosanguinous-coloured drainage. PERRLA 2-3 mm brisk, EOMI. MMM & pink, tongue midline to protrusion. RESPIRATORY: CTAB w/o W/R/R, equal excursion, nonlaboured, on NC. CARDIOVASCULAR: S1S2 w/RRR w/o M/G/R, monitor is sinus rhythm w/o any ectopy noted. GASTROINTESTINAL: Abdomen soft, nontender, bowel sounds not appreciated. GENITOURINARY: Hendricks catheter to BSD w/clear yellow urine. MUSCULOSKELETAL: SILVER spontaneously & purposefully w/o difficulty. No evident clubbing or deformity. NEUROLOGICAL: AAOx3. Speech clear & appropriate. Appears to have some mild expressive aphasia. Follows simple commands w/o difficulty. CN II through XII appear grossly intact. SILVER to command, strength appears normal. - Urinary Catheter Management Indwelling Urethral Catheter Cath placed during this visit: yes Reason for continuing: Hourly intake/output Insertion date: 10/03/17 Insertion time: 22:19 <Christiano De Jesus - Last Filed: 10/04/17 14:49> - Urinary Catheter Management Indwelling Urethral Catheter Cath placed during this visit: no <Janak Church - Last Filed: 11/25/17 21:52> Assessment and Plan - Plan Impression: Moderate subacute subdural hematoma The patient is doing well post-operatively. He seems to have some expressive aphasia but is otherwise neurologically intact. Past 24 hrs: Afebrile. SARAH drain output of 85 mL since surgery as of shift change this morning. Reviewed labs for today. Increase in leukocytosis. Drop in haemoglobin level. Sodium 140. eGFR 68. CT brain demonstrates decrease in size of left SDH and decrease in mass effect & midline shift. POD #1 () s/p: Left parietal aristeo hole for subdural hematoma Plan: Critical care management per [employer]. Neuro checks. Stat CT brain for any decline in neuro status. Monitor SARAH drain output. Hold pharmacologic DVT prophylaxis. Mechanical DVT prophylaxis. Stress ulcer prophylaxis. <Christiano De Jesus - Last Filed: 10/04/17 14:49> - Attending Attestation The exam, history, and the medical decision-making described in the above note were completed with the assistance of the mid-level provider. I reviewed and agree with the findings presented. I attest that I had a [id number] encounter with the patient on the same day, and personally performed and documented my assessment and findings in the medical record. <Janak Church - Last Filed: 11/25/17 21:52>
--- NOTE | 2017-10-04 18:06 | P.PNONC ---
Subjective Interval history: Resting in bed, no distress. Confused. Objective Vital Signs/Intake & Output: Vital Signs 10/03/17 19:01 10/03/17 20:00 10/03/17 20:27 Temperature 98.6 F Pulse Rate 79 Respiratory Rate 20 21 Blood Pressure 155/79 H Pulse Oximetry 98 97 10/03/17 23:45 10/04/17 00:15 10/04/17 00:30 Temperature 98.7 F Pulse Rate 75 71 74 Respiratory Rate 24 20 24 Blood Pressure 105/55 L 126/42 L 134/64 Pulse Oximetry 94 L 97 95 10/04/17 00:45 10/04/17 01:00 10/04/17 01:34 Temperature 98.4 F 97.8 F Pulse Rate 74 73 80 Respiratory Rate 21 20 21 Blood Pressure 134/73 132/58 L 148/64 H Pulse Oximetry 93 L 93 L 93 L 10/04/17 04:00 10/04/17 08:00 10/04/17 09:23 Temperature 99.2 F 98 F Pulse Rate 82 68 Respiratory Rate 20 Blood Pressure 134/62 134/68 Pulse Oximetry 94 L 96 10/04/17 12:00 10/04/17 13:41 10/04/17 13:42 Temperature 98 F Pulse Rate 68 Respiratory Rate 18 18 18 Blood Pressure 125/66 Pulse Oximetry 96 10/04/17 16:00 Temperature 98 F Pulse Rate 72 Respiratory Rate 18 Blood Pressure 131/68 Pulse Oximetry 95 Intake & Output 10/03/17 10/04/17 10/04/17 18:59 06:59 18:59 Intake Total 0 / 0 300 / 300 Output Total 710 / 710 425 / 425 Balance -710 / -710 -125 / -125 Weight 90.6 kg Intake: Oral 0 / 0 300 / 300 Output: Urine Amount (Catheter) 625 / 625 350 / 350 Indwelling Urethral Catheter 625 / 625 350 / 350 Wound Drainage 85 / 85 75 / 75 Head SARAH Drain 85 / 85 75 / 75 Other: Date of Last Bowel Movement 10/03/17 10/03/17 10/03/17 # Bowel Movements 1 1 Result Diagrams: 10/04/17 04:40 10/04/17 04:40 Laboratory Results: Laboratory Results - last 24 hr 10/04/17 10/04/17 04:40 04:40 WBC 75.9 H RBC 3.41 L Hgb 10.2 L Hct 31.5 L MCV 92.4 MCH 29.8 MCHC 32.3 RDW 16.3 Plt Count 214 MPV 8.2 Prelim Diff (Auto) Slide review pending Neut % (Auto) 14.4 L Lymph % (Auto) 82.3 H Dickey % (Auto) 2.7 Eos % (Auto) 0.3 Baso % (Auto) 0.3 Neut # (Auto) 10.9 H Lymph # (Auto) 62.5 H Dickey # (Auto) 2.1 H Eos # (Auto) 0.2 Baso # (Auto) 0.3 H WBC Differential Manual diff final Seg Neuts % (Manual) 14 L Band Neuts % (Manual) 1 Lymphocytes % (Manual) 79 H Monocytes % (Manual) 6 Abs Neuts (Manual) 11.4 H Differential Comment . Smudge Cells Present H Platelet Estimate Normal Platelet Morphology Normal RBC Morphology Normal Sodium 140 Potassium 4.2 Chloride 107 Carbon Dioxide 20.2 L Anion Gap 13 BUN 20 H Creatinine 1.08 Estimated GFR 68 L Random Glucose 87 Calcium 8.1 L D Imaging Studies: Impressions Head CT 10/04/17 12:00 CONCLUSION: 1. Placement of left subdural drain with decrease in size LEFT subdural hematoma and decrease in mass effect and midline shift. Medications: Active Medications Generic Name Dose Route Start Last Admin Trade Name Freq PRN Reason Stop Dose Admin Hydrocodone Bitart/Acetaminophen 1 tab 09/25/17 14:27 10/04/17 13:41 Empire 10/325 PO 1 tab Q4H PRN Administration Pain Scale 1 To 5 Allopurinol 300 mg 09/26/17 09:00 10/04/17 08:49 Zyloprim PO 300 mg DAILY YAYO Administration Labetalol HCl 10 mg 09/25/17 14:27 09/29/17 02:58 Trandate Inj IV.PUSH 10 mg Q1H PRN Administration SYS BP GREATER THAN 170 MMHG Levetiracetam 500 mg 09/25/17 21:00 10/04/17 08:49 Keppra PO 500 mg BID YAYO Administration Loratadine 10 mg 09/26/17 09:00 10/04/17 08:49 Claritin PO 10 mg DAILY YAYO Administration Metoprolol Tartrate 75 mg 10/02/17 09:30 10/04/17 08:49 Lopressor PO 75 mg BID YAYO Administration Morphine Sulfate 2 mg 09/25/17 14:27 10/04/17 12:09 Morphine Inj IV.PUSH 2 mg Q2H PRN Administration PAIN SCALE 6 TO 10 Pantoprazole Sodium 40 mg 09/26/17 09:00 10/04/17 08:49 Protonix PO 40 mg DAILY YAYO Administration Senna/Docusate Sodium 1 tab 09/25/17 21:00 10/03/17 20:10 Kiya-Colace PO 1 tab BID YAYO Administration Sodium Chloride 2 ml 10/01/17 09:00 10/03/17 20:10 Ns Flush IV.FLUSH 2 ml BID YAYO Administration Objective Remarks: GENERAL: Well-nourished, well-developed patient. SKIN: Warm and dry. HEAD: s/p surgical procedure, bandaging and drain EYES: No scleral icterus. No injection or drainage. NECK: Supple, trachea midline. No JVD or lymphadenopathy. RESPIRATORY: No accessory muscle use. GASTROINTESTINAL: Abdomen soft, non-tender, nondistended. EXTREMITIES: No cyanosis, or edema. MUSCULOSKELETAL: Adequate muscle tone. NEUROLOGICAL: No obvious focal deficit. Awake, alert, and oriented x3. PSYCHIATRIC: Appropriate mood and affect; insight and judgment normal. Assessment/Plan - Plan 1. CLL: with leukocytosis. Ibrutinib held. Due to bleeding on ibrutinib patient will not be a candidate to resume this medication. He will need to have close follow up with Dr. Minor at [facility] on hospital discharge to discuss further treatment of CLL. 2. Subdural hematoma: s/p NSGY procedure. Critical care team and neurosurgery team following closely.
[2017-10-04] MEDS: Thrombin Topical Soln 5,000 UNIT Vial TOPICAL ONE (19:28)
[2017-10-04] MEDS: Senna/Docusate Sodium 8.6/50 MG Tablet PO SCH ×2 (19:28→21:25)
[2017-10-04] MEDS: Lidocaine 1%/Epinephrine 1:100,000 Inj 30 ML Vial ONE (19:28)
[2017-10-04] MEDS: Gelatin Size 100 Topical Foam TOPICAL ONE (19:38)
[2017-10-05 05:09] LABS: Baso # (Auto) 0.3 th/mm3 (0.0-0.2); Baso % (Auto) 0.5 % (0.0-2.0); Eos # (Auto) 0.4 th/mm3 (0.0-0.4); Eos % (Auto) 0.7 % (0.0-4.0); Hematocrit 33.1 % (39.0-51.0); Hemoglobin 10.8 gm/dL (13.0-17.0); Lymph # (Auto) 48.3 th/mm3 (1.0-4.8); Lymph % (Auto) 85.5 % (9.0-44.0); Mean Corpuscular HGB Conc 32.7 % (32.0-36.0); Mean Corpuscular Hemoglobin 30.2 pg (27.0-34.0); Mean Corpuscular Volume 92.5 fL (80.0-100.0); Mean Platelet Volume 8.4 fL (7.0-11.0); Mono # (Auto) 0.3 th/mm3 (0.0-0.9); Mono % (Auto) 0.6 % (0.0-8.0); Neut # (Auto) 7.2 th/mm3 (1.8-7.7); Neut % (Auto) 12.7 % (16.0-70.0); Platelet Count 209 th/mm3 (150-450); Red Blood Count 3.58 mil/mm3 (4.50-5.90); Red Cell Distribution Width 16.3 % (11.6-17.2); White Blood Count 56.4 th/mm3 (4.0-11.0)
[2017-10-05 05:39] LABS: Calcium 8.4 mg/dL (8.5-10.1); Carbon Dioxide 23.6 meq/L (21.0-32.0); Potassium 3.9 meq/L (3.5-5.1)
--- NOTE | 2017-10-05 08:32 | P.PNCC ---
Subjective Subjective Remarks/Hospital Course: 67 yo WM with PMH of CLL (diagnosed 2007), HTN, HLD, gout who presented with 4 day history of headache. Today he had numbness and tingling on his right side and unsteady gait. CT brain demonstrates acute/subacute L subdural, 2.3 cm with 9 mm midline shift. He denies known trauma. He is not on anticoagulant however he has been treated for his CLL with ibrutinib. He states this was causing bruising so he held it for 30 days and resumed 09/12/17 at a lower dose. His last dose was the morning of 09/24. Review of medical literature indicates this drug is associated with spontaneous SDH and would place patient at risk for operative bleeding. Discussed with Dr. Gallagher and Dr. Rich regarding implications for operative timing. His oncologist is Dr. Minor at [facility] in [place]. 09/26: Awake, disoriented. Not in any acute distress. Having some headache. Following commands. 09/27: Awake and alert. Does not know month and date. Otherwise following commands. Not in any acute distress 09/28: Afebrile. Complaining of mild headache. No focal neurological deficits. Remains somewhat confused but follows general commands. SUBJECTIVE: 09/29: Afebrile. Complains of mild headache and requesting for pain medication. Remains somewhat confused but follows all commands. CT brain is slightly worse today, however patient's appears stable from a neurological standpoint. 09/30: Chronic lymphocytic leukemia and predictable underlying coagulopathy. Large left subdural hematoma of varying age. Remains symptomatic by headache and confusion. Increased risk of reaccumulation if surgically drained. 10/01: Patient is a little more lethargic this morning. He moves 4 extremities and he responds to questions but his general alertness is reduced. Additionally he went into new onset atrial fibrillation last night with a rapid ventricular response. He is now converted on an amiodarone drip and p.o. Lopressor. Cardiac enzymes have ruled out a myocardial injury. 10/02: Remains tachycardic but NSR now. We will convert Lopressor dose to 75 mg twice daily. He is much more alert today than yesterday. Repeat head CT ordered for today to assess mass-effect of subdural hematoma. 10/03: Alert this morning and responding normally. Remains confused. Repeat head CT with considerable mass-effect from extra-axial fluid collection. Midline shift persists at 11 mm. 10/04: Decompression and drainage large left acute and chronic subdural hematoma last evening. Easily extubated and breathing comfortably now. Protects his airway. Conversant. Remains confused but appears more alert today than preoperatively. 10/05: Alert this morning but trouble finding words and understanding. Moves 4 limbs with good strength. Tracks well with eyes. Protects airway well. Objective Vital Signs / I&O: Vital Signs 10/04/17 09:23 10/04/17 12:00 10/04/17 13:41 Temperature 98 F Pulse Rate 68 Respiratory Rate 18 18 Blood Pressure 125/66 Pulse Oximetry 96 96 10/04/17 13:42 10/04/17 16:00 10/04/17 18:30 Temperature 98 F Pulse Rate 72 Respiratory Rate 18 18 16 Blood Pressure 131/68 Pulse Oximetry 95 10/04/17 18:31 10/04/17 20:00 10/04/17 22:08 Temperature 97.9 F Pulse Rate 84 Respiratory Rate 16 19 Blood Pressure 124/60 Pulse Oximetry 96 96 10/05/17 00:00 10/05/17 01:26 10/05/17 04:00 Temperature 99.1 F 97.9 F Pulse Rate 68 62 Respiratory Rate 23 17 Blood Pressure 121/74 128/71 Pulse Oximetry 96 97 96 Intake & Output 10/04/17 10/05/17 10/05/17 18:59 06:59 18:59 Intake Total 300 / 300 720 / 720 Output Total 425 / 425 400 / 400 Balance -125 / -125 320 / 320 Weight 90.8 kg Intake: Oral 300 / 300 720 / 720 Output: Urine Amount (Catheter) 350 / 350 400 / 400 Indwelling Urethral Catheter 350 / 350 400 / 400 Wound Drainage 75 / 75 Head SARAH Drain 75 / 75 Other: Date of Last Bowel Movement 10/03/17 10/03/17 Result Diagrams: 10/05/17 04:25 10/05/17 04:25 Objective Remarks: GENERAL: 67-year-old well-developed patient SKIN: Warm and dry. No petechiae or rash. HEAD: Atraumatic. Normocephalic. EYES: Pupils equal and round about 2 mm bilaterally, reactive to light. No scleral icterus. No injection or drainage. ENT: No nasal bleeding or discharge. Mucous membranes pink and moist. NECK: Trachea midline. Airway widely patent and no obstructive noises. Swallows his own secretions without difficulty. CARDIOVASCULAR: Regular rate and rhythm. S1, S2, without murmur. No JVD. RESPIRATORY: No accessory muscle use. Clear to auscultation. Breath sounds equal bilaterally. Comfortable respiratory pattern. GASTROINTESTINAL: Abdomen soft, non-tender, nondistended. Bowel sounds present. No guarding. MUSCULOSKELETAL: Extremities without significant peripheral edema. No obvious deformities. Warm, well-perfused. NEUROLOGICAL: Speech is sharper today but he remains confused. No obvious cranial nerve deficits, no facial droop, normal tongue protrusion, normal extraocular movements, normal shoulder shrug.. Motor grossly within normal limits. Five out of 5 muscle strength in the arms and legs. Normal speech. Remains more alert and responsive than prior to drainage. Assessment and Plan - Problem List (1) Subdural hematoma Code(s): S06.5X9A - Traumatic subdural hemorrhage with loss of consciousness of unspecified duration, initial encounter Status: Acute (2) CLL (chronic lymphocytic leukemia) Code(s): C91.90 - Lymphoid leukemia, unspecified not having achieved remission Status: Chronic (3) Bleeding in brain due to blood coagulation disorder Code(s): I60.9 - Nontraumatic subarachnoid hemorrhage, unspecified; D68.9 - Coagulation defect, unspecified Status: Acute (4) HTN (hypertension) Code(s): I10 - Essential (primary) hypertension Status: Chronic (5) HLD (hyperlipidemia) Code(s): E78.5 - Hyperlipidemia, unspecified Status: Chronic (6) Transaminitis Code(s): R74.0 - Nonspecific elevation of levels of transaminase and lactic acid dehydrogenase [LDH] Status: Chronic (7) Hypokalemia Code(s): E87.6 - Hypokalemia Status: Acute (8) Hyponatremia Code(s): E87.1 - Hypo-osmolality and hyponatremia Status: Chronic (9) Atrial fibrillation with rapid ventricular response Code(s): I48.91 - Unspecified atrial fibrillation Status: Acute - Assessment and Plan Plan: NEURO: Acute on subacute left subdural hematoma, 2.3 cm with 9 mm midline shift. Admission to [facility] with neuro monitoring Hold ibrutinib. Will not be a candidate for resuming this, will need alternate therapy for CLL as this likely contributed to SDH. Keppra 500 mg po bid. Plan for eventual SDH evacuation, though discussing operative timing in view of antiplatelet effect of ibrutinib. Neurosurgery admitted, Dr. Rich Midline shift is increased by about 11 mm. Mary hole evacuation of large left acute on chronic subdural hematoma 10/03. RESP: On room air Protects airway well. CV: Hypertension Hyperlipidemia Paroxysmal atrial fibrillation with rapid ventricular response Hold statin for now, LFTs elevated. Labetalol prn for SBP >170 per NSG. Started on Lopressor for a fib prophylaxis now 75 mg p.o. twice daily. Remains in normal sinus rhythm. GI: Transaminitis. Passed swallow screen. Regular diet Elevated LFT ?2ry CLL. Trend LFTs. Right upper quadrant ultrasound. FEN/RENAL: Mild Hyponatremia Hypokalemia Trend sodium daily. Hold HCTZ which may contribute to hyponatremia. 0.9 NaCL with 20 MEq KCL/L @ 50/hr. Voiding Replace electrolytes per electrolyte protocol. ID: Monitor for signs and symptoms of infection HEME: CLL - WBC 170k (per Dr. Gallagher this is expected effect of reinitiation of ibrutinib on 09/12) Coags and platelet count normal. Ibrutinib causes bleeding, T1/2 4-6 hours.. Causes platelet dysfunction (which may be irreversible for life of platelets) but appears mechanism of bleeding risk is not entirely clear and no reversal agent. Discussed with Dr. Gallagher who would recommend holding off on surgery if possible. I contacted Dr. Rich and will hold off on OR unless declines neurologically and it becomes unavoidable. Will transfuse with platelets preoperatively. Dr. Gallagher also indicates that alternate agent must be chosen in the future for CLL management hereafter. ENDO: Check TSH PROPH: SCDs for DVT prophylaxis. Pharmacology DVT prophylaxis contraindicated due to subdural. ACCESS: Peripheral IV providing adequate access at this time. Overall impression: Progressing well following decompression of large left acute on chronic subdural hematoma. Patient is clearly more alert this morning. Physical therapy and occupational therapy seeing him daily.
[2017-10-05] MEDS: Senna/Docusate Sodium 8.6/50 MG Tablet PO SCH ×2 (08:52→20:56)
[2017-10-05] MEDS: levETIRAcetam 500 MG Tablet PO SCH ×2 (08:52→20:55)
[2017-10-05] MEDS: Allopurinol 300 MG Tablet PO SCH (08:52)
[2017-10-05] MEDS: Loratadine 10 MG Tablet PO SCH (08:53)
[2017-10-05] MEDS: Metoprolol Tartrate 25 MG Tablet PO SCH ×2 (09:08→20:56)
[2017-10-05 10:40] LABS: Eosinophils 1 % (0-4); Lymphocytes 87 % (9-44); Monocytes 3 % (0-8)
[2017-10-05 10:42] LABS: Platelet Estimate Normal (Normal); Platelet Morphology Normal (Normal); Smudge Cells Present
--- NOTE | 2017-10-05 16:14 | P.PNNS ---
Subjective Interval history: 10/03: Patient went for a left parietal aristeo hole for evacuation of the subacute subdural haematoma. Post-operatively the patient was returned to [facility] for further care and monitoring. 10/04: This afternoon the patient is awake and alert in bed having lunch with assistance. He reports "not really" when asked if he has a headache, but Nursing reported that earlier he denied any but his came out and said that he had one. He is moving all extremities spontaneously and to command. He is oriented to person, place and time. Nursing reported that earlier he appeared to have pain to the knees with movement but after pain medication he was able to bend the knees without difficulty. 10/05: When seen the patient is asleep but does awaken to voice. He has no complaints. The patient does have some difficulty finding words. He moves all extremities to command and his strength seems to be normal. <Christiano De Jesus E - Last Filed: 10/05/17 16:24> Physical Exam Vital signs: Vital Signs 10/04/17 18:30 10/04/17 18:31 10/04/17 20:00 Temperature 97.9 F Pulse Rate 84 Respiratory Rate 16 16 19 Blood Pressure 124/60 Pulse Oximetry 96 10/04/17 22:08 10/05/17 00:00 10/05/17 01:26 Temperature 99.1 F Pulse Rate 68 Respiratory Rate 23 Blood Pressure 121/74 Pulse Oximetry 96 96 97 10/05/17 04:00 10/05/17 08:00 10/05/17 10:00 Temperature 97.9 F 98.2 F Pulse Rate 62 64 62 Respiratory Rate 17 17 Blood Pressure 128/71 138/78 Pulse Oximetry 96 96 10/05/17 12:00 Temperature 97.7 F Pulse Rate 62 Respiratory Rate 18 Blood Pressure 103/58 L Pulse Oximetry 96 Intake & Output 10/04/17 10/05/17 10/05/17 18:59 06:59 18:59 Intake Total 300 / 300 720 / 720 Output Total 425 / 425 400 / 400 Balance -125 / -125 320 / 320 Weight 90.8 kg Intake: Oral 300 / 300 720 / 720 Output: Urine Amount (Catheter) 350 / 350 400 / 400 Indwelling Urethral Catheter 350 / 350 400 / 400 Wound Drainage 75 / 75 Head SARAH Drain 75 / 75 Other: Date of Last Bowel Movement 10/03/17 10/03/17 10/03/17 Narrative: GENERAL: Asleep but awakens to voice and is alert after that. Affect slightly flat. Readily interacts. No apparent distress. HEENT: Left side surgical incision well approximated w/lisandro, SARAH drain to bulb suction w/some serosanguinous-coloured drainage. PERRLA 3 mm brisk, EOMI. MMM & pink, tongue midline to protrusion. MUSCULOSKELETAL: SILVER to command. No evident clubbing or deformity. NEUROLOGICAL: Asleep but awakens to voice and alert after that. Oriented to person, place & time. Speech clear but continues to have some mild expressive aphasia. Follows simple commands w/o difficulty. CN II through XII appear grossly intact. PERRLA 3 mm brisk, EOMI. Tongue midline to protrusion. Sensation to light touch intact to all extremities. SILVER to command, strength appears normal. - Urinary Catheter Management Indwelling Urethral Catheter Cath placed during this visit: yes Reason for continuing: Hourly intake/output Insertion date: 10/03/17 Insertion time: 22:19 <Christiano De Jesus E - Last Filed: 10/05/17 16:24> - Urinary Catheter Management Indwelling Urethral Catheter Cath placed during this visit: no <Janak Church - Last Filed: 11/25/17 21:58> Assessment and Plan - Plan Impression: Moderate subacute subdural hematoma The patient continues to do well post-operatively. He is still having expressive aphasia but is otherwise neurologically intact. Past 24 hrs: Afebrile. SARAH drain output of 75 mL for the past 24 hrs as of shift change this morning. Reviewed labs for today. Decrease in leukocytosis. Improvement in haemoglobin level. Sodium 143. eGFR 64. CT brain demonstrates decrease in size of left SDH and decrease in mass effect & midline shift. POD #2 () s/p: Left parietal aristeo hole for subdural hematoma Plan: Critical care management per [employer]. Neuro checks. Stat CT brain for any decline in neuro status. Monitor SARAH drain output. Hold pharmacologic DVT prophylaxis. Mechanical DVT prophylaxis. Stress ulcer prophylaxis. Anticipate that SARAH drain will be removed tomorrow. <Christiano De Jesus - Last Filed: 10/05/17 16:24> - Attending Attestation The exam, history, and the medical decision-making described in the above note were completed with the assistance of the mid-level provider. I reviewed and agree with the findings presented. I attest that I had a [id number] encounter with the patient on the same day, and personally performed and documented my assessment and findings in the medical record. <Janak Church - Last Filed: 11/25/17 21:58>
[2017-10-06] MEDS: Labetalol HCl Inj 100 MG/20 ML Vial IV.PUSH PRN (09:17)
[2017-10-06] MEDS: Loratadine 10 MG Tablet PO SCH ×2 (10:18→13:32)
[2017-10-06] MEDS: levETIRAcetam 500 MG Tablet PO SCH ×3 (10:18→20:15)
[2017-10-06] MEDS: Metoprolol Tartrate 25 MG Tablet PO SCH ×3 (10:18→20:15)
[2017-10-06] MEDS: Senna/Docusate Sodium 8.6/50 MG Tablet PO SCH ×3 (10:19→20:05)
[2017-10-06] MEDS: Allopurinol 300 MG Tablet PO SCH ×2 (10:19→13:32)
--- NOTE | 2017-10-06 10:54 | P.PNCC ---
Subjective Subjective Remarks/Hospital Course: 67 yo WM with PMH of CLL (diagnosed 2007), HTN, HLD, gout who presented with 4 day history of headache. Today he had numbness and tingling on his right side and unsteady gait. CT brain demonstrates acute/subacute L subdural, 2.3 cm with 9 mm midline shift. He denies known trauma. He is not on anticoagulant however he has been treated for his CLL with ibrutinib. He states this was causing bruising so he held it for 30 days and resumed 09/12/17 at a lower dose. His last dose was the morning of 09/24. Review of medical literature indicates this drug is associated with spontaneous SDH and would place patient at risk for operative bleeding. Discussed with Dr. Gallagher and Dr. Rich regarding implications for operative timing. His oncologist is Dr. Minor at [facility] in [place]. 09/26: Awake, disoriented. Not in any acute distress. Having some headache. Following commands. 09/27: Awake and alert. Does not know month and date. Otherwise following commands. Not in any acute distress 09/28: Afebrile. Complaining of mild headache. No focal neurological deficits. Remains somewhat confused but follows general commands. SUBJECTIVE: 09/29: Afebrile. Complains of mild headache and requesting for pain medication. Remains somewhat confused but follows all commands. CT brain is slightly worse today, however patient's appears stable from a neurological standpoint. 09/30: Chronic lymphocytic leukemia and predictable underlying coagulopathy. Large left subdural hematoma of varying age. Remains symptomatic by headache and confusion. Increased risk of reaccumulation if surgically drained. 10/01: Patient is a little more lethargic this morning. He moves 4 extremities and he responds to questions but his general alertness is reduced. Additionally he went into new onset atrial fibrillation last night with a rapid ventricular response. He is now converted on an amiodarone drip and p.o. Lopressor. Cardiac enzymes have ruled out a myocardial injury. 10/02: Remains tachycardic but NSR now. We will convert Lopressor dose to 75 mg twice daily. He is much more alert today than yesterday. Repeat head CT ordered for today to assess mass-effect of subdural hematoma. 10/03: Alert this morning and responding normally. Remains confused. Repeat head CT with considerable mass-effect from extra-axial fluid collection. Midline shift persists at 11 mm. 10/04: Decompression and drainage large left acute and chronic subdural hematoma last evening. Easily extubated and breathing comfortably now. Protects his airway. Conversant. Remains confused but appears more alert today than preoperatively. 10/05: Alert this morning but trouble finding words and understanding. Moves 4 limbs with good strength. Tracks well with eyes. Protects airway well. 10/06: Much more agitated this morning and potential harm to himself. He has been intermittently confused. Reexpansion following evacuation of the hematoma went nicely and I do not suspect this is related to edema. Will discuss with neurosurgical service. Most recent CT scan looked good. Objective Vital Signs / I&O: Vital Signs 10/05/17 12:00 10/05/17 16:00 10/05/17 20:00 Temperature 97.7 F 98.5 F 98.6 F Pulse Rate 62 69 78 Respiratory Rate 18 18 23 Blood Pressure 103/58 L 133/58 L 154/78 H Pulse Oximetry 96 97 94 L 10/06/17 00:00 10/06/17 04:00 10/06/17 08:00 Temperature 98.4 F 98.5 F 98.5 F Pulse Rate 68 81 99 H Respiratory Rate 21 18 20 Blood Pressure 153/74 H 171/77 H 163/75 H Pulse Oximetry 96 96 95 Intake & Output 10/05/17 10/06/17 10/06/17 18:59 06:59 18:59 Intake Total 800 / 800 250 / 250 Output Total 680 / 680 700 / 700 Balance 120 / 120 -450 / -450 Weight 90 kg Intake: Oral 800 / 800 250 / 250 Output: Urine Amount (Catheter) 650 / 650 650 / 650 Indwelling Urethral Catheter 650 / 650 650 / 650 Wound Drainage 30 / 30 50 / 50 Head SARAH Drain 30 50 / 50 Other: # Voids 3 Date of Last Bowel Movement 10/05/17 10/05/17 10/05/17 # Bowel Movements 1 1 Result Diagrams: 10/05/17 04:25 10/05/17 04:25 Objective Remarks: GENERAL: 67-year-old well-developed patient SKIN: Warm and dry. No petechiae or rash. HEAD: Atraumatic. Normocephalic. EYES: Pupils equal and round about 3 mm bilaterally, reactive to light. No scleral icterus. No injection or drainage. ENT: No nasal bleeding or discharge. Mucous membranes pink and moist. NECK: Trachea midline. Airway widely patent and no obstructive noises. Swallows without difficulty. CARDIOVASCULAR: Regular rate and rhythm. S1, S2, without murmur. No JVD. RESPIRATORY: No accessory muscle use. Clear to auscultation. Breath sounds equal bilaterally. Comfortable respiratory pattern. GASTROINTESTINAL: Abdomen soft, non-tender, nondistended. Bowel sounds present. No guarding. MUSCULOSKELETAL: Extremities without significant peripheral edema. No obvious deformities. Warm, well-perfused. NEUROLOGICAL: Agitated confusion. Motor grossly within normal limits. Five out of 5 muscle strength in the arms and legs. Assessment and Plan - Problem List (1) Subdural hematoma Code(s): S06.5X9A - Traumatic subdural hemorrhage with loss of consciousness of unspecified duration, initial encounter Status: Acute (2) CLL (chronic lymphocytic leukemia) Code(s): C91.90 - Lymphoid leukemia, unspecified not having achieved remission Status: Chronic (3) Bleeding in brain due to blood coagulation disorder Code(s): I60.9 - Nontraumatic subarachnoid hemorrhage, unspecified; D68.9 - Coagulation defect, unspecified Status: Acute (4) HTN (hypertension) Code(s): I10 - Essential (primary) hypertension Status: Chronic (5) HLD (hyperlipidemia) Code(s): E78.5 - Hyperlipidemia, unspecified Status: Chronic (6) Transaminitis Code(s): R74.0 - Nonspecific elevation of levels of transaminase and lactic acid dehydrogenase [LDH] Status: Chronic (7) Hypokalemia Code(s): E87.6 - Hypokalemia Status: Acute (8) Hyponatremia Code(s): E87.1 - Hypo-osmolality and hyponatremia Status: Chronic (9) Atrial fibrillation with rapid ventricular response Code(s): I48.91 - Unspecified atrial fibrillation Status: Acute - Assessment and Plan Plan: NEURO: Acute on subacute left subdural hematoma, 2.3 cm with 9 mm midline shift. Admission to [facility] with neuro monitoring Hold ibrutinib. Will not be a candidate for resuming this, will need alternate therapy for CLL as this likely contributed to SDH. Keppra 500 mg po bid. Plan for eventual SDH evacuation, though discussing operative timing in view of antiplatelet effect of ibrutinib. Neurosurgery admitted, Dr. Rich Midline shift is increased by about 11 mm. Mary hole evacuation of large left acute on chronic subdural hematoma 10/03. Developed agitated confusion on 10/06, will try Zyprexa. RESP: On room air Protects airway well. CV: Hypertension Hyperlipidemia Paroxysmal atrial fibrillation with rapid ventricular response Hold statin for now, LFTs elevated. Labetalol prn for SBP >170 per NSG. Started on Lopressor for a fib prophylaxis now 75 mg p.o. twice daily. Remains in normal sinus rhythm. GI: Transaminitis. Passed swallow screen. Regular diet Elevated LFT due to CLL. Trend LFTs. Right upper quadrant ultrasound. FEN/RENAL: Mild Hyponatremia Hypokalemia Trend sodium daily. Hold HCTZ which may contribute to hyponatremia. 0.9 NaCL with 20 MEq KCL/L @ 50/hr. Voiding Replace electrolytes per electrolyte protocol. ID: Monitor for signs and symptoms of infection HEME: CLL - WBC 170k (per Dr. Gallagher this is expected effect of reinitiation of ibrutinib on 09/12) Coags and platelet count normal. Ibrutinib causes bleeding, T1/2 4-6 hours.. Causes platelet dysfunction (which may be irreversible for life of platelets) but appears mechanism of bleeding risk is not entirely clear and no reversal agent. Discussed with Dr. Gallagher who would recommend holding off on surgery if possible. I contacted Dr. Rich and will hold off on OR unless declines neurologically and it becomes unavoidable. Will transfuse with platelets preoperatively. Dr. Gallagher also indicates that alternate agent must be chosen in the future for CLL management hereafter. ENDO: Check TSH PROPH: SCDs for DVT prophylaxis. Pharmacology DVT prophylaxis contraindicated due to subdural. ACCESS: Peripheral IV providing adequate access at this time. Overall impression: Progressing well following decompression of large left acute on chronic subdural hematoma. He started developing severe agitated behavior with confusion today which hopefully we can control with an atypical antipsychotic. He is requiring 4 point restraints. Aside from agitation and confusion, his exam remains nonfocal.
--- NOTE | 2017-10-06 11:50 | P.PNNS ---
Subjective Interval history: 10/03: Patient went for a left parietal aristeo hole for evacuation of the subacute subdural haematoma. Post-operatively the patient was returned to [facility] for further care and monitoring. 10/04: This afternoon the patient is awake and alert in bed having lunch with assistance. He reports "not really" when asked if he has a headache, but Nursing reported that earlier he denied any but his came out and said that he had one. He is moving all extremities spontaneously and to command. He is oriented to person, place and time. Nursing reported that earlier he appeared to have pain to the knees with movement but after pain medication he was able to bend the knees without difficulty. 10/05: When seen the patient is asleep but does awaken to voice. He has no complaints. The patient does have some difficulty finding words. He moves all extremities to command and his strength seems to be normal. 10/06: The patient is asleep when seen but does awaken to voice. He denies any headache or dizziness. He continues to have some difficulty finding words and his speech is slow. He follows commands with all extremities and his muscle strength is normal. The patient is in four-point soft restraints when seen. Nursing reports that the patient became very agitated yesterday and attempted to leave, resulting in the restraints. The patient is on Olanzapine for his agitation which he received before being seen. <Christiano De Jesus E - Last Filed: 10/06/17 11:56> Physical Exam Vital signs: Vital Signs 10/05/17 12:00 10/05/17 16:00 10/05/17 20:00 Temperature 97.7 F 98.5 F 98.6 F Pulse Rate 62 69 78 Respiratory Rate 18 18 23 Blood Pressure 103/58 L 133/58 L 154/78 H Pulse Oximetry 96 97 94 L 10/06/17 00:00 10/06/17 04:00 10/06/17 08:00 Temperature 98.4 F 98.5 F 98.5 F Pulse Rate 68 81 99 H Respiratory Rate 21 18 20 Blood Pressure 153/74 H 171/77 H 163/75 H Pulse Oximetry 96 96 96 Intake & Output 10/05/17 10/06/17 10/06/17 18:59 06:59 18:59 Intake Total 800 / 800 250 / 250 Output Total 680 / 680 700 / 700 Balance 120 / 120 -450 / -450 Weight 90 kg Intake: Oral 800 / 800 250 / 250 Output: Urine Amount (Catheter) 650 / 650 650 / 650 Indwelling Urethral Catheter 650 / 650 650 / 650 Wound Drainage 50 / 50 Head SARAH Drain 50 / 50 Other: # Voids 3 Date of Last Bowel Movement 10/05/17 10/05/17 10/05/17 # Bowel Movements 1 1 Narrative: GENERAL: Asleep but awakens to voice, drowsy but does interact. Affect is flat. No apparent distress. In 4-point soft restraints. HEENT: Left side surgical incision well approximated w/lisandro, SARAH drain to bulb suction w/some serosanguinous-coloured drainage. PERRLA 3 mm brisk, EOMI. MMM & pink, tongue midline to protrusion. MUSCULOSKELETAL: SILVER to command. No evident clubbing or deformity. NEUROLOGICAL: Asleep but awakens, drowsy. Oriented to person, place & time. Speech clear but slow. He continues to have some mild expressive aphasia. Follows simple commands w/o difficulty. CN II through XII appear grossly intact. PERRLA 3 mm brisk, EOMI. Tongue midline to protrusion. Sensation to light touch intact to all extremities. SILVER to command, strength appears normal. - Urinary Catheter Management Indwelling Urethral Catheter Cath placed during this visit: yes Reason for continuing: Hourly intake/output Insertion date: 10/03/17 Insertion time: 22:19 <Christiano De Jesus - Last Filed: 10/06/17 11:56> - Urinary Catheter Management Indwelling Urethral Catheter Cath placed during this visit: no <Janak Church - Last Filed: 11/25/17 22:00> Assessment and Plan - Plan Impression: Moderate subacute subdural hematoma The patient is doing fairly well. He continues to have expressive aphasia but is otherwise neurologically intact. The patient is on Olanzapine for his agitation which he received before being seen. Past 24 hrs: Afebrile. Elevated SBP this morning. SARAH drain output of 80 mL for the past 24 hrs as of shift change this morning. No labs for today. CT brain demonstrates decrease in size of left SDH and decrease in mass effect & midline shift. POD #3 () s/p: Left parietal arsiteo hole for subdural hematoma Plan: Critical care management per [employer]. Neuro checks. Stat CT brain for any decline in neuro status. Monitor SARAH drain output. Hold pharmacologic DVT prophylaxis. Mechanical DVT prophylaxis. Stress ulcer prophylaxis. Will keep SARAH drain at this time. <Christiano De Jesus - Last Filed: 10/06/17 11:56> - Attending Attestation The exam, history, and the medical decision-making described in the above note were completed with the assistance of the mid-level provider. I reviewed and agree with the findings presented. I attest that I had a [id number] encounter with the patient on the same day, and personally performed and documented my assessment and findings in the medical record. <Janak Church - Last Filed: 11/25/17 22:00>
[2017-10-07 07:10] LABS: Baso # (Auto) 0.1 th/mm3 (0.0-0.2); Baso % (Auto) 0.3 % (0.0-2.0); Eos # (Auto) 0.3 th/mm3 (0.0-0.4); Eos % (Auto) 0.5 % (0.0-4.0); Hematocrit 30.5 % (39.0-51.0); Lymph # (Auto) 44.2 th/mm3 (1.0-4.8); Lymph % (Auto) 85.8 % (9.0-44.0); Mean Corpuscular HGB Conc 32.6 % (32.0-36.0); Mean Corpuscular Hemoglobin 29.8 pg (27.0-34.0); Mean Corpuscular Volume 91.3 fL (80.0-100.0); Mean Platelet Volume 8.3 fL (7.0-11.0); Mono # (Auto) 1.2 th/mm3 (0.0-0.9); Mono % (Auto) 2.4 % (0.0-8.0); Neut # (Auto) 5.7 th/mm3 (1.8-7.7); Platelet Count 196 th/mm3 (150-450); Red Blood Count 3.35 mil/mm3 (4.50-5.90); Red Cell Distribution Width 16.6 % (11.6-17.2); White Blood Count 51.5 th/mm3 (4.0-11.0)
[2017-10-07 07:34] LABS: Calcium 8.6 mg/dL (8.5-10.1); Carbon Dioxide 23.5 meq/L (21.0-32.0); Potassium 3.5 meq/L (3.5-5.1)
[2017-10-07 08:35] LABS: Monocytes 2 % (0-8)
[2017-10-07 08:36] LABS: Lymphocytes 85 % (9-44); Smudge Cells Present
[2017-10-07 08:37] LABS: Platelet Estimate Normal (Normal); Platelet Morphology Normal (Normal); RBC Morphology Normal (Normal)
[2017-10-07] MEDS: levETIRAcetam 500 MG Tablet PO SCH ×2 (09:08→20:43)
[2017-10-07] MEDS: Allopurinol 300 MG Tablet PO SCH (09:09)
[2017-10-07] MEDS: Loratadine 10 MG Tablet PO SCH (09:09)
[2017-10-07] MEDS: Senna/Docusate Sodium 8.6/50 MG Tablet PO SCH ×2 (09:09→20:42)
[2017-10-07] MEDS: Metoprolol Tartrate 25 MG Tablet PO SCH ×2 (09:09→20:42)
--- NOTE | 2017-10-07 10:38 | P.PNNS ---
Subjective Interval history: 10/03: Patient went for a left parietal aristeo hole for evacuation of the subacute subdural haematoma. Post-operatively the patient was returned to [facility] for further care and monitoring. 10/04: This afternoon the patient is awake and alert in bed having lunch with assistance. He reports "not really" when asked if he has a headache, but Nursing reported that earlier he denied any but his came out and said that he had one. He is moving all extremities spontaneously and to command. He is oriented to person, place and time. Nursing reported that earlier he appeared to have pain to the knees with movement but after pain medication he was able to bend the knees without difficulty. 10/05: When seen the patient is asleep but does awaken to voice. He has no complaints. The patient does have some difficulty finding words. He moves all extremities to command and his strength seems to be normal. 10/06: The patient is asleep when seen but does awaken to voice. He denies any headache or dizziness. He continues to have some difficulty finding words and his speech is slow. He follows commands with all extremities and his muscle strength is normal. The patient is in four-point soft restraints when seen. Nursing reports that the patient became very agitated yesterday and attempted to leave, resulting in the restraints. The patient is on Olanzapine for his agitation which he received before being seen. 10/07: Today the patient is awake and alert in the bed. His is visiting with him. Physical Therapy is at the bedside talking with him and getting ready to walk him. His restraints have been removed. His feels he is less confused than yesterday. There is no change in his neuro exam with evaluation. <Christiano De Jesus E - Last Filed: 10/07/17 10:45> Physical Exam Vital signs: Vital Signs 10/06/17 12:00 10/06/17 16:00 10/06/17 20:00 Temperature 98.4 F 98.5 F 98.2 F Pulse Rate 80 58 L 70 Respiratory Rate 18 19 20 Blood Pressure 160/77 H 116/62 143/81 H Pulse Oximetry 94 L 95 10/07/17 00:00 10/07/17 04:00 10/07/17 08:43 Temperature 98.7 F 98.3 F Pulse Rate 62 58 L Respiratory Rate 20 18 Blood Pressure 123/69 116/68 Pulse Oximetry 95 Intake & Output 10/06/17 10/07/17 10/07/17 18:59 06:59 18:59 Intake Total 300 / 300 60 / 60 Output Total 425 / 425 Balance 275 / 275 -365 / -365 Weight 89.6 kg Intake: Oral 300 / 300 60 / 60 Output: Urine 400 / 400 Wound Drainage Head SARAH Drain Other: # Voids 2 1 Date of Last Bowel Movement 10/06/17 # Bowel Movements 1 Narrative: GENERAL: Awake & alert in bed talking w/PT & visiting w/his . Affect is essentially normal. Readily interacts. No apparent distress. HEENT: Left side surgical incision well approximated w/lisandro, SARAH drain to bulb suction w/scant serosanguinous-coloured drainage. PERRLA 3 mm brisk, EOMI. MMM & pink, tongue midline to protrusion. MUSCULOSKELETAL: SILVER to command. No evident clubbing or deformity. NEUROLOGICAL: AAOx3. Speech clear and not as slow as yesterday. Still w/some confusion & mild expressive aphasia. Follows simple commands w/o difficulty. CN II through XII appear grossly intact. PERRLA 3 mm brisk, EOMI. Tongue midline to protrusion. Sensation to light touch intact to all extremities. SILVER to command, strength appears normal. - Urinary Catheter Management Indwelling Urethral Catheter Cath placed during this visit: yes Reason for continuing: Hourly intake/output Insertion date: 10/03/17 Insertion time: 22:19 <Christiano De Jesus - Last Filed: 10/07/17 10:45> - Urinary Catheter Management Indwelling Urethral Catheter Cath placed during this visit: no <Janak Church - Last Filed: 11/25/17 22:04> Assessment and Plan - Plan Impression: Moderate subacute subdural hematoma The patient is doing better today. He is less confused and his speech is improved. He has no sensorimotor deficits to the extremities. Past 24 hrs: Afebrile. HR intermittently into upper 50s. SARAH drain output of 50 mL for the past 24 hrs as of shift change this morning. Reviewed labs for today. Drop in leukocytosis & haemoglobin level from . Sodium 144. eGFR 69. CT brain demonstrates decrease in size of left SDH and decrease in mass effect & midline shift. POD #4 () s/p: Left parietal aristeo hole for subdural hematoma Plan: Critical care management per [employer]. Neuro checks. Stat CT brain for any decline in neuro status. Hold pharmacologic DVT prophylaxis. Mechanical DVT prophylaxis. Stress ulcer prophylaxis. Will d/c SARAH drain. <Christiano De Jesus - Last Filed: 10/07/17 10:45> - Attending Attestation The exam, history, and the medical decision-making described in the above note were completed with the assistance of the mid-level provider. I reviewed and agree with the findings presented. I attest that I had a [id number] encounter with the patient on the same day, and personally performed and documented my assessment and findings in the medical record. <Janak Church - Last Filed: 11/25/17 22:04>
--- NOTE | 2017-10-07 12:11 | P.PNCC ---
Subjective Subjective Remarks/Hospital Course: 67 yo WM with PMH of CLL (diagnosed 2007), HTN, HLD, gout who presented with 4 day history of headache. Today he had numbness and tingling on his right side and unsteady gait. CT brain demonstrates acute/subacute L subdural, 2.3 cm with 9 mm midline shift. He denies known trauma. He is not on anticoagulant however he has been treated for his CLL with ibrutinib. He states this was causing bruising so he held it for 30 days and resumed 09/12/17 at a lower dose. His last dose was the morning of 09/24. Review of medical literature indicates this drug is associated with spontaneous SDH and would place patient at risk for operative bleeding. Discussed with Dr. Gallagher and Dr. Rich regarding implications for operative timing. His oncologist is Dr. Minor at [facility] in [place]. 09/26: Awake, disoriented. Not in any acute distress. Having some headache. Following commands. 09/27: Awake and alert. Does not know month and date. Otherwise following commands. Not in any acute distress 09/28: Afebrile. Complaining of mild headache. No focal neurological deficits. Remains somewhat confused but follows general commands. 09/29: Afebrile. Complains of mild headache and requesting for pain medication. Remains somewhat confused but follows all commands. CT brain is slightly worse today, however patient's appears stable from a neurological standpoint. 09/30: Chronic lymphocytic leukemia and predictable underlying coagulopathy. Large left subdural hematoma of varying age. Remains symptomatic by headache and confusion. Increased risk of reaccumulation if surgically drained. 10/01: Patient is a little more lethargic this morning. He moves 4 extremities and he responds to questions but his general alertness is reduced. Additionally he went into new onset atrial fibrillation last night with a rapid ventricular response. He is now converted on an amiodarone drip and p.o. Lopressor. Cardiac enzymes have ruled out a myocardial injury. 10/02: Remains tachycardic but NSR now. We will convert Lopressor dose to 75 mg twice daily. He is much more alert today than yesterday. Repeat head CT ordered for today to assess mass-effect of subdural hematoma. 10/03: Alert this morning and responding normally. Remains confused. Repeat head CT with considerable mass-effect from extra-axial fluid collection. Midline shift persists at 11 mm. 10/04: Decompression and drainage large left acute and chronic subdural hematoma last evening. Easily extubated and breathing comfortably now. Protects his airway. Conversant. Remains confused but appears more alert today than preoperatively. 10/05: Alert this morning but trouble finding words and understanding. Moves 4 limbs with good strength. Tracks well with eyes. Protects airway well. 10/06: Much more agitated this morning and potential harm to himself. He has been intermittently confused. Reexpansion following evacuation of the hematoma went nicely and I do not suspect this is related to edema. Will discuss with neurosurgical service. Most recent CT scan looked good. SUBJECTIVE: 10/07: clinically much improved from yesterday. CAM-. no longer acutely delirious. SARAH drain removed today. alert and oriented, talking with family members on the cell phone. Objective Vital Signs / I&O: Vital Signs 10/06/17 16:00 10/06/17 20:00 10/07/17 00:00 Temperature 36.9 C 36.8 C 37.1 C Pulse Rate 58 L 70 62 Respiratory Rate 19 20 20 Blood Pressure 116/62 143/81 H 123/69 Pulse Oximetry 94 L 95 10/07/17 04:00 10/07/17 08:43 Temperature 36.8 C Pulse Rate 58 L Respiratory Rate 18 Blood Pressure 116/68 Pulse Oximetry 95 Intake & Output 10/06/17 10/07/17 10/07/17 18:59 06:59 18:59 Intake Total 300 / 300 60 / 60 Output Total 25 / 25 425 / 425 Balance 275 / 275 -365 / -365 Weight 89.6 kg Intake: Oral 300 / 300 60 / 60 Output: Urine 400 / 400 Wound Drainage 25 / 25 25 / 25 Head SARAH Drain 25 / 25 25 / 25 Other: # Voids 2 1 Date of Last Bowel Movement 10/06/17 # Bowel Movements 1 Result Diagrams: 10/07/17 05:21 10/07/17 05:21 Objective Remarks: GENERAL: 67-year-old well-developed patient SKIN: Warm and dry. No petechiae or rash. HEAD: Atraumatic. Normocephalic. EYES: Pupils equal and round about 3 mm bilaterally, reactive to light. No scleral icterus. No injection or drainage. ENT: No nasal bleeding or discharge. Mucous membranes pink and moist. NECK: Trachea midline. Airway widely patent and no obstructive noises. Swallows without difficulty. CARDIOVASCULAR: Regular rate and rhythm. No JVD. RESPIRATORY: No accessory muscle use. equal chest rise. Comfortable respiratory pattern. GASTROINTESTINAL: Abdomen soft, non-tender, nondistended. No guarding. MUSCULOSKELETAL: Extremities without significant peripheral edema. No obvious deformities. Warm, well-perfused. NEUROLOGICAL: awake, alert, conversant. CAM-. RASS 0. neuro intact. Assessment and Plan - Problem List (1) Subdural hematoma Code(s): S06.5X9A - Traumatic subdural hemorrhage with loss of consciousness of unspecified duration, initial encounter Status: Acute (2) CLL (chronic lymphocytic leukemia) Code(s): C91.90 - Lymphoid leukemia, unspecified not having achieved remission Status: Chronic (3) Bleeding in brain due to blood coagulation disorder Code(s): I60.9 - Nontraumatic subarachnoid hemorrhage, unspecified; D68.9 - Coagulation defect, unspecified Status: Acute (4) HTN (hypertension) Code(s): I10 - Essential (primary) hypertension Status: Chronic (5) HLD (hyperlipidemia) Code(s): E78.5 - Hyperlipidemia, unspecified Status: Chronic (6) Transaminitis Code(s): R74.0 - Nonspecific elevation of levels of transaminase and lactic acid dehydrogenase [LDH] Status: Chronic (7) Hypokalemia Code(s): E87.6 - Hypokalemia Status: Acute (8) Hyponatremia Code(s): E87.1 - Hypo-osmolality and hyponatremia Status: Chronic (9) Atrial fibrillation with rapid ventricular response Code(s): I48.91 - Unspecified atrial fibrillation Status: Acute - Assessment and Plan Plan: Assessment: 67yM with CLL and acute subdural s/p aristeo hole decompression. his course has been complicated by acute agitated delirium which is now resolving. continue zyprexa and non-pharmacologic day/night orientation. from my standpoint , stable for transfer out of ICU, and this may actually help his delirium to be out of an ICU setting. NEURO: Acute on subacute left subdural hematoma, 2.3 cm with 9 mm midline shift. Agitated Delirium- resolving. Hold ibrutinib. Will not be a candidate for resuming this, will need alternate therapy for CLL as this likely contributed to SDH. Keppra 500 mg po bid. s/p SDH evacuation Neurosurgery admitted, Dr. Rich [place] hole evacuation of large left acute on chronic subdural hematoma 10/03. Developed agitated confusion on 10/06, started on Zyprexa, now improving mental status. RESP: On room air Protects airway well. CV: Hypertension Hyperlipidemia Paroxysmal atrial fibrillation with rapid ventricular response Hold statin for now, LFTs elevated. Labetalol prn for SBP >170 per NSG. Started on Lopressor for a fib prophylaxis now 75 mg p.o. twice daily. Remains in normal sinus rhythm. GI: Transaminitis. Passed swallow screen. Regular diet Elevated LFT due to CLL. Trend LFTs. Right upper quadrant ultrasound. FEN/RENAL: Mild Hyponatremia Hypokalemia Trend sodium daily. Hold HCTZ which may contribute to hyponatremia. 0.9 NaCL with 20 MEq KCL/L @ 50/hr. Voiding Replace electrolytes per electrolyte protocol. ID: Monitor for signs and symptoms of infection HEME: CLL - WBC 170k (per Dr. Gallagher this is expected effect of reinitiation of ibrutinib on 09/12) Coags and platelet count normal. Ibrutinib causes bleeding, T1/2 4-6 hours.. Causes platelet dysfunction (which may be irreversible for life of platelets) but appears mechanism of bleeding risk is not entirely clear and no reversal agent. Discussed with Dr. Gallagher who would recommend holding off on surgery if possible. I contacted Dr. Rich and will hold off on OR unless declines neurologically and it becomes unavoidable. Will transfuse with platelets preoperatively. Dr. Gallagher also indicates that alternate agent must be chosen in the future for CLL management hereafter. ENDO: Check TSH PROPH: SCDs for DVT prophylaxis. Pharmacology DVT prophylaxis contraindicated due to subdural. ACCESS: Peripheral IV providing adequate access at this time. Overall impression: Progressing well following decompression of large left acute on chronic subdural hematoma. much improved. will consult hospitalist services to assist in managing comorbid conditions. from my standpoint, stable to transfer out of ICU, but will allow neurosurgery to guide that decision.
[2017-10-08 07:23] LABS: Baso # (Auto) 0.3 th/mm3 (0.0-0.2); Baso % (Auto) 0.4 % (0.0-2.0); Eos # (Auto) 0.4 th/mm3 (0.0-0.4); Eos % (Auto) 0.5 % (0.0-4.0); Hematocrit 35.6 % (39.0-51.0); Hemoglobin 11.5 gm/dL (13.0-17.0); Lymph # (Auto) 64.4 th/mm3 (1.0-4.8); Lymph % (Auto) 88.7 % (9.0-44.0); Mean Corpuscular HGB Conc 32.1 % (32.0-36.0); Mean Corpuscular Hemoglobin 29.7 pg (27.0-34.0); Mean Corpuscular Volume 92.5 fL (80.0-100.0); Mean Platelet Volume 8.7 fL (7.0-11.0); Mono # (Auto) 0.6 th/mm3 (0.0-0.9); Mono % (Auto) 0.8 % (0.0-8.0); Neut % (Auto) 9.6 % (16.0-70.0); Platelet Count 248 th/mm3 (150-450); Red Blood Count 3.85 mil/mm3 (4.50-5.90); Red Cell Distribution Width 16.7 % (11.6-17.2); White Blood Count 72.6 th/mm3 (4.0-11.0)
[2017-10-08 07:24] LABS: INR 1.1 Ratio; Prothrombin Time 10.7 sec (9.8-11.6)
[2017-10-08 07:54] LABS: Albumin 3.2 g/dL (3.4-5.0); Anion Gap 10 meq/L (5-15); Aspartate Aminotransferase 19 U/L (15-37); Blood Urea Nitrogen 22 mg/dL (7-18); Calcium 8.9 mg/dL (8.5-10.1); Carbon Dioxide 23.1 meq/L (21.0-32.0); Chloride 110 meq/L (98-107); Glomerular Filtration Rate 59 mL/min (>89); Glucose,Random 76 mg/dL (74-106); Potassium 3.9 meq/L (3.5-5.1); Sodium 143 meq/L (136-145)
[2017-10-08 07:55] LABS: Alanine Aminotransferase 41 U/L (12-78); Phosphorus 3.4 mg/dL (2.5-4.9)
[2017-10-08 08:03] LABS: Alkaline Phosphatase 279 U/L (45-117); Total Protein 6.5 g/dL (6.4-8.2)
[2017-10-08 08:23] LABS: Eosinophils 1 % (0-4); Lymphocytes 90 % (9-44); Monocytes 5 % (0-8); Platelet Estimate Normal (Normal); Platelet Morphology Normal (Normal)
[2017-10-08] MEDS: Loratadine 10 MG Tablet PO SCH (08:26)
[2017-10-08] MEDS: Senna/Docusate Sodium 8.6/50 MG Tablet PO SCH (08:26)
[2017-10-08] MEDS: Allopurinol 300 MG Tablet PO SCH (08:27)
[2017-10-08] MEDS: levETIRAcetam 500 MG Tablet PO SCH (08:27)
[2017-10-08] MEDS: Metoprolol Tartrate 25 MG Tablet PO SCH (08:39)
--- NOTE | 2017-10-08 11:34 | P.PNNS ---
Subjective Interval history: 10/03: Patient went for a left parietal aristeo hole for evacuation of the subacute subdural haematoma. Post-operatively the patient was returned to [facility] for further care and monitoring. 10/04: This afternoon the patient is awake and alert in bed having lunch with assistance. He reports "not really" when asked if he has a headache, but Nursing reported that earlier he denied any but his came out and said that he had one. He is moving all extremities spontaneously and to command. He is oriented to person, place and time. Nursing reported that earlier he appeared to have pain to the knees with movement but after pain medication he was able to bend the knees without difficulty. 10/05: When seen the patient is asleep but does awaken to voice. He has no complaints. The patient does have some difficulty finding words. He moves all extremities to command and his strength seems to be normal. 10/06: The patient is asleep when seen but does awaken to voice. He denies any headache or dizziness. He continues to have some difficulty finding words and his speech is slow. He follows commands with all extremities and his muscle strength is normal. The patient is in four-point soft restraints when seen. Nursing reports that the patient became very agitated yesterday and attempted to leave, resulting in the restraints. The patient is on Olanzapine for his agitation which he received before being seen. 10/07: Today the patient is awake and alert in the bed. His is visiting with him. Physical Therapy is at the bedside talking with him and getting ready to walk him. His restraints have been removed. His feels he is less confused than yesterday. There is no change in his neuro exam with evaluation. 10/08: This morning the patient is awake and alert in bed watching TV. He had no complaints of headache, dizziness or visual problems. His neuro exam remains stable. Speech, Physical and Occupational Therapy have all recommended further rehab inpatient. Case Management states that [facility] is looking at the patient. <Christiano De Jesus E - Last Filed: 10/08/17 11:40> Physical Exam Vital signs: Vital Signs 10/07/17 12:00 10/07/17 15:18 10/07/17 16:00 Temperature 99.0 F 98.6 F Pulse Rate 70 68 70 Respiratory Rate 20 18 25 H Blood Pressure 157/74 H 137/70 144/73 H Pulse Oximetry 96 95 96 10/07/17 20:00 10/07/17 22:52 10/08/17 00:00 Temperature 98.9 F 99.3 F Pulse Rate 80 58 L Respiratory Rate 20 18 Blood Pressure 163/75 H 119/69 Pulse Oximetry 10/08/17 04:00 10/08/17 08:27 10/08/17 08:45 Temperature 98.4 F Pulse Rate 62 Respiratory Rate 22 21 Blood Pressure 162/79 H Pulse Oximetry 98 99 Intake & Output 10/07/17 10/08/17 10/08/17 18:59 06:59 18:59 Intake Total 720 / 720 120 / 120 Output Total 465 / 465 350 / 350 Balance 255 / 255 -230 / -230 Weight 89.6 kg Intake: Oral 720 / 720 120 / 120 Output: Urine 450 / 450 350 / 350 Wound Drainage Head SARAH Drain Other: # Voids 1 Date of Last Bowel Movement 10/06/17 # Bowel Movements 1 Narrative: GENERAL: Awake & alert in bed watching TV. Affect is normal. Readily interacts. No apparent distress. HEENT: Left side surgical incision well approximated w/lisandro, SARAH drain insertion site well approximated w/steri-strips, no drainage, erythema or streaking from either. PERRLA 3 mm brisk, EOMI. MMM & pink, tongue midline to protrusion. MUSCULOSKELETAL: SILVER to command. No evident clubbing or deformity. NEUROLOGICAL: AAOx3. Speech clear and fairly normal. Still w/some mild expressive aphasia. Follows simple commands w/o difficulty. CN II through XII appear grossly intact. PERRLA 3 mm brisk, EOMI. Tongue midline to protrusion. Sensation to light touch intact to all extremities. SILVER to command, strength normal. - Urinary Catheter Management Indwelling Urethral Catheter Cath placed during this visit: yes Reason for continuing: Hourly intake/output Insertion date: 10/03/17 Insertion time: 22:19 <Christiano De Jesus - Last Filed: 10/08/17 11:40> - Urinary Catheter Management Indwelling Urethral Catheter Cath placed during this visit: no <Janak Church - Last Filed: 11/25/17 22:07> Assessment and Plan - Plan Impression: Moderate subacute subdural hematoma The patient continues to do well. He still has some mild expressive aphasia. He has no sensorimotor deficits to the extremities. Past 24 hrs: 99.3 T max. HR 58 at midnight. Intermittent tachypnea. SBP intermittently into 160s. SARAH drain output of 15 mL for the past 24 hrs as of shift change this morning. SARAH drain d/c'd . Speech Therapy feels patient would benefit from continued therapy for his mild expressive aphasia. Physical & Occupational Therapy recommend inpatient rehab for further therapy. Reviewed labs for today. Increase in leukocytosis & haemoglobin level. Sodium 143. eGFR 59. Elevation in alk phos. TSH elevated. CT brain demonstrates decrease in size of left SDH and decrease in mass effect & midline shift. POD #5 () s/p: Left parietal aristeo hole for subdural hematoma Plan: Critical care management per [facility]. Neuro checks. Stat CT brain for any decline in neuro status. Hold pharmacologic DVT prophylaxis. Mechanical DVT prophylaxis. Stress ulcer prophylaxis. Patient able to be transferred to a regular med/surg floor or discharged to [facility] for further inpatient therapy. <Christiano De Jesus - Last Filed: 10/08/17 11:40> - Attending Attestation The exam, history, and the medical decision-making described in the above note were completed with the assistance of the mid-level provider. I reviewed and agree with the findings presented. I attest that I had a [id number] encounter with the patient on the same day, and personally performed and documented my assessment and findings in the medical record. <Janak Church - Last Filed: 11/25/17 22:07>
--- NOTE | 2017-10-08 12:33 | P.PN ---
Subjective Interval history: Follow-up for subdural hematoma status post surgical evacuation. Patient is currently doing well. No acute concerns. Denies any chest pain, shortness of breath, fever or chills. Physical Exam Vital signs: Vital Signs 10/07/17 15:18 10/07/17 16:00 10/07/17 20:00 Temperature 98.6 F 98.9 F Pulse Rate 68 70 80 Respiratory Rate 18 25 H 18 Blood Pressure 137/70 144/73 H 163/75 H Pulse Oximetry 95 96 10/07/17 22:52 10/08/17 00:00 10/08/17 04:00 Temperature 99.3 F 98.4 F Pulse Rate 58 L 62 Respiratory Rate 20 18 22 Blood Pressure 119/69 162/79 H Pulse Oximetry 98 10/08/17 08:00 10/08/17 08:27 10/08/17 08:45 Temperature 98.0 F Pulse Rate 63 Respiratory Rate 21 21 Blood Pressure 142/72 H Pulse Oximetry 94 L 99 10/08/17 10:00 Temperature Pulse Rate 58 L Respiratory Rate Blood Pressure Pulse Oximetry Intake & Output 10/07/17 10/08/17 10/08/17 18:59 06:59 18:59 Intake Total 720 / 720 120 / 120 Output Total 465 / 465 350 / 350 Balance 255 / 255 -230 / -230 Weight 89.6 kg Intake: Oral 720 / 720 120 / 120 Output: Urine 450 / 450 350 / 350 Wound Drainage Head SARAH Drain Other: # Voids 1 Date of Last Bowel Movement 10/06/17 # Bowel Movements 1 Narrative: GENERAL: Alert, Oriented x 3, NAD. SKIN: Warm and dry. HEAD: Normocephalic. Left side surgical incision side unremarkable. No drainage. EYES: No scleral icterus. No injection or drainage. NECK: Supple, trachea midline. No JVD or lymphadenopathy. CARDIOVASCULAR: Regular rate and rhythm without murmurs, gallops, or rubs. RESPIRATORY: Breath sounds equal bilaterally. No accessory muscle use. GASTROINTESTINAL: Abdomen soft, non-tender, nondistended. MUSCULOSKELETAL: No cyanosis, or edema. BACK: Nontender without obvious deformity. No CVA tenderness. - Urinary Catheter Management Indwelling Urethral Catheter Cath placed during this visit: yes Reason for continuing: Hourly intake/output Insertion date: 07/12/18 Insertion time: 22:19 Results - Labs CBC & Chem 7: 10/08/17 05:51 10/08/17 05:51 Laboratory Results - last 24 hr 10/08/17 10/08/17 10/08/17 05:51 05:51 05:51 WBC 72.6 H RBC 3.85 L Hgb 11.5 L Hct 35.6 L MCV 92.5 MCH 29.7 MCHC 32.1 RDW 16.7 Plt Count 248 MPV 8.7 Prelim Diff (Auto) Slide review pending Neut % (Auto) 9.6 L Lymph % (Auto) 88.7 H [place] % (Auto) 0.8 Eos % (Auto) 0.5 Baso % (Auto) 0.4 Neut # (Auto) 7.0 Lymph # (Auto) 64.4 H [place] # (Auto) 0.6 Eos # (Auto) 0.4 Baso # (Auto) 0.3 H WBC Differential Manual diff final Seg Neuts % (Manual) 4 L Lymphocytes % (Manual) 90 H Monocytes % (Manual) 5 Eosinophils % (Manual) 1 Abs Neuts (Manual) 2.9 Differential Comment . Platelet Estimate Normal Platelet Morphology Normal PT 10.7 INR 1.1 Sodium 143 Potassium 3.9 Chloride 110 H Carbon Dioxide 23.1 Anion Gap 10 BUN 22 H Creatinine 1.22 Estimated GFR 59 L Random Glucose 76 Calcium 8.9 Phosphorus 3.4 Magnesium 2.0 Total Bilirubin 0.5 AST 19 ALT 41 Alkaline Phosphatase 279 H Total Protein 6.5 Albumin 3.2 L TSH 4.330 H Free T4 1.30 - Imaging Chest X-Ray 09/25/17 00:00 CONCLUSION: Mild basilar opacity, probably atelectasis. Small right pleural effusion. Head CT 09/25/17 10:29 CONCLUSION: 1. Acute left-sided subdural hematoma with [id number] midline shift of 9 mm. Liver Ultrasound 09/26/17 00:00 CONCLUSION: 1. Hepatosplenomegaly with mild increase in hepatic echogenicity. Differential considerations include hepatitis, hepatic steatosis or medical liver disease. 2. Diffuse gallbladder wall thickening. This finding is typically seen with chronic liver disease/hypoalbuminemia. Head CT 09/29/17 00:01 CONCLUSION: Left-sided mixed density subdural hematoma measures slightly larger than on the comparison study. Left to right midline shift also measures slightly greater than on the comparison study. Chest X-Ray 09/30/17 06:00 CONCLUSION: 1. Improved aeration at the lung bases. Head CT 10/02/17 00:00 CONCLUSION: 1. Mixed left-sided subdural hematoma with acute and chronic hemorrhage measuring up to 2.4 cm in thickness with about 11 mm of [id number] midline shift. Mass effect is similar to September 29. Head CT 10/04/17 12:00 CONCLUSION: 1. Placement of left subdural drain with decrease in size LEFT subdural hematoma and decrease in mass effect and midline shift. Assessment and Plan - Assessment (1) Subdural hematoma Code(s): S06.5X9A - Traumatic subdural hemorrhage with loss of consciousness of unspecified duration, initial encounter Status: Acute (2) Atrial fibrillation Code(s): I48.91 - Unspecified atrial fibrillation Status: Acute (3) CLL (chronic lymphocytic leukemia) Code(s): C91.90 - Lymphoid leukemia, unspecified not having achieved remission Status: Chronic - Plan Mr. Payne is a pleasant 67-year-old male with a history of CLL, atrial fibrillation who presented to the emergency department on 09/25/2017 due to 4 day duration of headache. CT brain showed subdural hematoma on the left side 2.3 cm with 9 mm midline shift. Neurosurgery was consulted. Patient underwent left-sided palpable evacuation. Patient remained under critical care until 10/07/2017. SARAH drain was removed on 10/07/2017. Patient clinically improved significantly including his confusion. Left-sided subdural hematoma -Status post surgical evacuation by neurosurgery on 10/03/2017. -Neurosurgery invited clearance for discharge to [place] are another rehab. -Continue Keppra 500 mg p.o. twice daily Atrial fibrillation -Continue metoprolol tartrate 75 mg p.o. twice daily. -No anticoagulation due to recent subdural hematoma. CLL -follow-up in the outpatient setting. Hypertension -systolic blood pressure in the 140s. Will initiate antihypertensive if needed. Full code. SCDs for DVT prophylaxis. Patient can be transferred to the floor. He also can be discharged to [place] or other SNF if arranged.
--- NOTE | 2017-10-08 17:23 | P.DS ---
Date of admission: 09/25/17 12:04 Primary care physician: [facility] Brief History from admission: 67-year-old male history of chronic lymphocytic leukemia who presented to [place] emergency room today for evaluation of headache and numbness/tingling on his right side. Patient states that the headache started 4 days ago, was in the left side, rated 7 out of 10, comes and goes associated with nausea, he thought it is going to get better on its own but this morning patient woke up with numbness and weakness on his right side that started about 5 hours ago and subsequently did improve prior to arrival to the ER. Patient states that the numbness and tingling on his right side was associated with gait instability/ slow gait. He relates that the numbness has resolved and the weakness is gotten better but not resolved and has persistent abnormal, he has no blurred vision, no slurred speech, no weakness or sensory loss. Patient has a history of CLL and takes oral Ibrutinib 140 mg 2 PILLS a day, he says that it usually gives him bruises, he denies any black stool, no fever or chills, no cough or congestion. No chest pain or abdominal pain. His hematology oncology is Dr. Pink at [place]. CT scan of the head obtained reveals a large left sided acute on chronic subdural hemorrhage with mass-effect and midline shift. He denies any history of falls or trauma to the head any time in the last several weeks. He is transferred to [facility] intensive care unit for further management. DS: Diagnosis - Discharge Diagnosis (1) Subdural hematoma Status: Acute (2) Atrial fibrillation Status: Acute (3) CLL (chronic lymphocytic leukemia) Status: Chronic DS: Summary Hospital Course: Mr. Payne is a pleasant 67-year-old male with a history of CLL, atrial fibrillation who presented to the emergency department on 09/25/2017 due to 4 day duration of headache. CT brain showed subdural hematoma on the left side 2.3 cm with 9 mm midline shift. Neurosurgery was consulted. Patient underwent left-sided palpable evacuation. Patient remained under critical care until 10/07/2017. SARAH drain was removed on 10/07/2017. Patient clinically improved significantly including his confusion. Left-sided subdural hematoma -Status post surgical evacuation by neurosurgery on 10/03/2017. -Neurosurgery gave clearance for discharge to [place] are another rehab. -Continue Keppra 500 mg p.o. twice daily Atrial fibrillation -Continue metoprolol tartrate 75 mg p.o. twice daily. -No anticoagulation due to recent subdural hematoma. CLL -follow-up in the outpatient setting. Hypertension -systolic blood pressure in the 140s. Will initiate antihypertensive if needed. Full code. SCDs for DVT prophylaxis. - Time Spent with Patient Total time spent providing and/or coordinating discharge services: - Quality: VTE Deep Vein Thrombosis/Pulmonary Embolism Present on Admission: No Exam Vital signs: Vital Signs 10/07/17 20:00 10/07/17 22:52 10/08/17 00:00 Temperature 98.9 F 99.3 F Pulse Rate 80 58 L Respiratory Rate 18 20 18 Blood Pressure 163/75 H 119/69 Pulse Oximetry 10/08/17 04:00 10/08/17 08:00 10/08/17 08:27 Temperature 98.4 F 98.0 F Pulse Rate 62 63 Respiratory Rate 22 21 21 Blood Pressure 162/79 H 142/72 H Pulse Oximetry 98 94 L 10/08/17 08:45 10/08/17 10:00 10/08/17 12:00 Temperature 98.0 F Pulse Rate 58 L 60 Respiratory Rate 25 H Blood Pressure 153/71 H Pulse Oximetry 99 94 L 10/08/17 15:51 10/08/17 16:00 Temperature 98.7 F Pulse Rate 66 68 Respiratory Rate 20 Blood Pressure 132/61 Pulse Oximetry 96 Intake & Output 10/07/17 10/08/17 10/08/17 18:59 06:59 18:59 Intake Total 720 / 720 120 / 120 Output Total 465 / 465 350 / 350 Balance 255 / 255 -230 / -230 Weight 89.6 kg Intake: Oral 720 / 720 120 / 120 Output: Urine 450 / 450 350 / 350 Wound Drainage Head SARAH Drain Other: # Voids 1 Date of Last Bowel Movement 10/06/17 # Bowel Movements 1 Results Procedures completed during hospitalization: 10/04/2017 Left parietal aristeo hole for subdural hematoma Labs on day of discharge: Labs from last 24 hours 10/08/17 10/08/17 10/08/17 05:51 05:51 05:51 WBC RBC Hgb Hct MCV MCH MCHC RDW Plt Count MPV Prelim Diff (Auto) Neut % (Auto) Lymph % (Auto) [place] % (Auto) Eos % (Auto) Baso % (Auto) Neut # (Auto) Lymph # (Auto) [place] # (Auto) Eos # (Auto) Baso # (Auto) WBC Differential Seg Neuts % (Manual) Lymphocytes % (Manual) Monocytes % (Manual) Eosinophils % (Manual) Abs Neuts (Manual) Differential Comment Platelet Estimate Platelet Morphology PT 10.7 INR 1.1 Sodium 143 Potassium 3.9 Chloride 110 H Carbon Dioxide 23.1 Anion Gap 10 BUN 22 H Creatinine 1.22 Estimated GFR 59 L Random Glucose 76 Hemoglobin A1c 5.0 Calcium 8.9 Phosphorus 3.4 Magnesium 2.0 Total Bilirubin 0.5 AST 19 ALT 41 Alkaline Phosphatase 279 H Total Protein 6.5 Albumin 3.2 L TSH 4.330 H Free T4 1.30 10/08/17 05:51 WBC 72.6 H RBC 3.85 L Hgb 11.5 L Hct 35.6 L MCV 92.5 MCH 29.7 MCHC 32.1 RDW 16.7 Plt Count 248 MPV 8.7 Prelim Diff (Auto) Slide review pending Neut % (Auto) 9.6 L Lymph % (Auto) 88.7 H [place] % (Auto) 0.8 Eos % (Auto) 0.5 Baso % (Auto) 0.4 Neut # (Auto) 7.0 Lymph # (Auto) 64.4 H [place] # (Auto) 0.6 Eos # (Auto) 0.4 Baso # (Auto) 0.3 H WBC Differential Manual diff final Seg Neuts % (Manual) 4 L Lymphocytes % (Manual) 90 H Monocytes % (Manual) 5 Eosinophils % (Manual) 1 Abs Neuts (Manual) 2.9 Differential Comment . Platelet Estimate Normal Platelet Morphology Normal PT INR Sodium Potassium Chloride Carbon Dioxide Anion Gap BUN Creatinine Estimated GFR Random Glucose Hemoglobin A1c Calcium Phosphorus Magnesium Total Bilirubin AST ALT Alkaline Phosphatase Total Protein Albumin TSH Free T4 - Impressions ITS Impressions Liver Ultrasound 09/26/17 00:00 CONCLUSION: 1. Hepatosplenomegaly with mild increase in hepatic echogenicity. Differential considerations include hepatitis, hepatic steatosis or medical liver disease. 2. Diffuse gallbladder wall thickening. This finding is typically seen with chronic liver disease/hypoalbuminemia. Chest X-Ray 09/30/17 06:00 CONCLUSION: 1. Improved aeration at the lung bases. Head CT 10/04/17 12:00 CONCLUSION: 1. Placement of left subdural drain with decrease in size LEFT subdural hematoma and decrease in mass effect and midline shift. Discharge Plan - Discharge Disposition Patient Disposition: [facility] Inpatient - Discharge Condition Condition: Stable - Discharge Order Discharge Orders: Discharge Order (Routine); Ordered 10/08/17 Ordered By: Kenton Solitario - Discharge Details Anticipated Discharge Date: 10/08/17 Discharge Comment: Discussed with Neurosurgery (MAXINE Sloan) who cleared for discharge to In-patient rehab. - Physicians Team Attending Provider: See Rich Other Providers: Maria Isabel Hernandez MD ; Morenita Eddy ; Kenton Solitario,
== END 2017-10-08 17:00 ==
LOC: PHED 09:59 → PHEDA 12:04 → N03 13:12
PROVIDERS: ADMIT Neurological Surgery; ATTEND Neurological Surgery